=== PATIENT | female | born 1940 | race Caucasian/White ===

== ENCOUNTER 2020-05-06 08:16 | Outpatient (REF) | payer OTHER, SELFPAY ==
[2020-05-06 09:31] LABS: Alanine Aminotransferase 11 U/L (0-31); Albumin Level 3.9 g/dL (3.5-5.0); Alkaline Phosphatase 94 U/L (39-117); Aspartate Amino Transferase 14 U/L (5-31); Bilirubin Total 0.4 mg/dL (0.0-1.0); Blood Urea Nitrogen 17 mg/dL (9-16); Calcium 9.2 mg/dL (8.4-10.2); Cholesterol 134 mg/dL; Estimated Glomerular Filt Rate > 60; Glucose Fasting 100 mg/dL (60-99); HDL Cholesterol 60 mg/dL; LDL Cholesterol Calculated 60 mg/dl; Total Protein 7.3 g/dL (6.5-8.0); Triglycerides 74 mg/dL
[2020-05-06 09:56] LABS: Anion Gap 11 (12-20); Carbon Dioxide 29 mmol/L (22-29); Chloride 105 mmol/L (96-108); Sodium 141 mmol/L (135-145)
== END 2020-05-06 08:17 | disposition home or self-care (01) ==
LOC: HO.LAB 08:16
PROVIDERS: PCP Internal Medicine; Visit Provider Internal Medicine
DX: I10 Essential (primary) hypertension (principal); E55.9 Vitamin D deficiency, unspecified
CPT/HCPCS: 80053; 80061

== ENCOUNTER 2020-05-20 10:46 | Outpatient (REF) | payer OTHER, SELFPAY ==
--- NOTE | 2020-05-20 10:52 | MM_ITS ---
EXAMINATION: MM BREAST SCREENING DIGITAL TOMOSYNTHESIS, BILATERAL CLINICAL INFORMATION: Screening. Asymptomatic. The lifetime risk of breast cancer based on the Tyrer-Cuzick Model is 3.4%. COMPARISON: Mammography: 02/20/2019 and studies dating back to 02/04/2014. TECHNIQUE: Digital breast tomosynthesis is performed in both the craniocaudal and mediolateral oblique views along with computer-aided detection (CAD). Synthesized 2D images are generated from the tomosynthesis. Additional left exaggerated craniocaudal view performed. FINDINGS: The breasts are heterogeneously dense, which may obscure small masses (ACR BI-RADS breast composition Category c). There are no significant masses, abnormal calcifications, or other abnormalities. Region of questioned architectural distortion about the mid lateral breast on CC view only, is shown on tomosynthesis to represent superimposition of fibroglandular tissue. MM/MM tomosynthesis screening BI IMPRESSION: There are no significant changes from prior study. ASSESSMENT: BI-RADS 1: Negative RECOMMENDATION: Routine annual mammography screening. This patient's information was entered into a reminder system with a target due date for their next mammogram.
== END 2020-05-20 10:47 | disposition home or self-care (01) ==
LOC: HO.MAMMO 10:46
PROVIDERS: PCP Internal Medicine; Visit Provider Internal Medicine
DX: Z12.31 Encounter for screening mammogram for malignant neoplasm of breast (principal)
CPT/HCPCS: 77063; 77067

== ENCOUNTER 2020-08-28 11:08 | Outpatient (REF) | payer OTHER, SELFPAY | END 2020-08-28 11:09 | disposition home or self-care (01) | LOC: HO.LAB 11:08 | PROVIDERS: Visit Provider Internal Medicine | DX: Z20.822 Contact with and (suspected) exposure to COVID-19 (principal) | CPT/HCPCS: 36415; C9803; U0003 ==

== ENCOUNTER 2020-09-14 08:47 | Outpatient (REF) | payer MEDICARE, SELFPAY ==
[2020-09-14 09:13] LABS: MANUAL DIFF FLAG NO
[2020-09-14 09:18] LABS: Basophils Percent Auto 0.9 % (0-2); Eosinophils Absolute Auto 0.1 X10*3/uL (0.0-0.4); Eosinophils Percent Auto 1.9 % (0-4); Hematocrit 36.7 % (37-47); Hemoglobin 11.2 g/dl (12.0-16.0); Imm Gran Abs Auto 0.01 X10*3/uL (0.00-0.03); Imm Gran Pct Auto 0.2 % (0.0-0.4); Lymphocytes Absolute Auto 2.1 X10*3/uL (1.2-4.9); Lymphocytes Percent Auto 49.1 % (20-40); Mean Corpuscular HGB Conc 30.5 g/dl (31.0-35.0); Mean Corpuscular Hemoglobin 26.2 pg (27.0-33.0); Mean Corpuscular Volume 85.9 fL (80-98); Mean Platelet Volume 10.2 fL (9.4-12.3); Monocytes Absolute Auto 0.4 X10*3/uL (0.1-1.2); Monocytes Percent Auto 9.3 % (2-11); Neutrophils Absolute Auto 1.7 X10*3/uL (2.0-8.3); Neutrophils Percent Auto 38.6 % (45-73); Platelet Count 241 X10*3/uL (160-400); Red Blood Count 4.27 X10*6/uL (4.20-5.50); Red Cell Distribution Width 14.1 % (11.0-16.0); White Blood Count 4.3 X10*3/uL (4.8-10.8)
[2020-09-14 09:45] LABS: Alanine Aminotransferase 16 U/L (0-31); Albumin Level 3.8 g/dL (3.5-5.0); Alkaline Phosphatase 96 U/L (39-117); Anion Gap 10 (12-20); Aspartate Amino Transferase 16 U/L (5-31); Bilirubin Total 0.5 mg/dL (0.0-1.0); Blood Urea Nitrogen 19 mg/dL (9-16); Carbon Dioxide 30 mmol/L (22-29); Chloride 107 mmol/L (96-108); Cholesterol 147 mg/dL; Estimated Glomerular Filt Rate > 60; Glucose Fasting 109 mg/dL (60-99); HDL Cholesterol 61 mg/dL; LDL Cholesterol Calculated 69 mg/dl; Potassium 4.4 mmol/L (3.3-5.1); Sodium 143 mmol/L (135-145); Total Protein 7.3 g/dL (6.5-8.0); Triglycerides 89 mg/dL
[2020-09-14 10:19] LABS: Folate 7.5 ng/mL (> or = 4.0); Vitamin B12 240 pg/mL (200-900)
[2020-09-17 12:26] LABS: Vitamin D 25-OH, D2 11 ng/mL; Vitamin D 25-OH, D3 45 ng/mL; Vitamin D 25-OH, Total 56 ng/mL (30-100)
== END 2020-09-14 08:48 | disposition home or self-care (01) ==
LOC: HO.LAB 08:47
PROVIDERS: PCP Internal Medicine; Visit Provider Internal Medicine
DX: D51.0 Vitamin B12 deficiency anemia due to intrinsic factor deficiency (principal); I10 Essential (primary) hypertension; E78.00 Pure hypercholesterolemia, unspecified; E55.9 Vitamin D deficiency, unspecified
CPT/HCPCS: 36415; 80053; 80061; 82306; 82607; 82746; 85025

== ENCOUNTER → 2020-10-23 09:05 | Outpatient (BNV) | payer MEDICARE, SELFPAY | PROVIDERS: PCP Internal Medicine; Referring Provider Internal Medicine; Visit Provider Internal Medicine Medical Oncology | DX: D64.9 Anemia, unspecified (principal); R22.43 Localized swelling, mass and lump, lower limb, bilateral | CPT/HCPCS: 99204; 99213; 99214 ==

== ENCOUNTER 2020-10-23 10:21 | Outpatient (REF) | payer MEDICARE, SELFPAY ==
--- NOTE | ~2020-10-23 | US_ITS ---
EXAMINATION: US VENOUS ULTRASOUND WITH DOPPLER LOWER EXTREMITY, LEFT CLINICAL INFORMATION: Left lower extremity pain COMPARISON: None TECHNIQUE: Ultrasound of the deep veins is performed from the hip to the calf with compression sonography and color and pulse Doppler assessment. Spectral analysis with color-flow imaging is performed. FINDINGS: There is normal venous compression and respiratory variation and augmented flow. The visualized common femoral vein, superficial femoral vein, profunda femoral vein, popliteal vein, and the trifurcation region shows no evidence of deep venous thrombosis. There is no significant popliteal fossa cyst. No popliteal artery aneurysm. If the patient's symptoms persist, followup ultrasound in 5 days 7 days might be of value to exclude proximal propagation from a non-visualized calf vein. US/US venous duplex LE LT IMPRESSION: No acute DVT demonstrated in the left lower extremity.
== END 2020-10-23 10:22 | disposition home or self-care (01) ==
LOC: HO.US 10:21
PROVIDERS: PCP Internal Medicine; Visit Provider Internal Medicine Medical Oncology
DX: M79.605 Pain in left leg (principal); M79.89 Other specified soft tissue disorders
CPT/HCPCS: 93971

== ENCOUNTER 2020-10-28 08:13 | Outpatient (REF) | payer MEDICARE, SELFPAY ==
--- NOTE | ~2020-10-28 | XR_ITS ---
EXAMINATION: XR HIP, LEFT CLINICAL INFORMATION: Pain COMPARISON: None TECHNIQUE: Two views of the left hip. FINDINGS: No acute fracture or dislocation. Femoral head is spherical. Small acetabular osteophytes. Mild sacroiliac and symphysis pubis degenerative change. Soft tissues unremarkable. XR/XR hip LT min 2V IMPRESSION: No acute fracture or dislocation. Mild left hip arthrosis.
--- NOTE | ~2020-10-28 | XR_ITS ---
EXAMINATION: XR ANKLE, RIGHT CLINICAL INFORMATION: Pain COMPARISON: None TECHNIQUE: AP, lateral, and mortise views of the right ankle. FINDINGS: No acute fracture or dislocation. Ankle mortise is congruent. Talar dome intact. Small tibiotalar marginal osteophytes. Small Achilles tendon enthesophyte. Small marginal osteophyte along the dorsal tarsometatarsal articulation. Diffuse soft tissue swelling. No ankle joint effusion. XR/XR ankle RT min 3V IMPRESSION: No acute findings.
--- NOTE | ~2020-10-28 | US_ITS ---
EXAMINATION: US ABDOMEN COMPLETE CLINICAL INFORMATION: Thrombocytopenia COMPARISON: None TECHNIQUE: Real-time imaging of the abdominal viscera. FINDINGS: PANCREAS: Normal. ABDOMINAL AORTA: The proximal, mid, and distal segments are normal in caliber. INFERIOR VENA CAVA: Visualized portions are normal. LIVER: Liver echotexture is normal. The liver is normal in size. The liver contour is normal. No focal hepatic lesion. There is no intrahepatic biliary duct dilatation seen. GALLBLADDER: Surgically absent. COMMON BILE DUCT: Normal in caliber measuring 0.7 cm in diameter. RIGHT KIDNEY: Normal. No hydronephrosis. No renal calculi or focal parenchymal lesions. The kidney measures 10.3 cm in maximum dimension. LEFT KIDNEY: Normal. No hydronephrosis. No renal calculi or focal parenchymal lesions. The kidney measures 10.3 cm in maximum dimension. SPLEEN: Normal. The spleen measures 7.4 cm in maximum dimension. FREE FLUID: None. US/US abdomen complete IMPRESSION: Unremarkable exam. Normal-size spleen.
== END 2020-10-28 08:14 | disposition home or self-care (01) ==
LOC: HO.US 08:13
PROVIDERS: PCP Internal Medicine Medical Oncology; Visit Provider Internal Medicine Medical Oncology
DX: D75.89 Other specified diseases of blood and blood-forming organs (principal); M25.552 Pain in left hip; M25.571 Pain in right ankle and joints of right foot
CPT/HCPCS: 73502; 73610; 76700; 93005; 99212

== ENCOUNTER → 2020-11-13 09:52 | Outpatient (BNVA) | payer MEDICARE, SELFPAY | PROVIDERS: Visit Provider Nurse Practitioner | CPT/HCPCS: Q3014 ==

== ENCOUNTER → 2020-12-04 09:12 | Outpatient (REF) | payer MEDICARE, SELFPAY ==
--- NOTE | 2020-12-04 09:30 | CA_ITS ---
Transthoracic Echocardiogram Patient (Last, First, Middle): Alejandra Quinones, Gender: Female Date of : 1940 Age: 80 Procedure Date: 12/04/2020 Procedure Type: Transthoracic Echocardiogram Location: OP Height: 154.94 cm Weight: 88.45 kg BSA: 1.87 m2 Heart Rate: bpm BP: 130 / 60 mmHg Portrait Consultant: ANNIA Referring MD: Fercho Castanon MD Symptoms: I35.0 NON RHEUMATIC AVS Study Quality: Fair/contrast ECG Rhythm: Sinus Conclusions: - The left ventricular systolic function is normal. The visually estimated ejection fraction is >70%. - There is moderate aortic valve stenosis. The peak aortic velocity is 4.14 m/s with a calculated peak gradient of 69 mmHg. The mean gradient is 38 mmHg. The aortic valve area is 1.40 cm2. Dimensionless index 0.48. Hyperdynamic state could contribute to elevated gradients. Correlate clinically. - Mild pulmonary hypertension is present. Findings Procedure Information Contrast agent, definity, is being given per protocol without apparent complications. Left Ventricle Normal left ventricular cavity size. There is mildly increased left ventricular wall thickness. The left ventricular systolic function is normal. The visually estimated ejection fraction is >70%. There is no evidence of regional wall motion abnormalities. There is no dynamic left ventricular outflow tract obstruction. E/E prime ratio is between 8 and 15 consistent with indeterminate filling pressures. Evidence suggests grade I (mild) diastolic dysfunction. Right Ventricle Normal right ventricular cavity size and systolic function. Atria Both atria are normal in size. Aortic Valve There is moderate calcification of the aortic valve. There is moderate aortic valve stenosis. The peak aortic velocity is 4.14 m/s with a calculated peak gradient of 69 mmHg. The mean gradient is 38 mmHg. The aortic valve area is 1.40 cm2. There is mild aortic valve regurgitation. Dimensionless index 0.48. Mitral Valve The mitral valve appears normal. There is mild mitral annular calcification. There is trace mitral valve regurgitation. There is no mitral valve stenosis. Pulmonic Valve The pulmonic valve was not well visualized. Tricuspid Valve Normal tricuspid valve structure. There is mild tricuspid valve regurgitation. The right ventricular systolic pressure is 42 mmHg. Mild pulmonary hypertension is present. Great Vessels The aortic annulus, sinuses of valsalva, and asc aorta are normal in size. Venous The inferior vena cava is normal in size and collapses greater than 50% with inspiration. Pericardium/Pleural There is no evidence of pericardial effusion. Prior Study Comparison Changes noted compared to prior study dated: 02/04/2019. Aortic valve gradients are higher but valve area is also slightly larger. LV is now hyperdynamic. Measurements 2D Linear Measurements IVSd: 1.15 0.6-0.9/0.6-1.0 cm LVIDd: 3.40 3.9-5.3/4.2-5.9 cm LVIDs: 2.17 2.0-3.6 cm LVPWd: 1.20 0.7-1.1 cm Ao Root: 2.92 2.1-3.5 cm LV Mass: 157.21 67-162/88-224 g LVOT Diam: 1.93 3.0+(-)1.3 cm Mitral Valve MV Pk E: 0.78 MV PK A: 1.12 MV Decel Time: 110.67 E/A: 0.70 E'Lateral: 0.05 E'Medial: 0.08 Decel Childress: 7.06 Aortic Valve AoV Pk Johnie: 4.14 AoV Mn Johnie: 2.94 AoV VTI: 0.84 AoV Pk Grad: 68.63 Aov Mn Grad: 38.15 GABRIELA Cont.VTI: 1.40 AI Pk Johnie: 4.08 AI Childress: 3.28 LVOT LVOT Pk Johnie: 1.74 LVOT Mn Johnie: 1.29 LVOT VTI: 0.40 LVOT Pk Grad: 12.11 LVOT Mn Grad: 7.17 LVOT Diam: 1.93 LVOT Area: 2.92 Diastolic Function MV Pk E: 0.78 MV Pk A: 1.12 E/A: 0.70 E'Medial: 0.08 E' Laterial: 0.05 Tricuspid Valve TR Pk Johnie: 3.13 TR Pk Grad: 39.14 RA Press: 3.00 RVSP: 42.00 Great Vessels Aorta Ao Root-2D: 2.92 2.0-3.7 cm Ao Asc: 3.20 2.1-3.4 cm Updated in Other Vendor System with Status of Final Joni Mercer MD electronically signed on 12/05/2020 3:56:26 PM with status of Final
== END ==
LOC: HO.CARD 09:12
PROVIDERS: PCP Internal Medicine; Visit Provider Internal Medicine Cardiovascular Disease
DX: I35.0 Nonrheumatic aortic (valve) stenosis (principal)
CPT/HCPCS: 93306; Q9957

== ENCOUNTER → 2020-12-16 10:04 | Outpatient (BNVA) | payer MEDICARE, SELFPAY | PROVIDERS: PCP Internal Medicine; Referring Provider Internal Medicine; Visit Provider Internal Medicine | DX: I35.0 Nonrheumatic aortic (valve) stenosis (principal); I10 Essential (primary) hypertension; G47.33 Obstructive sleep apnea (adult) (pediatric); M79.89 Other specified soft tissue disorders; Z99.89 Dependence on other enabling machines and devices | CPT/HCPCS: 99212 ==

== ENCOUNTER 2021-01-01 09:19 | Day surgery (SDC) | payer MEDICARE, SELFPAY ==
--- NOTE | 2021-01-01 10:13 | P.OP_ITS ---
Operative Note Operative Note Date of Service: 01/01/21 Narrative: Pre-op diagnosis: Colon cancer screening, history of colon polyps Post-op diagnosis: other (Colon polyps, diverticulosis, hemorrhoids) Procedure: COLONOSCOPY TILL CECUM WITH BIOPSY AND SNARE POLYPECTOMY Consent: Indications for the procedure and potential complications of bleeding, perforation, reaction to medications and missed diagnosis were discussed with the patient and informed consent was obtained. Instrument: Olympus PCF H 190 L variable stiffness pediatric colonoscope Monitoring: Vital signs and clinical assessment, intermittent blood pressure monitoring, continuous EKG monitoring, Pulse oximetry and Carbon Dioxide monitoring were done throughout the procedure. Colon withdrawl time was 26 minutes. Procedure: The patient was placed in the left lateral decubitis position and pre-procedure medications were administered. After a digital rectal examination of the ano-rectum, the video colonoscope was inserted into the rectum and advanced through the colon to the cecum. The colonoscope was slowly withdrawn in a retrograde panoramic fashion and the colon mucosa was carefully examined including a retroflexed view of the rectum. Findings and interventions are described below. Procedure Difficulty: Without difficulty Findings: Terminal Ileum: Not evaluated Cecum: Normal Ascending Colon: A 5-6 mm sessile polyp removed with a cold bx Transverse Colon: A 7-8 mm sessile polyp removed with a cold snare. A 12-15 mm sessile polyp removed with a hot snare Descending Colon: Moderate diverticulosis Sigmoid Colon: Moderate diverticulosis Rectum: Normal Ano-rectum: Normal Colon preparation: Good after copious irrigation Impression and Post Procedure Diagnosis: Colonoscopy Findings: Three polyps removed Moderate diverticulosis seen in the left colon Moderate hemorrhoids on retroflexed exam. Plan: Await pathology results Patient has an appointment on 01/15/21 in the [facility] with Latisha Mishra NP. Repeat Colonoscopy interval based on path results - in 3-5 years if polyps are adenomatous and 10 years if polyps are hyperplastic. Above findings were reviewed with the patient and colon polyps and diverticulosis handouts were given in the discharge area Surgeon: Marek Cordero MD Anesthesia: MAC (Dayan Melendez CRNA) Was an Hand Tennis Ball Coverer used for this Procedure?: Yes Hand Tennis Ball Coverer: Reyna Pena Estimated blood loss (mL): 0 Pathology: other (A: ASCENDING COLON POLYP B- TRANSVERSE COLON POLYPS) Condition: stable Disposition: PACU
--- NOTE | 2021-01-01 10:14 | P.HPSUR_ITS ---
Pre-Procedural Eval Section A The patient is an INPATIENT: No The History & Physical has been completed within 30 days and I have reviewed it.: No Section B Chief Complaint: Screening Details of Present Illness: Colon cancer screening, history of colon polyps Present Medications: see Short Stay Collaborative assessment Medical History: Significant History (Aortic valve stenosis Bicytopenia Depression with anxiety Essential hypertension GERD (gastroesophageal reflux disease) Hypovitaminosis D Left hip pain Long-term use of aspirin therapy Non- rheumatic aortic stenosis CHRIS on CPAP Osteopenia Pernicious anemia Polyuria Pure hypercholesterolemia Right ank) History of Previous Operations: Relevant previous surgery/procedure and date(s) (History of bilateral cataract extraction History of breast biopsy History of cholecystectomy History of esophagogastroduodenoscopy (EGD) History of hysterectomy Hx of colonoscopy) Allergies: Allergies Allergy/AdvReac Type Severity Reaction Status Date / Time No Known Allergies Allergy Verified 12/16/20 10:30 Review of Systems Sugical H&P ROS: Negative: Constitution, Cardiovascular, Respiratory and Gastrointestinal Exam Surgical H&P Exam: Normal: Lungs, Normal: Extremities and Normal: Abdomen and Significant Findings: Heart (4/6 systolic murmur in aortic area) Plan Diagnosis/Plan: Unchanged I have reviewed the history and physical and performed a pertinent physical examination on my patient. No changes have occurred unless specified.
--- NOTE | 2021-01-01 10:14 | HO.ANESPROP2 ---
[facility] Active Problems Active Problems: All Active Problems (Updated 11/17/20 @ 08:20 by Hansel Santos MD) History of colon polyps (Acute) Colon cancer screening (Acute) Non-rheumatic aortic stenosis (Acute) Right ankle pain (Acute) Leg swelling (Acute) Left hip pain (Acute) Bicytopenia (Acute) Polyuria (Acute) Long-term use of aspirin therapy (Acute) Aortic valve stenosis (Acute) CHRIS on CPAP (Acute) Hypovitaminosis D (Acute) GERD (gastroesophageal reflux disease) (Acute) Depression with anxiety (Acute) Pure hypercholesterolemia (Acute) Osteopenia (Acute) Essential hypertension (Acute) Pernicious anemia (Acute) Past Medical History Medical History Aortic valve stenosis Bicytopenia Depression with anxiety Essential hypertension GERD (gastroesophageal reflux disease) Hypovitaminosis D Left hip pain Long-term use of aspirin therapy Non-rheumatic aortic stenosis CHRIS on CPAP Osteopenia Pernicious anemia Polyuria Pure hypercholesterolemia Right ankle pain Family History Family History Father No problems noted. Mother Chronic mental illness Hypertension CVD (cardiovascular disease) Family/Other FH: depression Daughter No problems noted. Daughter No problems noted. Son No problems noted. Son No problems noted. Son No problems noted. Son No problems noted. Surgical History Surgical History History of bilateral cataract extraction History of breast biopsy History of cholecystectomy History of esophagogastroduodenoscopy (EGD) History of hysterectomy Hx of colonoscopy Social History Social History Alcohol intake: never Patient Tobacco Use Status: Never used Tobacco Use of substances other than those prescribed or required for medical reasons: No Are you DNR?: No Advance Directives: No Advance Directives Information Provided: Yes Meds Allergies Allergy/AdvReac Type Severity Reaction Status Date / Time No Known Allergies Allergy Verified 01/01/21 10:33 Home Medications Medication Instructions Recorded Confirmed Last Taken Type alprazolam 0.5 mg tablet 0.5 mg PO TID PRN 05/18/20 12/16/20 Unknown History atorvastatin 40 mg tablet 40 mg PO DAILY 05/18/20 12/16/20 Unknown History calcium carbonate 600 mg (1,500 1 tab PO DAILY 05/18/20 12/16/20 Unknown History mg)-vitamin D3 400 unit tablet mirtazapine 15 mg tablet 7.5 mg PO BEDTIME 05/18/20 12/16/20 Unknown History omeprazole 20 mg capsule,delayed 20 mg PO DAILY 05/18/20 12/16/20 Unknown History release lisinopril 30 mg tablet 30 mg PO DAILY 12/16/20 12/16/20 Unknown History Exam Exam Date and Time: January 01, 2021 1014 Airway Mallampati Class: II TM Dist: >3cm Neck ROM: Limited Loose/Missing/Broken Teeth: Yes Heart: RRR Lungs: CTA Assessment and Plan Assessment Anesthesia Assessment: Anesthesia Plan Discussed and Chart Reviewed Final Anesthetic Review NPO: Yes ASA Class: III Final Preanesthetic Review: Meds/Allgs Chart Reviewed, Consent Obtained/Reviewed and Anes Risks/Benef Reviewed Patient Risk: Intermediate Procedure Risk: Low Anesthetic Plan Anesthetic Plan: MAC: Disposition: Standard PACU
[2021-01-01] MEDS: Lactated Ringers 1,000 ML 100 ML IVCONT (10:30)
[2021-01-01 10:37] VITALS: BP 128/66; PULSE 103; RESP 16; TEMP 36.8; O2SAT 97; BMI 37.3
[2021-01-01 12:38] VITALS: BP 125/50; PULSE 84; RESP 18; TEMP 36.3; O2SAT 99
[2021-01-01 12:53] VITALS: BP 134/65; PULSE 85; RESP 18; O2SAT 99
== END 2021-01-01 14:29 | disposition home or self-care (01) ==
PROVIDERS: PCP Internal Medicine; Visit Provider Internal Medicine Gastroenterology
PROC: 0DJD8ZZ Inspection of Lower Intestinal Tract, Via Natural or Artificial Opening Endoscopic (ICD-10-PCS; CPT 45378; principal; 2021-01-01 10:30)
DX: Z12.11 Encounter for screening for malignant neoplasm of colon (principal); Z86.010 Personal history of colon polyps; D12.2 Benign neoplasm of ascending colon; D12.3 Benign neoplasm of transverse colon; K57.30 Diverticulosis of large intestine without perforation or abscess without bleeding; K64.8 Other hemorrhoids; K21.9 Gastro-esophageal reflux disease without esophagitis; I10 Essential (primary) hypertension; I35.0 Nonrheumatic aortic (valve) stenosis; D46.A Refractory cytopenia with multilineage dysplasia; J44.9 Chronic obstructive pulmonary disease, unspecified; E55.9 Vitamin D deficiency, unspecified; M85.80 Other specified disorders of bone density and structure, unspecified site; G47.33 Obstructive sleep apnea (adult) (pediatric); Z99.89 Dependence on other enabling machines and devices; Z79.82 Long term (current) use of aspirin; Z90.49 Acquired absence of other specified parts of digestive tract
CPT/HCPCS: 45385; 45380; 88305

== ENCOUNTER → 2021-01-15 15:02 | Outpatient (BNVA) | payer MEDICARE, SELFPAY | PROVIDERS: Visit Provider Nurse Practitioner | DX: Z13.89 Encounter for screening for other disorder (principal) | CPT/HCPCS: Q3014 ==

== ENCOUNTER 2021-05-28 10:10 | Outpatient (REF) | payer MEDICARE, SELFPAY ==
--- NOTE | ~2021-05-28 | MM_ITS ---
EXAMINATION: MM SCREENING DIGITAL BREAST TOMOSYNTHESIS, BILATERAL CLINICAL INFORMATION: Screening. Asymptomatic. The lifetime risk of breast cancer based on the Tyrer-Cuzick Model is 2%. COMPARISON: Mammography: 05/20/2020, 02/20/2019, 02/07/2018 TECHNIQUE: Digital breast tomosynthesis is performed in both the craniocaudal and mediolateral oblique views along with computer-aided detection (CAD). Synthesized 2D images are generated from the tomosynthesis. FINDINGS: There are scattered areas of fibroglandular density (ACR BI-RADS breast composition Category b). Breast tissue composition borders on heterogeneously dense. Parenchymal pattern is similar to prior exams. No developing density. There are no significant masses, abnormal calcifications, or other abnormalities. MM/MM tomosynthesis screening BI IMPRESSION: No mammographic evidence of malignancy. ASSESSMENT: BI-RADS 1: Negative RECOMMENDATION: Routine annual mammography screening. This patient's information was entered into a reminder system with a target due date for their next mammogram.
== END 2021-05-28 10:11 | disposition home or self-care (01) ==
LOC: HO.MAMMO 10:10
PROVIDERS: Visit Provider Internal Medicine
DX: Z12.31 Encounter for screening mammogram for malignant neoplasm of breast (principal)
CPT/HCPCS: 77063; 77067

== ENCOUNTER 2021-06-17 08:49 | Outpatient (REF) | payer MEDICARE, SELFPAY ==
[2021-06-17 09:11] LABS: Hematocrit 38.5 % (37.0-47.0); Hemoglobin 11.9 g/dl (12.0-16.0); Mean Corpuscular HGB Conc 30.9 g/dl (31.0-35.0); Mean Corpuscular Hemoglobin 26.8 pg (27.0-33.0); Mean Corpuscular Volume 86.7 fL (80.0-98.0); Mean Platelet Volume 10.2 fL (9.4-12.3); Platelet Count 252 X10*3/uL (160-400); Red Blood Count 4.44 X10*6/uL (4.20-5.50); White Blood Count 4.2 X10*3/uL (4.8-10.8)
[2021-06-17 10:06] LABS: Alanine Aminotransferase 15 U/L (0-31); Albumin Level 3.7 g/dL (3.5-5.0); Alkaline Phosphatase 76 U/L (39-117); Anion Gap 11 (12-20); Aspartate Amino Transferase 17 U/L (5-31); Bilirubin Total 0.5 mg/dL (0.0-1.0); Blood Urea Nitrogen 17 mg/dL (9-16); Calcium 8.6 mg/dL (8.4-10.2); Carbon Dioxide 27 mmol/L (22-29); Chloride 107 mmol/L (96-108); Cholesterol 200 mg/dL; Estimated Glomerular Filt Rate 54; Glucose Fasting 111 mg/dL (60-99); HDL Cholesterol 52 mg/dL; LDL Cholesterol Calculated 127 mg/dl; Potassium 4.5 mmol/L (3.3-5.1); Sodium 140 mmol/L (135-145); Total Protein 7.2 g/dL (6.5-8.0); Triglycerides 108 mg/dL
[2021-06-17 10:38] LABS: Folate 14.1 ng/mL (> or = 4.0); Vitamin B12 217 pg/mL (200-900)
== END 2021-06-17 08:50 | disposition home or self-care (01) ==
LOC: HO.LAB 08:49
PROVIDERS: PCP Internal Medicine; Visit Provider Internal Medicine
DX: D75.89 Other specified diseases of blood and blood-forming organs (principal); I10 Essential (primary) hypertension; E78.5 Hyperlipidemia, unspecified; D51.0 Vitamin B12 deficiency anemia due to intrinsic factor deficiency
CPT/HCPCS: 36415; 80053; 80061; 82607; 82746; 85027

== ENCOUNTER → 2021-07-28 10:13 | Outpatient (REF) | payer MEDICARE, SELFPAY ==
--- NOTE | 2021-07-28 10:18 | CA_ITS ---
Transthoracic Echocardiogram Patient (Last, First, Middle): Alejandra Quinones, Gender: Female Date of : 1940 Age: 80 Procedure Date: 07/28/2021 Procedure Type: Transthoracic Echocardiogram Location: OP Height: 127. cm Weight: 88.45 kg BSA: 1.62 m2 Heart Rate: bpm BP: 130 / 75 mmHg Country Manager: GRAHAM Referring MD: Joni Mercer MD Job Placement Specialist: Fercho Castanon MD Symptoms: I35.0 - Nonrheumatic aortic (valve) stenosis Study Quality: Fair ECG Rhythm: Sinus Conclusions: - 1.Hyperdynamic LV systolic function with impaired relaxation filling pattern. Obstructive physiology cannot be entirely ruled out. 2. At least moderate aortic stenosis 3. Normal RVSP 4. No pericardial effusion Findings Left Ventricle Normal left ventricular cavity size. There is normal left ventricular wall thickness. The left ventricular systolic function is hyperdynamic. The visually estimated ejection fraction is >70%. Spectral Doppler is indicative of an impaired relaxation filling pattern. E/E prime ratio is between 8 and 15 consistent with indeterminate filling pressures. Right Ventricle Normal right ventricular cavity size and systolic function. Atria The left atrium is mildly dilated. There is lipomatous hypertrophy of the interatrial septum. There is no evidence of interatrial shunt. The right atrium is normal in size. Aortic Valve There is mild calcification of the aortic valve. There is moderate thickening of the aortic valve. There is moderate aortic valve stenosis. The peak aortic gradient is 67 mmHg.The mean gradient is 35 mmHg. The aortic valve area is 1.32 cm2. There is mild aortic valve regurgitation. There is discrepancy between mean gradients and calculated GABRIELA, either because of increased stroke volume or due to some element of sub aortic valvular obstruction. Clinical correlation suggested. Planimetry of aortic valve can be considered with PARAS Mitral Valve There is mild anterior and moderate posterior mitral leaflet thickening. There is moderate mitral annular calcification. There is trace mitral valve regurgitation. There is no mitral valve stenosis. Pulmonic Valve The pulmonic valve was not well visualized. Tricuspid Valve The right ventricular systolic pressure is 30 mmHg. There is no evidence of pulmonary hypertension. Great Vessels All visible segments of the aorta are normal in size. The pulmonary artery was not well visualized. Venous The inferior vena cava is normal in size and collapses greater than 50% with inspiration. Pericardium/Pleural There is no evidence of pericardial effusion. Prior Study Comparison No significant change compared to prior study dated: 12/04/2020. Measurements 2D Linear Measurements IVSd: 0.99 0.6-0.9/0.6-1.0 cm LVIDd: 3.72 3.9-5.3/4.2-5.9 cm LVIDd Index: 2.30 2.4-3.2/2.2-3.1 cm/m2 LVIDs: 1.64 2.0-3.6 cm LVPWd: 0.92 0.7-1.1 cm Ao Root: 2.80 2.1-3.5 cm LA Diam: 3.30 2.7-3.8/3.0-4.0 cm LAIDs Index: 2.04 1.5-2.3 cm/m2 LV Mass: 132.25 67-162/88-224 g LV Mass Index: 81.64 43-95/49-115 g/m2 LVOT Diam: 1.90 3.0+(-)1.3 cm Mitral Valve MV Pk E: 0.85 MV PK A: 1.51 MV Decel Time: 98.00 E/A: 0.60 E'Lateral: 5.11 E'Medial: 7.07 E/E' Med: 12.00 E/E' Lat: 16.60 PHT: 29.00 MVA PHT: 7.59 Decel [place]: 8.59 Aortic Valve AoV Pk Johnie: 4.09 AoV Mn Johnie: 2.74 AoV VTI: 0.77 AoV Pk Grad: 67.00 Aov Mn Grad: 35.00 GABRIELA Cont.VTI: 1.32 LVOT LVOT Pk Johnie: 1.61 LVOT Mn Johnie: 1.11 LVOT VTI: 0.36 LVOT Pk Grad: 10.00 LVOT Mn Grad: 6.00 LVOT Diam: 1.90 LVOT Area: 2.84 Diastolic Function MV Pk E: 0.85 MV Pk A: 1.51 E/A: 0.60 E'Medial: 7.07 E/E' Med: 12.00 E' Laterial: 5.11 E/E' Lat: 16.60 Right Ventricle TAPSE (mm): 26.10 TVS' Johnie: 19.40 Tricuspid Valve TR Pk Johnie: 2.62 TR Pk Grad: 27.00 RA Press: 3.00 RVSP: 30.00 Great Vessels Aorta Ao Root-2D: 2.80 2.0-3.7 cm Ao Asc: 3.20 2.1-3.4 cm Updated in Other Vendor System with Status of Final Fercho Castanon MD electronically signed on 07/28/2021 2:04:07 PM with status of Final
== END ==
LOC: HO.CARD 10:13
PROVIDERS: Visit Provider Internal Medicine
DX: I35.0 Nonrheumatic aortic (valve) stenosis (principal)
CPT/HCPCS: 93306

== ENCOUNTER → 2021-09-06 11:03 | Outpatient (BNVA) | payer MEDICARE, SELFPAY | PROVIDERS: PCP Internal Medicine; Referring Provider Internal Medicine; Visit Provider Internal Medicine | DX: I35.0 Nonrheumatic aortic (valve) stenosis (principal); I10 Essential (primary) hypertension; G47.33 Obstructive sleep apnea (adult) (pediatric); M79.89 Other specified soft tissue disorders; Z99.89 Dependence on other enabling machines and devices | CPT/HCPCS: 99212 ==

== ENCOUNTER 2021-10-25 09:18 | Outpatient (REF) | payer OTHER, SELFPAY ==
[2021-10-25 09:33] LABS: MANUAL DIFF FLAG NO
[2021-10-25 09:51] LABS: Basophils Absolute Auto 0.1 X10*3/uL (0.0-0.2); Basophils Percent Auto 1.3 % (0-2); Eosinophils Absolute Auto 0.1 X10*3/uL (0.0-0.4); Eosinophils Percent Auto 2.6 % (0-4); Hematocrit 40.1 % (37.0-47.0); Hemoglobin 12.3 g/dl (12.0-16.0); Lymphocytes Absolute Auto 1.8 X10*3/uL (1.2-4.9); Lymphocytes Percent Auto 45.2 % (20-40); Mean Corpuscular HGB Conc 30.7 g/dl (31.0-35.0); Mean Corpuscular Hemoglobin 26.8 pg (27.0-33.0); Mean Corpuscular Volume 87.4 fL (80.0-98.0); Mean Platelet Volume 10.5 fL (9.4-12.3); Monocytes Absolute Auto 0.4 X10*3/uL (0.1-1.2); Neutrophils Absolute Auto 1.6 x10*3/uL (2.0-8.3); Neutrophils Percent Auto 41.9 % (45-73); Platelet Count 271 X10*3/uL (160-400); Red Blood Count 4.59 X10*6/uL (4.20-5.50); Red Cell Distribution Width 14.1 % (11.0-16.0); White Blood Count 3.9 X10*3/uL (4.8-10.8)
[2021-10-25 10:23] LABS: Alanine Aminotransferase 11 U/L (0-31); Albumin Level 3.9 g/dL (3.5-5.0); Alkaline Phosphatase 84 U/L (39-117); Anion Gap 12 (12-20); Aspartate Amino Transferase 15 U/L (5-31); Bilirubin Total 0.4 mg/dL (0.0-1.0); Blood Urea Nitrogen 18 mg/dL (9-16); Calcium 9.7 mg/dL (8.4-10.2); Carbon Dioxide 27 mmol/L (22-29); Chloride 109 mmol/L (96-108); Estimated Glomerular Filt Rate 56; Glucose Random 109 mg/dL (60-115); Potassium 5.1 mmol/L (3.3-5.1); Sodium 143 mmol/L (135-145); Total Protein 7.5 g/dL (6.5-8.0)
[2021-10-25 10:34] LABS: Ferritin 54 ng/mL (10-250)
== END 2021-10-25 09:19 | disposition home or self-care (01) ==
LOC: HO.LAB 09:18
PROVIDERS: PCP Internal Medicine; Visit Provider Internal Medicine Medical Oncology
DX: D75.89 Other specified diseases of blood and blood-forming organs (principal)
CPT/HCPCS: 36415; 80053; 82728; 85025

== ENCOUNTER → 2021-11-01 09:47 | Outpatient (BNVA) | payer OTHER, SELFPAY | PROVIDERS: PCP Internal Medicine; Referring Provider Internal Medicine; Visit Provider Internal Medicine | DX: I35.0 Nonrheumatic aortic (valve) stenosis (principal); I10 Essential (primary) hypertension; G47.33 Obstructive sleep apnea (adult) (pediatric); M79.89 Other specified soft tissue disorders; Z99.89 Dependence on other enabling machines and devices | CPT/HCPCS: 93005; 99212 ==

== ENCOUNTER 2021-12-03 07:10 | Outpatient (REF) | payer OTHER, SELFPAY ==
--- NOTE | ~2021-12-03 | XR_ITS ---
EXAMINATION: XR SHOULDER, RIGHT CLINICAL INFORMATION: Pain COMPARISON: None TECHNIQUE: Three views of the right shoulder. FINDINGS: Bone alignment is normal. No fracture or dislocation is seen. The glenohumeral joint is normal. There is arthritis at the acromioclavicular joint. Soft tissues are unremarkable. 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
== END 2021-12-03 07:11 | disposition home or self-care (01) ==
LOC: HO.HOSX 07:10
PROVIDERS: Visit Provider Physician Assistant
DX: M19.011 Primary osteoarthritis, right shoulder (principal); M75.101 Unspecified rotator cuff tear or rupture of right shoulder, not specified as traumatic
CPT/HCPCS: 20610; 73030; 99202; J1040

== ENCOUNTER → 2022-01-12 14:02 | Outpatient (REF) | payer OTHER, SELFPAY ==
--- NOTE | 2022-01-12 14:06 | CA_ITS ---
Transthoracic Echocardiogram Patient (Last, First, Middle): Alejandra Quinones, Gender: Female Date of : 1940 Age: 81 Procedure Date: 01/12/2022 Procedure Type: Transthoracic Echocardiogram Location: OP Height: 157.48 cm Weight: 81.65 kg BSA: 1.83 m2 Heart Rate: bpm BP: 124 / 60 mmHg Celluloid Trimmer: Referring MD: Joni Mercer MD Block Sawyer: Fercho Castanon MD Symptoms: I35.0 - Nonrheumatic aortic (valve) stenosis Study Quality: Adequate ECG Rhythm: Sinus Conclusions: - 1. Hyperdynamic LV systolic function with LVEF of greater than 70% with impaired relaxation filling pattern 2. At least moderate aortic stenosis 3. Normal RV systolic pressure 4. No gross pericardial effusion Findings Left Ventricle Normal left ventricular cavity size. There is normal left ventricular wall thickness. The left ventricular systolic function is hyperdynamic. The visually estimated ejection fraction is >70%. Spectral Doppler is indicative of an impaired relaxation filling pattern. E/E prime ratio is between 8 and 15 consistent with indeterminate filling pressures. Right Ventricle Normal right ventricular cavity size and systolic function. Atria The left atrium is mildly dilated. There is lipomatous hypertrophy of the interatrial septum. There is no evidence of interatrial shunt. The right atrium is normal in size. Aortic Valve There is moderate calcification of the aortic valve. There is moderate thickening of the aortic valve. There is moderate aortic valve stenosis. The mean gradient is 38 mmHg. There is mild aortic valve regurgitation. mean gradient across aortic valve is mildly increased compared to prior study from 35 mmHg to 38 mmHg. The calculated valve area on this study is probably over estimation of severity of aortic stenosis, due to underestimation of LVOT size which is measured at 1.9 cm in diameter on this study. Also based on the gradient level the aortic valvular stenosis appears to be more moderate related to possibly subaortic obstructive physiology or high stroke volume Mitral Valve There is mild anterior and posterior mitral leaflet thickening. There is mild mitral annular calcification. There is trace mitral valve regurgitation. There is no mitral valve stenosis. Pulmonic Valve The pulmonic valve was not well visualized. Tricuspid Valve Likely normal tricuspid valve structure and function. There is mild tricuspid valve regurgitation. The right ventricular systolic pressure is normal. The right ventricular systolic pressure is 34 mmHg. Normal right atrial pressure. There is no evidence of pulmonary hypertension. Great Vessels All visible segments of the aorta are normal in size. The pulmonary artery was not well visualized. Venous The inferior vena cava is normal in size and collapses greater than 50% with inspiration. Pericardium/Pleural There is no evidence of pericardial effusion. Prior Study Comparison Changes noted compared to prior study dated: 07/28/2021. minimally increased gradient across aortic valve Recommendations, Care & Conclusions Consider a PARAS if clinically appropriate. Measurements 2D Linear Measurements IVSd: 1.07 0.6-0.9/0.6-1.0 cm LVIDd: 3.96 3.9-5.3/4.2-5.9 cm LVIDd Index: 2.16 2.4-3.2/2.2-3.1 cm/m2 LVIDs: 2.16 2.0-3.6 cm LVPWd: 1.08 0.7-1.1 cm Ao Root: 2.70 2.1-3.5 cm LA Diam: 3.60 2.7-3.8/3.0-4.0 cm LAIDs Index: 1.97 1.5-2.3 cm/m2 LV Mass: 172.64 67-162/88-224 g LV Mass Index: 94.34 43-95/49-115 g/m2 LVOT Diam: 1.90 3.0+(-)1.3 cm Mitral Valve MV Pk E: 0.84 MV PK A: 1.28 MV Decel Time: 214.00 E/A: 0.70 E'Lateral: 4.57 E'Medial: 5.98 E/E' Med: 14.00 E/E' Lat: 18.30 PHT: 63.00 MVA PHT: 3.49 Decel Terry: 3.91 Aortic Valve AoV Pk Johnie: 4.01 AoV Mn Johnie: 2.91 AoV VTI: 0.91 AoV Pk Grad: 64.00 Aov Mn Grad: 38.00 GABRIELA Cont.VTI: 1.13 LVOT LVOT Pk Johnie: 1.61 LVOT Mn Johnie: 1.18 LVOT VTI: 0.36 LVOT Pk Grad: 10.00 LVOT Mn Grad: 6.00 LVOT Diam: 1.90 LVOT Area: 2.84 Diastolic Function MV Pk E: 0.84 MV Pk A: 1.28 E/A: 0.70 E'Medial: 5.98 E/E' Med: 14.00 E' Laterial: 4.57 E/E' Lat: 18.30 Right Ventricle TAPSE (mm): 29.00 TVS' Johnie: 14.00 Tricuspid Valve TR Pk Johnie: 2.79 TR Pk Grad: 31.00 RA Press: 3.00 RVSP: 34.00 Great Vessels Aorta Ao Root-2D: 2.70 2.0-3.7 cm Ao Asc: 3.50 2.1-3.4 cm Pulmonary Valve PV Pk Johnie: 1.26 Peak PV Grad: 6.00 Updated in Other Vendor System with Status of Final Fercho Castanon MD electronically signed on 01/12/2022 5:09:57 PM with status of Final
== END ==
LOC: HO.CARD 14:02
PROVIDERS: PCP Internal Medicine; Visit Provider Internal Medicine
DX: I35.0 Nonrheumatic aortic (valve) stenosis (principal)
CPT/HCPCS: 93306

== ENCOUNTER → 2022-01-26 13:22 | Outpatient (BNVA) | payer OTHER, SELFPAY | PROVIDERS: PCP Internal Medicine; Referring Provider Internal Medicine; Visit Provider Internal Medicine | DX: I35.0 Nonrheumatic aortic (valve) stenosis (principal); I10 Essential (primary) hypertension; M79.89 Other specified soft tissue disorders; G47.33 Obstructive sleep apnea (adult) (pediatric); Z99.89 Dependence on other enabling machines and devices | CPT/HCPCS: 99212 ==

== ENCOUNTER 2022-03-21 10:02 | Outpatient (REF) | payer OTHER, SELFPAY ==
--- NOTE | ~2022-03-21 | US_ITS ---
EXAMINATION: US VENOUS ULTRASOUND WITH DOPPLER LOWER EXTREMITY, BILATERAL CLINICAL INFORMATION: Bilateral lower extremity edema. COMPARISON: None TECHNIQUE: Ultrasound of the deep veins is performed from the hip to the calf with compression sonography and color and pulse Doppler assessment. Spectral analysis with color-flow imaging is performed. FINDINGS: RIGHT: There is normal venous compression and respiratory variation and augmented flow. The visualized common femoral vein, superficial femoral vein, profunda femoral vein, popliteal vein, and the trifurcation region shows no evidence of deep venous thrombosis. There is no significant popliteal fossa cyst. LEFT: There is normal venous compression and respiratory variation and augmented flow. The visualized common femoral vein, superficial femoral vein, profunda femoral vein, popliteal vein, and the trifurcation region shows no evidence of deep venous thrombosis. There is no significant popliteal fossa cyst. If the patient's symptoms persist, followup ultrasound in 5 days 7 days might be of value to exclude proximal propagation from a non-visualized calf vein. US/US venous duplex LE BI IMPRESSION: No evidence for deep venous thrombosis in the visualized veins of the bilateral lower extremities.
== END 2022-03-21 10:03 | disposition home or self-care (01) ==
LOC: HO.US 10:02
PROVIDERS: PCP Internal Medicine; Visit Provider Internal Medicine Medical Oncology
DX: R60.0 Localized edema (principal); M79.89 Other specified soft tissue disorders
CPT/HCPCS: 93970

== ENCOUNTER 2022-05-30 12:34 | Outpatient (REF) | payer OTHER, SELFPAY ==
--- NOTE | ~2022-05-30 | MM_ITS ---
EXAMINATION: MM SCREENING DIGITAL BREAST TOMOSYNTHESIS, BILATERAL CLINICAL INFORMATION: Screening. Asymptomatic. The lifetime risk of breast cancer based on the Tyrer-Cuzick Model is 3%. COMPARISON: Mammography: 05/28/2021, 05/20/2020, 02/20/2019 TECHNIQUE: Digital breast tomosynthesis is performed in both the craniocaudal and mediolateral oblique views along with computer-aided detection (CAD). Synthesized 2D images are generated from the tomosynthesis. FINDINGS: The breasts are heterogeneously dense, which may obscure small masses (ACR BI-RADS breast composition Category c). Breast tissue composition borders on average fibroglandular. Parenchymal pattern is similar to prior studies. There is no developing density or architectural abnormality. There is no significant mass. No abnormal calcifications. The axilla and skin contours are unremarkable. No significant changes from prior studies. MM/MM tomosynthesis screening BI IMPRESSION: No mammographic evidence of malignancy. ASSESSMENT: BI-RADS 1: Negative RECOMMENDATION: Routine annual mammography screening. This patient's information was entered into a reminder system with a target due date for their next mammogram.
== END 2022-05-30 12:35 | disposition home or self-care (01) ==
LOC: HO.MAMMO 12:34
PROVIDERS: PCP Internal Medicine; Visit Provider Internal Medicine
DX: Z12.31 Encounter for screening mammogram for malignant neoplasm of breast (principal)
CPT/HCPCS: 77063; 77067

== ENCOUNTER → 2022-07-06 13:50 | Outpatient (REF) | payer OTHER, SELFPAY ==
--- NOTE | 2022-07-06 13:53 | CA_ITS ---
Transthoracic Echocardiogram Patient (Last, First, Middle): Alejandra Quinones, Gender: Female Date of : 1940 Age: 81 Procedure Date: 07/06/2022 Procedure Type: Transthoracic Echocardiogram Location: OP Height: 139.7 cm Weight: 81.65 kg BSA: 1.68 m2 Heart Rate: bpm BP: 145 / 60 mmHg Linter Saw Sharpener: TO Referring MD: Joni Mercer MD Anesthesia Assistant: Fercho Castanon MD Symptoms: I35.0 - Nonrheumatic aortic (valve) stenosis Study Quality: Fair ECG Rhythm: Sinus Conclusions: - 1. Hyperdynamic LV systolic function with mild LVH with moderate asymmetric septal hypertrophy with impaired relaxation filling pattern elevated filling pressures 2. Moderate to severe aortic stenosis 3. Mild aortic regurgitation 4. Normal RV systolic pressure 5. No gross pericardial effusion Findings Left Ventricle Normal left ventricular cavity size. There is mildly increased left ventricular wall thickness. The left ventricular systolic function is hyperdynamic. Spectral Doppler is indicative of an impaired relaxation filling pattern. Elevated filling pressures. There is moderate septal asymmetric hypertrophy. obstructive physiology cannot be entirely ruled out on this study Right Ventricle Normal right ventricular cavity size and systolic function. Atria The left atrium is mildly dilated. There is no evidence of interatrial shunt. The right atrium is likely dilated. Aortic Valve There is moderate calcification of the aortic valve. There is moderate to severe aortic valve stenosis. The peak aortic gradient is 71 mmHg.The mean gradient is 42 mmHg. The aortic valve area is 1.14 cm2. There is mild aortic valve regurgitation. Mitral Valve There is mild anterior and posterior mitral leaflet thickening. There is mild mitral annular calcification. There is trace mitral valve regurgitation. There is no mitral valve stenosis. Pulmonic Valve The pulmonic valve was not well visualized. Tricuspid Valve Likely normal tricuspid valve structure and function. There is mild tricuspid valve regurgitation. The right ventricular systolic pressure is normal. The right ventricular systolic pressure is 36 mmHg. There is no evidence of pulmonary hypertension. Great Vessels All visible segments of the aorta are normal in size. The pulmonary artery was not well visualized. Venous The inferior vena cava is normal in size and collapses greater than 50% with inspiration. Pericardium/Pleural There is no evidence of pericardial effusion. Prior Study Comparison Changes noted compared to prior study dated: 01/12/2022. aortic stenosis moderately severe. Subaortic obstruction due to asymmetric septal hypertrophy cannot be entirely ruled out. Measurements 2D Linear Measurements IVSd: 1.47 0.6-0.9/0.6-1.0 cm LVIDd: 3.11 3.9-5.3/4.2-5.9 cm LVIDd Index: 1.85 2.4-3.2/2.2-3.1 cm/m2 LVIDs: 1.51 2.0-3.6 cm LVPWd: 1.24 0.7-1.1 cm LA Diam: 3.50 2.7-3.8/3.0-4.0 cm LAIDs Index: 2.08 1.5-2.3 cm/m2 LV Mass: 173.74 67-162/88-224 g LV Mass Index: 103.42 43-95/49-115 g/m2 LVOT Diam: 2.00 3.0+(-)1.3 cm 2D Systolic Function EF 4C: 69.30 >55% EF 2C: 70.50 >55% EF BiP: 71.20 >55% Mitral Valve MV VTI: 0.33 MV Pk Johnie: 1.58 MV Mn Johnie: 1.04 MV Pk Grad: 10.00 MV Mn Grad: 5.00 MV Pk E: 1.04 MV PK A: 1.45 MV Decel Time: 154.00 E/A: 0.70 E'Lateral: 5.87 E'Medial: 6.64 E/E' Med: 15.70 E/E' Lat: 17.70 PHT: 45.00 MVA PHT: 4.89 MVA Continuity: 2.95 Decel [place]: 6.74 Aortic Valve AoV Pk Johnie: 4.21 AoV Mn Johnie: 3.07 AoV VTI: 0.86 AoV Pk Grad: 71.00 Aov Mn Grad: 42.00 GABRIELA Cont.VTI: 1.14 AI Pk Johnie: 3.98 AI [place]: 3.33 LVOT LVOT Pk Johnie: 1.69 LVOT Mn Johnie: 1.12 LVOT VTI: 0.31 LVOT Pk Grad: 11.00 LVOT Mn Grad: 6.00 LVOT Diam: 2.00 LVOT Area: 3.14 Diastolic Function MV Pk E: 1.04 MV Pk A: 1.45 E/A: 0.70 E'Medial: 6.64 E/E' Med: 15.70 E' Laterial: 5.87 E/E' Lat: 17.70 Right Ventricle TAPSE (mm): 24.00 TVS' Johnie: 13.40 Tricuspid Valve TR Pk Johnie: 2.89 TR Pk Grad: 33.00 RA Press: 3.00 RVSP: 36.00 Great Vessels Aorta Sinus of Valsalva: 2.84 2.0-3.[address] [place]: 2.38 1.7-3.4 cm Ao Asc: 3.50 2.1-3.4 cm Updated in Other Vendor System with Status of Final Fercho Castanon MD electronically signed on 07/08/2022 6:19:43 PM with status of Final
== END ==
LOC: HO.CARD 13:50
PROVIDERS: PCP Internal Medicine; Visit Provider Internal Medicine
DX: I35.0 Nonrheumatic aortic (valve) stenosis (principal)
CPT/HCPCS: 93306

== ENCOUNTER 2022-07-27 12:31 | Outpatient (REF) | payer OTHER, SELFPAY ==
[2022-07-27 12:45] LABS: MANUAL DIFF FLAG NO
[2022-07-27 13:56] LABS: Basophils Absolute Auto 0.1 X10*3/uL (0.0-0.2); Basophils Percent Auto 1.2 % (0-2); Eosinophils Absolute Auto 0.1 X10*3/uL (0.0-0.4); Eosinophils Percent Auto 1.7 % (0-4); Hematocrit 39.4 % (37.0-47.0); Hemoglobin 12.1 g/dl (12.0-16.0); Imm Gran Abs Auto 0.01 X10*3/uL (0.00-0.03); Imm Gran Pct Auto 0.2 % (0.0-0.4); Lymphocytes Absolute Auto 1.7 X10*3/uL (1.2-4.9); Lymphocytes Percent Auto 40.5 % (20-40); Mean Corpuscular HGB Conc 30.7 g/dl (31.0-35.0); Mean Corpuscular Hemoglobin 25.6 pg (27.0-33.0); Mean Corpuscular Volume 83.3 fL (80.0-98.0); Mean Platelet Volume 10.2 fL (9.4-12.3); Monocytes Absolute Auto 0.5 X10*3/uL (0.1-1.2); Monocytes Percent Auto 11.1 % (2-11); Neutrophils Absolute Auto 1.9 x10*3/uL (2.0-8.3); Neutrophils Percent Auto 45.3 % (45-73); Platelet Count 309 X10*3/uL (160-400); Red Blood Count 4.73 X10*6/uL (4.20-5.50); Red Cell Distribution Width 14.8 % (11.0-16.0); White Blood Count 4.2 X10*3/uL (4.8-10.8)
[2022-07-27 14:48] LABS: Alanine Aminotransferase 16 U/L (0-31); Alkaline Phosphatase 141 U/L (39-117); Anion Gap 15 (12-20); Aspartate Amino Transferase 21 U/L (5-31); Bilirubin Total 0.7 mg/dL (0.0-1.0); Blood Urea Nitrogen 17 mg/dL (9-16); Calcium 9.5 mg/dL (8.4-10.2); Carbon Dioxide 35 mmol/L (22-29); Chloride 99 mmol/L (96-108); Cholesterol 154 mg/dL; Estimated Glomerular Filt Rate 53; Glucose Fasting 118 mg/dL (60-99); HDL Cholesterol 66 mg/dL; LDL Cholesterol Calculated 74 mg/dl; Potassium 3.6 mmol/L (3.3-5.1); Sodium 145 mmol/L (135-145); Total Protein 7.8 g/dL (6.5-8.0); Triglycerides 73 mg/dL; Vitamin D 25-OH Total 41.2 ng/mL (>30)
[2022-07-27 14:53] LABS: Vitamin B12 210 pg/mL (200-900)
[2022-07-27 16:05] LABS: Folate 18.9 ng/mL (> or = 4.0)
== END 2022-07-27 12:32 | disposition home or self-care (01) ==
LOC: HO.LAB 12:31
PROVIDERS: PCP Internal Medicine; Visit Provider Internal Medicine
DX: I35.0 Nonrheumatic aortic (valve) stenosis (principal); E78.00 Pure hypercholesterolemia, unspecified; E78.5 Hyperlipidemia, unspecified; D51.0 Vitamin B12 deficiency anemia due to intrinsic factor deficiency; D64.9 Anemia, unspecified; E55.9 Vitamin D deficiency, unspecified; I10 Essential (primary) hypertension; G47.33 Obstructive sleep apnea (adult) (pediatric); Z99.89 Dependence on other enabling machines and devices; M79.89 Other specified soft tissue disorders
CPT/HCPCS: 36415; 80053; 80061; 82306; 82607; 82746; 85025; 99212

== ENCOUNTER → 2022-09-07 10:38 | Outpatient (BNVA) | payer OTHER, SELFPAY | PROVIDERS: PCP Internal Medicine; Visit Provider Surgery Vascular Surgery | DX: I83.12 Varicose veins of left lower extremity with inflammation (principal); I89.0 Lymphedema, not elsewhere classified | CPT/HCPCS: 99202 ==

== ENCOUNTER 2022-09-16 10:14 | Outpatient (REF) | payer OTHER, SELFPAY ==
--- NOTE | ~2022-09-16 | US_ITS ---
EXAMINATION: US LOWER EXTREMITY VENOUS (REFLUX EXAM), BILATERAL CLINICAL INDICATION: Varicose veins COMPARISON: None. TECHNIQUE: Color flow triplex imaging and compression Doppler was performed to evaluate both the deep and the superficial systems bilaterally. To evaluate the superficial system, the examination was performed in the upright position. Color-flow Doppler ultrasound and compression ultrasound were utilized. In addition, maneuvers were utilized to demonstrate reflux. FINDINGS: 1. DEEP VENOUS ULTRASOUND OF THE RIGHT LOWER EXTREMITY: Common Femoral Vein: Compressible, normal respiratory variation and augmented flow. Femoral Vein: Compressible, normal color flow and augmentation. Popliteal Vein: Compressible, normal augmentation. Deep Reflux: There is no evidence of reflux in the deep system in either the common femoral vein or the popliteal vein. There is no evidence of a Calvert's cyst. 2. SUPERFICIAL ULTRASOUND WITH DOPPLER OF RIGHT LOWER EXTREMITY: GREAT SAPHENOUS VEIN: Saphenofemoral Junction: 0.5 cm; Reflux: 0 ms Proximal Thigh: 0.7 cm; Reflux: 0 ms Mid Thigh: 0.3 cm; Reflux: 2468 ms Above Knee: 0.4 cm; Reflux: 1992 ms At Knee: 0.3 cm; Reflux: 2448 ms Below Knee: 0.2 cm; Reflux: 2228 ms Mid Calf: 0.2 cm; Reflux: 0 ms Ankle: 0.2 cm; Reflux: 0 ms DUPLICATED MEDIAL GREAT SAPHENOUS VEIN: Diameter: None Imaged Reflux: NA DUPLICATED LATERAL GREAT SAPHENOUS VEIN: Proximal: 0.3 cm; Reflux: 0 ms Distal: 0.3 cm; Reflux: 0 ms SMALL SAPHENOUS VEIN: Proximal: 0.2 cm; Reflux: 0 ms Distal: 0.2 cm; Reflux: 0 ms VEIN OF GIACOMINI: None Imaged. PERFORATORS: Location: Proximal thigh Size: 0.2 cm Reflux: NA Location: 25 cm Size: 0.3 cm Reflux: NA VARICOSITIES: Location: Proximal thigh Size: 0.3 cm Reflux: NA 3. DEEP VENOUS ULTRASOUND OF THE LEFT LOWER EXTREMITY: Common Femoral Vein: Compressible, normal respiratory variation and augmented flow. Femoral Vein: Compressible, normal color flow and augmentation. Popliteal Vein: Compressible, normal augmentation. Deep Reflux: There is no evidence of reflux in the deep system in either the common femoral vein or the popliteal vein. There is no evidence of a Calvert's cyst. 4. SUPERFICIAL ULTRASOUND WITH DOPPLER OF LEFT LOWER EXTREMITY: GREAT SAPHENOUS VEIN: Saphenofemoral Junction: 0.5 cm; Reflux: 0 ms Proximal Thigh: 0.6 cm; Reflux: 0 ms Mid Thigh: 0.2 cm; Reflux: 0 ms Above Knee: 0.2 cm; Reflux: 0 ms Not visualized below the knee DUPLICATED MEDIAL GREAT SAPHENOUS VEIN: Diameter: None Imaged Reflux: NA DUPLICATED LATERAL GREAT SAPHENOUS VEIN: Proximal: 0.3 cm; Reflux: 0 ms Distal: 0.2 cm; Reflux: 0 ms SMALL SAPHENOUS VEIN: Proximal: 0.4 cm; Reflux: 0 ms Distal: 0.1 cm; Reflux: 1796 ms VEIN OF GIACOMINI: None Imaged. PERFORATORS: Location: Proximal calf Size: 0.2 cm Reflux: NA Location: 24 cm Size: 0.2 cm Reflux: 2864ms VARICOSITIES: Location: Proximal thigh Size: 0.3 cm Reflux: NA Location: Proximal thigh, GSV bifurcation extending into the calf Size: 0.4 cm Reflux: 2308ms US/US venous duplex LE BI IMPRESSION: 1. Right great saphenous venous insufficiency. 2. Left small saphenous venous insufficiency. 3. Bilateral lower extremity varicosities. 4. No DVT.
== END 2022-09-16 10:15 | disposition home or self-care (01) ==
LOC: HO.US 10:14
PROVIDERS: Visit Provider Surgery Vascular Surgery
DX: I83.893 Varicose veins of bilateral lower extremities with other complications (principal)
CPT/HCPCS: 93970

== ENCOUNTER → 2023-01-02 10:06 | Outpatient (REF) | payer OTHER, SELFPAY ==
--- NOTE | 2023-01-02 10:08 | CA_ITS ---
Transthoracic Echocardiogram Patient (Last, First, Middle): Alejandra Quinones, Gender: Female Date of : 1940 Age: 82 Procedure Date: 01/02/2023 Procedure Type: Transthoracic Echocardiogram Location: OP Height: 127. cm Weight: 81.65 kg BSA: 1.56 m2 Heart Rate: bpm BP: 118 / 68 mmHg Bus Aide: Referring MD: Joni Mercer MD Symptoms: I35.0 - Nonrheumatic aortic (valve) stenosis Study Quality: Fair ECG Rhythm: Sinus Conclusions: - The left ventricular systolic function is hyperdynamic. The visually estimated ejection fraction is >70%. - The left atrium is severely dilated. - There is moderate to severe aortic valve stenosis. Findings Left Ventricle Normal left ventricular cavity size. There is moderately increased left ventricular wall thickness. The left ventricular systolic function is hyperdynamic. The visually estimated ejection fraction is >70%. There is no evidence of regional wall motion abnormalities. Evidence suggests grade I (mild) diastolic dysfunction. Right Ventricle Normal right ventricular cavity size and systolic function. Atria The left atrium is severely dilated. The right atrium is normal in size. Aortic Valve There is moderate calcification of the aortic valve. There is moderate to severe aortic valve stenosis. The peak aortic velocity is 4.15 m/s with a calculated peak gradient of 69 mmHg. The mean gradient is 43 mmHg. The aortic valve area is 1.27 cm2. There is mild aortic valve regurgitation. Dimensionless index 0.4. Mitral Valve There is mild mitral annular calcification. There is trace mitral valve regurgitation. There is no mitral valve stenosis. Pulmonic Valve The pulmonic valve is likely normal. Tricuspid Valve There is mild tricuspid valve regurgitation. There is no evidence of pulmonary hypertension. Great Vessels The asc aorta is normal in size. Venous The inferior vena cava is normal in size and collapses greater than 50% with inspiration. Pericardium/Pleural There is no evidence of pericardial effusion. Prior Study Comparison No significant change compared to prior study dated: 07/06/2022. Measurements 2D Linear Measurements IVSd: 1.27 0.6-0.9/0.6-1.0 cm LVIDd: 3.40 3.9-5.3/4.2-5.9 cm LVIDd Index: 2.18 2.4-3.2/2.2-3.1 cm/m2 LVIDs: 1.98 2.0-3.6 cm LVPWd: 1.30 0.7-1.1 cm Ao Root: 3.00 2.1-3.5 cm LA Diam: 3.60 2.7-3.8/3.0-4.0 cm LAIDs Index: 2.31 1.5-2.3 cm/m2 LV Mass: 180.41 67-162/88-224 g LV Mass Index: 115.65 43-95/49-115 g/m2 LVOT Diam: 2.00 3.0+(-)1.3 cm 2D Systolic Function EF 4C: 62.30 >55% EF 2C: 57.10 >55% EF BiP: 60.60 >55% Mitral Valve MV Pk E: 0.84 MV PK A: 1.40 MV Decel Time: 140.00 E/A: 0.60 E'Lateral: 7.40 E'Medial: 4.68 E/E' Med: 17.90 E/E' Lat: 11.40 PHT: 41.00 MVA PHT: 5.37 Decel [place]: 5.99 Aortic Valve AoV Pk Johnie: 4.15 AoV Mn Johnie: 3.10 AoV VTI: 0.90 AoV Pk Grad: 69.00 Aov Mn Grad: 43.00 GABRIELA Cont.VTI: 1.27 AI Pk Johnie: 4.16 AI [place]: 3.30 LVOT LVOT Pk Johnie: 1.65 LVOT Mn Johnie: 1.16 LVOT VTI: 0.36 LVOT Pk Grad: 11.00 LVOT Mn Grad: 6.00 LVOT Diam: 2.00 LVOT Area: 3.14 Diastolic Function MV Pk E: 0.84 MV Pk A: 1.40 E/A: 0.60 E'Medial: 4.68 E/E' Med: 17.90 E' Laterial: 7.40 E/E' Lat: 11.40 Right Ventricle TAPSE (mm): 28.00 TVS' Johnie: 18.00 Tricuspid Valve TR Pk Johnie: 2.71 TR Pk Grad: 29.00 RA Press: 3.00 RVSP: 32.00 Great Vessels Aorta Ao Root-2D: 3.00 2.0-3.7 cm Ao Asc: 3.50 2.1-3.4 cm Pulmonary Valve PV Pk Johnie: 1.57 Peak PV Grad: 10.00 Updated in Other Vendor System with Status of Final Joni Mercer MD electronically signed on 01/02/2023 12:09:55 PM with status of Final
== END ==
LOC: HO.CARD 10:06
PROVIDERS: PCP Internal Medicine; Visit Provider Internal Medicine
DX: I35.0 Nonrheumatic aortic (valve) stenosis (principal)
CPT/HCPCS: 93306

== ENCOUNTER → 2023-01-25 13:39 | Outpatient (BNVA) | payer OTHER, SELFPAY | PROVIDERS: PCP Internal Medicine; Referring Provider Internal Medicine; Visit Provider Internal Medicine | DX: I35.0 Nonrheumatic aortic (valve) stenosis (principal); I10 Essential (primary) hypertension; G47.33 Obstructive sleep apnea (adult) (pediatric); Z99.89 Dependence on other enabling machines and devices | CPT/HCPCS: 93005; 99212 ==

== ENCOUNTER 2023-04-18 08:32 | Outpatient (REF) | payer OTHER, SELFPAY ==
[2023-04-18 11:18] LABS: Alanine Aminotransferase 9 U/L (0-31); Albumin Level 3.5 g/dL (3.5-5.0); Alkaline Phosphatase 68 U/L (39-117); Anion Gap 12 (12-20); Aspartate Amino Transferase 17 U/L (5-31); Bilirubin Total 0.3 mg/dL (0.0-1.0); Blood Urea Nitrogen 12 mg/dL (9-16); Calcium 9.1 mg/dL (8.4-10.2); Carbon Dioxide 28 mmol/L (22-29); Chloride 107 mmol/L (96-108); Cholesterol 220 mg/dL (<200); Estimated Glomerular Filt Rate > 60; Glucose Fasting 99 mg/dL (60-99); HDL Cholesterol 64 mg/dL (>40); LDL Cholesterol Calculated 137 mg/dL (<100); Potassium 3.7 mmol/L (3.3-5.1); Sodium 143 mmol/L (135-145); Triglycerides 98 mg/dL (<150); Vitamin D 25-OH Total 37.1 ng/mL (>30)
[2023-04-18 11:38] LABS: Folate 10.1 ng/mL (> or = 4.0); Vitamin B12 231 pg/mL (200-900)
== END 2023-04-18 08:33 | disposition home or self-care (01) ==
LOC: HO.LAB 08:32
PROVIDERS: PCP Internal Medicine; Visit Provider Internal Medicine
DX: E78.5 Hyperlipidemia, unspecified (principal); E53.8 Deficiency of other specified B group vitamins; E55.9 Vitamin D deficiency, unspecified; I35.0 Nonrheumatic aortic (valve) stenosis
CPT/HCPCS: 36415; 80053; 80061; 82306; 82607; 82746

== ENCOUNTER 2023-04-24 10:42 | Outpatient (AMB) | payer OTHER, SELFPAY ==
--- NOTE | 2023-04-24 10:44 | MHC.PC.OV ---
Vital Signs 04/24/23 10:48 Height 5 ft Weight 188 lb BMI 36.7 BP 136/70 Blood Pressure Location Lt brachial Position Sitting Intake Visit Reasons: bp Intake Note: Patient here for a follow up BP Scrap Dealer Required: No Accompanied by: PHYSICIAN COMPENSATION ANALYST Allergies No Known Allergies Allergy (Verified 04/24/23 10:54) Medication List - Last Reconciled 04/24/23 by Halle Bonilla MD acetaminophen ER (Mapap Arthritis Pain) 650 mg PO Q8H 30 days [adult pullups As directed] alprazolam 0.5 mg PO TID PRN 30 days amlodipine 10 mg PO DAILY aspirin 81 mg PO DAILY 90 days [bedpads As directed] blood pressure monitor As directed calcium carbonate-vitamin D3 600 mg-10 mcg (400 unit) 1 tab PO DAILY 90 days cholecalciferol (vitamin D3) 50 mcg PO DAILY 90 days [compression stochings As directed] cyanocobalamin (vitamin B-12) 1,000 mcg sublingual DAILY 90 days disposable gloves As directed escitalopram oxalate (Lexapro) 20 mg PO QAM ferrous sulfate 325 mg PO DAILY 90 days folic acid 1 mg PO DAILY furosemide 20 mg PO DAILY PRN 90 days gabapentin 100 mg PO BEDTIME 90 days hydralazine 10 mg PO TID 90 days incontinence pad, liner, disp (Prevail Panty Liner pads) As directed meclizine 25 mg PO TID PRN 30 days metoprolol succinate ER (Toprol XL) 25 mg PO DAILY mirtazapine (Remeron) 7.5 mg PO BEDTIME omeprazole 20 mg PO DAILY 90 days [wipes As directed] Tobacco use date assessed: 12/21/22 Fall risk assessment: No Falls in past year Last assessed Fall Risk: 04/24/23 Dental Screening Dental Screen Date: 04/24/23 Did you have a dental visit in the last 12 months?: No Did you have a dental problem in the last 6 months where you did not have access to dental care?: No Was dental information given to patient?: Patient has dentist HPI HPI Comments History of Present Illness Details This is an 82-year-old female with hypertension, pure hypercholesterolemia, mild recurrent major depression and GERD that comes accompanied by PHYSICIAN COMPENSATION ANALYST for follow-up on her conditions. Blood pressure stable. Cholesterol elevated and I will add a statin. Depression stable with escitalopram and GERD stable with medications. No chest pain or shortness of breath. Has some mild cognitive impairment and will benefit from having 2 PHYSICIAN COMPENSATION ANALYST hours per night from Monday through Monday. [facility] Medical History (Updated 04/24/23 @ 11:01 by Halle Bonilla MD) Mild recurrent major depression Right shoulder pain Non-rheumatic aortic stenosis Right ankle pain Left hip pain Bicytopenia Polyuria Long-term use of aspirin therapy Aortic valve stenosis CHRIS on CPAP Hypovitaminosis D GERD (gastroesophageal reflux disease) Depression with anxiety Pure hypercholesterolemia Osteopenia Essential hypertension Pernicious anemia Surgical History History of esophagogastroduodenoscopy (EGD) Hx of colonoscopy History of bilateral cataract extraction History of breast biopsy History of hysterectomy History of cholecystectomy Family History Father No problems noted. Mother Chronic mental illness CVD (cardiovascular disease) Hypertension Family/Other FH: depression Daughter No problems noted. Daughter No problems noted. Son No problems noted. Son No problems noted. Son No problems noted. Son No problems noted. Maternal Aunt Cancer Social History Household Members: None Housing: Apartment Are you a primary congregational care pastor to a significant other at home: No Do you presently have visiting nurse or other home services: Yes (sail repair person) Alcohol intake: never Patient Tobacco Use Status: Never used Tobacco e-Cigarette/Vaping Use: Never Used Second Hand Smoke Exposure: No service: No Current occupational status: disabled Current occupation: rt hand Cognitive needs: Yes Hearing needs: No Vision needs: Yes Questionnaire Thrive Questionnaire Date Thrive assessed: 12/21/22 ONIEL-7 AMB Questionnaire ONIEL-7 Date ONIEL - 7 assessed: 12/21/22 Source: Developed by Drs. Antonio Medeiros, Cheyenne Colon, Thony Lam and colleagues, with an educational nacho from [employer] Review of Systems Const All systems reviewed & are unremarkable except as noted in HPI and below Eyes Reports no additional complaints, Denies change in vision and Denies other visual disturbances Card Denies chest pain at rest, Denies chest pain with activity, Denies edema, Denies irregular heart rhythm, Denies claudication, Denies dyspnea, Denies dyspnea on exertion, Denies orthopnea, Denies paroxysmal nocturnal dyspnea and Denies slow heart rate Resp Denies cough, Denies dyspnea and Denies dyspnea on exertion GI Denies abdominal pain, Denies change in bowel habits, Denies excessive flatus, Denies nausea and Denies vomiting Denies urinary incontinence, Denies urinary hesitancy and Denies urinary urgency Musc Denies abnormal gait, Denies atrophy, Denies deformity and Denies limited range of motion Skin/Breast Denies bleeding lesions, Denies changing lesions and Denies rash Neuro Denies abnormal gait and Denies lack of coordination Physical exam (Primary Care) Vital Signs: Last Vital Signs BP 136/70 04/24/23 10:48 BMI result Body Mass Index 36.7 Tobacco/Smoking Status: Tobacco use Status Tobacco use date assessed 12/21/22 04/24/23 10:45 Patient Tobacco Use Status Never used Tobacco 04/24/23 10:45 e-Cigarette/Vaping Use Never Used 04/24/23 10:45 Thrive Assessment: Date of Thrive Assessment Date Thrive assessed 12/21/22 04/24/23 10:45 Eyes General: appearance normal, both eyes and all related structures Eyelids: Yes eyelids normal Conjunctivae: conjunctivae normal Neck Neck: Yes normal visual inspection and Yes supple Resp Effort & Inspection: normal respiratory effort Auscultation: clear to auscultation bilaterally Cardio Jugular venous distension: no JVD Rate: regular rate Rhythm: regular rhythm Heart sounds: S1 normal heart sound present and S2 normal heart sound present Extrem General: Yes full ROM Assessment and Plan Assessment & Plan (1) Mild recurrent major depression: Code(s): F33.0 - Major depressive disorder, recurrent, mild Plan: Continue escitalopram. (2) Essential hypertension: Code(s): I10 - Essential (primary) hypertension Plan: Continue amlodipine. Blood pressure goal is equal or less than 130/80. (3) Pure hypercholesterolemia: Code(s): E78.00 - Pure hypercholesterolemia, unspecified Plan: Start statins. (4) GERD (gastroesophageal reflux disease): Code(s): K21.9 - Gastro-esophageal reflux disease without esophagitis Qualifiers: Esophagitis presence: esophagitis presence not specified Qualified Code(s): K21.9 - Gastro-esophageal reflux disease without esophagitis Plan: Continue PPIs Orders: Orders XR knee LT 2V Today M25.562 - Pain in left knee Complete Blood Count Auto Diff 4 Months D64.9 - Anemia, unspecified IRON PROFILE 4 Months D64.9 - Anemia, unspecified Lipid Panel 4 Months E78.5 - Hyperlipidemia, unspecified Comprehensive [place]. Panel Fast 4 Months I89.0 - Lymphedema, not elsewhere classified Referrals Orthopedics Referral M25.562 - Pain in left knee Medications: New rosuvastatin 20 mg PO DAILY 90 days 90 tabs 1RF Refilled calcium carbonate-vitamin D3 600 mg-10 mcg (400 unit) 1 tab PO DAILY 90 days 90 tabs 1RF cholecalciferol (vitamin D3) 50 mcg PO DAILY 90 days 90 caps 3RF Discontinued ferrous sulfate Discontinued Reason: Patient Completed Course 325 mg PO DAILY 90 days 90 tabs 3RF D50.9 - Iron deficiency anemia, unspecified Coding Level of Care Code Est Pt Level 4 (62761) Diagnoses Mild recurrent major depression F33.0 Essential hypertension I10 Pure hypercholesterolemia E78.00 Gastroesophageal reflux disease, unspecified whether esophagitis present K21.9 Esophagitis presence: esophagitis presence not specified Time Spent (min) 23
[2023-04-24 10:48] VITALS: BP 136/70; BMI 36.7
== END 2023-04-24 11:04 | disposition home or self-care (01) ==
PROVIDERS: Visit Provider Internal Medicine
DX: F33.0 Major depressive disorder, recurrent, mild (principal); I10 Essential (primary) hypertension; E78.00 Pure hypercholesterolemia, unspecified; K21.9 Gastro-esophageal reflux disease without esophagitis
CPT/HCPCS: 99214

== ENCOUNTER 2023-06-13 10:04 | Outpatient (REF) | payer OTHER, SELFPAY | END 2023-06-13 10:05 | disposition home or self-care (01) | LOC: HO.HOSX 10:04 | PROVIDERS: Visit Provider Physician Assistant | DX: Z13.89 Encounter for screening for other disorder (principal) ==

== ENCOUNTER 2023-06-15 11:09 | Outpatient (REF) | payer OTHER, SELFPAY | END 2023-06-15 11:10 | disposition home or self-care (01) | LOC: HO.HOSX 11:09 | PROVIDERS: Visit Provider Physician Assistant | DX: Z13.89 Encounter for screening for other disorder (principal) ==

== ENCOUNTER → 2023-07-03 09:46 | Outpatient (REF) | payer OTHER, SELFPAY ==
--- NOTE | 2023-07-03 09:49 | CA_ITS ---
Transthoracic Echocardiogram Patient (Last, First, Middle): Alejandra Quinones, Gender: Female Date of : 1940 Age: 82 Procedure Date: 07/03/2023 Procedure Type: Transthoracic Echocardiogram Location: OP Height: 149.86 cm Weight: 81.65 kg BSA: 1.76 m2 Heart Rate: 73 bpm BP: 140 / 65 mmHg Physician General Practice: [facility] Referring MD: Joni Mercer MD Symptoms: I35.0 - Nonrheumatic aortic (valve) stenosis Study Quality: Fair ECG Rhythm: Sinus Conclusions: - The left ventricular systolic function is hyperdynamic. The calculated ejection fraction is 72% by biplane method. - There is moderately increased left ventricular wall thickness. - There is moderate to severe aortic valve stenosis. High stroke volume can also contribute to gradients. Findings Left Ventricle Normal left ventricular cavity size. There is moderately increased left ventricular wall thickness. The left ventricular systolic function is hyperdynamic. The calculated ejection fraction is 72% by biplane method. There is no evidence of regional wall motion abnormalities. Evidence suggests grade I (mild) diastolic dysfunction. LV peak GLS -17.1%, but likely underestimate. Right Ventricle Normal right ventricular cavity size and systolic function. Atria Both atria are normal in size. Aortic Valve There is moderate calcification of the aortic valve. There is moderate to severe aortic valve stenosis. The peak aortic velocity is 3.96 m/s with a calculated peak gradient of 63 mmHg. The mean gradient is 40 mmHg. The aortic valve area is 0.89 cm2. There is mild aortic valve regurgitation. Dimensionless index 0.4. Mitral Valve There is mild mitral annular calcification. There is trace mitral valve regurgitation. There is no mitral valve stenosis. Pulmonic Valve The pulmonic valve is likely normal. Tricuspid Valve Normal tricuspid valve structure. There is mild tricuspid valve regurgitation. There is no evidence of pulmonary hypertension. Great Vessels The asc aorta is normal in size. Venous The inferior vena cava is normal in size and collapses greater than 50% with inspiration. Pericardium/Pleural There is no evidence of pericardial effusion. Prior Study Comparison No significant change compared to prior study dated: 01/02/2023. Measurements 2D Linear Measurements IVSd: 1.35 0.6-0.9/0.6-1.0 cm LVIDd: 3.32 3.9-5.3/4.2-5.9 cm LVIDd Index: 1.89 2.4-3.2/2.2-3.1 cm/m2 LVIDs: 1.57 2.0-3.6 cm LVPWd: 1.35 0.7-1.1 cm LA Diam: 3.70 2.7-3.8/3.0-4.0 cm LAIDs Index: 2.10 1.5-2.3 cm/m2 LV Mass: 188.84 67-162/88-224 g LV Mass Index: 107.29 43-95/49-115 g/m2 LVOT Diam: 1.80 3.0+(-)1.3 cm 2D Systolic Function EF 4C: 72.70 >55% EF 2C: 71.10 >55% EF BiP: 71.80 >55% Mitral Valve MV Pk E: 0.84 MV PK A: 1.25 MV Decel Time: 373.00 E/A: 0.70 E'Lateral: 3.59 E'Medial: 5.08 E/E' Med: 16.50 E/E' Lat: 23.30 PHT: 109.00 MVA PHT: 2.02 Decel Upton: 2.25 Aortic Valve AoV Pk Johnie: 3.96 AoV Mn Johnie: 3.03 AoV VTI: 0.99 AoV Pk Grad: 63.00 Aov Mn Grad: 40.00 GABRIELA Cont.VTI: 0.89 AI Pk Johnie: 4.37 AI Upton: 3.05 LVOT LVOT Pk Johnie: 1.58 LVOT Mn Johnie: 1.14 LVOT VTI: 0.35 LVOT Pk Grad: 10.00 LVOT Mn Grad: 6.00 LVOT Diam: 1.80 LVOT Area: 2.54 Diastolic Function MV Pk E: 0.84 MV Pk A: 1.25 E/A: 0.70 E'Medial: 5.08 E/E' Med: 16.50 E' Laterial: 3.59 E/E' Lat: 23.30 Right Ventricle TAPSE (mm): 26.90 TVS' Johnie: 14.80 Tricuspid Valve TR Pk Jonhie: 2.29 TR Pk Grad: 21.00 RA Press: 3.00 RVSP: 24.00 Great Vessels Aorta Sinus of Valsalva: 3.20 2.0-3.5 cm Ao Asc: 3.20 2.1-3.4 cm Pulmonary Valve PV Pk Johnie: 1.56 Peak PV Grad: 10.00 Updated in Other Vendor System with Status of Final Joni Mercer MD electronically signed on 07/04/2023 3:54:12 PM with status of Final
== END ==
LOC: HO.CARD 09:46
PROVIDERS: PCP Internal Medicine; Visit Provider Internal Medicine
DX: I35.0 Nonrheumatic aortic (valve) stenosis (principal)
CPT/HCPCS: 93306; 93356

== ENCOUNTER → 2023-07-03 09:49 | Outpatient (BNV) | payer OTHER, SELFPAY | PROVIDERS: PCP Internal Medicine; Visit Provider Internal Medicine | DX: I35.2 Nonrheumatic aortic (valve) stenosis with insufficiency (principal) | CPT/HCPCS: 93306 ==

== ENCOUNTER 2023-07-07 08:55 | Outpatient (REF) | payer OTHER, SELFPAY ==
--- NOTE | ~2023-07-07 | XR_ITS ---
EXAMINATION: 1. STANDING RADIOGRAPHS OF THE BILATERAL KNEES 2. LATERAL AND PATELLAR SUNRISE VIEWS OF THE LEFT KNEE CLINICAL INFORMATION: Pain COMPARISON: None TECHNIQUE: Standing frontal views of both knees in addition to lateral and patellar sunrise views of the left knee. FINDINGS: Left knee: No fracture or dislocation. No suprapatellar joint effusion. Severe narrowing of the medial joint space height. Lateral and patellofemoral joint spaces are relatively well-maintained. There are moderate-sized tricompartmental marginal osteophytes present. No soft tissue swelling the anterior knee. Standing AP view of the right knee: No gross fracture or dislocation. Moderate to severe narrowing of the medial joint space height. Small to moderate-sized osteophytes of the medial and lateral joint compartments. 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 -Moderate degenerative changes of the right knee, also primarily involving the medial compartment.
--- NOTE | ~2023-07-07 | XR_ITS ---
EXAMINATION: 1. STANDING RADIOGRAPHS OF THE BILATERAL KNEES 2. LATERAL AND PATELLAR SUNRISE VIEWS OF THE LEFT KNEE CLINICAL INFORMATION: Pain COMPARISON: None TECHNIQUE: Standing frontal views of both knees in addition to lateral and patellar sunrise views of the left knee. FINDINGS: Left knee: No fracture or dislocation. No suprapatellar joint effusion. Severe narrowing of the medial joint space height. Lateral and patellofemoral joint spaces are relatively well-maintained. There are moderate-sized tricompartmental marginal osteophytes present. No soft tissue swelling the anterior knee. Standing AP view of the right knee: No gross fracture or dislocation. Moderate to severe narrowing of the medial joint space height. Small to moderate-sized osteophytes of the medial and lateral joint compartments. 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 -Moderate degenerative changes of the right knee, also primarily involving the medial compartment.
== END 2023-07-07 08:56 | disposition home or self-care (01) ==
LOC: HO.MAMMO 08:55
PROVIDERS: PCP Internal Medicine; Visit Provider Internal Medicine
DX: M25.562 Pain in left knee (principal); Z12.31 Encounter for screening mammogram for malignant neoplasm of breast
CPT/HCPCS: 73560; 73565; 77063; 77067

== ENCOUNTER → 2023-07-07 09:15 | Outpatient (BNV) | payer OTHER, SELFPAY | PROVIDERS: PCP Internal Medicine; Visit Provider Radiology Diagnostic Radiology | DX: Z12.31 Encounter for screening mammogram for malignant neoplasm of breast (principal) | CPT/HCPCS: 77063; 77067 ==

== ENCOUNTER 2023-08-09 14:08 | Outpatient (AMB) | payer OTHER, SELFPAY ==
[2023-08-09 14:19] VITALS: BP 122/82; PULSE 70; BMI 36.6
--- NOTE | 2023-08-09 14:19 | MHC.OFFVIS ---
Intake Vital Signs 08/09/23 14:19 Height 5 ft Weight 187 lb 6.287 oz BMI 36.6 BP 122/82 Blood Pressure Location Lt brachial Position Sitting Pulse 70 Intake Visit Reasons: follow up echo Intake Note: follow-up after echo feeling good Military Source Operations Specialist Required: Yes Military Source Operations Specialist Name: ROLLER SHOP SUPERVISOR signed form Food Service Steward: Food Service Steward Present Accompanied by: capacity planner Allergies No Known Allergies Allergy (Verified 08/07/23 13:15) Medication List - Last Reconciled 08/09/23 by Moriah Guzman NP acetaminophen ER (Mapap Arthritis Pain) 650 mg PO Q8H 30 days [adult pullups As directed] alprazolam 0.5 mg PO TID PRN 30 days aspirin 81 mg PO DAILY 90 days [bedpads As directed] blood pressure monitor As directed calcium carbonate-vitamin D3 600 mg-10 mcg (400 unit) 1 tab PO DAILY 90 days cholecalciferol (vitamin D3) 50 mcg PO DAILY 90 days [compression stochings As directed] cyanocobalamin (vitamin B-12) 1,000 mcg sublingual DAILY 90 days disposable gloves As directed escitalopram oxalate (Lexapro) 20 mg PO QAM gabapentin 100 mg PO BEDTIME 90 days hydralazine 10 mg PO TID 90 days incontinence pad, liner, disp (Prevail Panty Liner pads) As directed meclizine 25 mg PO TID PRN 30 days metoprolol succinate ER (Toprol XL) 25 mg PO DAILY mirtazapine (Remeron) 7.5 mg PO BEDTIME omeprazole 20 mg PO DAILY 90 days rosuvastatin 20 mg PO DAILY 90 days [wipes As directed] HPI HPI Comments History of Present Illness Details 83-year-old female presents today after echocardiogram. She reports she is feeling well and denies any shortness of breath, chest pain, syncope, or palpitations. She periodically checks her blood pressure at home and states it has been good. Interpretation is performed by her friend/ROLLER SHOP SUPERVISOR - appropriate form signed. She has chronic leg swelling and states it is at her normal level and has not changed. She reports taking her medications without any concerns. [facility] Medical History Mild recurrent major depression Right shoulder pain Non-rheumatic aortic stenosis Right ankle pain Left hip pain Bicytopenia Polyuria Long-term use of aspirin therapy Aortic valve stenosis CHRIS on CPAP Hypovitaminosis D GERD (gastroesophageal reflux disease) Depression with anxiety Pure hypercholesterolemia Osteopenia Essential hypertension Pernicious anemia Surgical History History of esophagogastroduodenoscopy (EGD) Hx of colonoscopy History of bilateral cataract extraction History of breast biopsy History of hysterectomy History of cholecystectomy Family History Father No problems noted. Mother Chronic mental illness CVD (cardiovascular disease) Hypertension Family/Other FH: depression Daughter No problems noted. Daughter No problems noted. Son No problems noted. Son No problems noted. Son No problems noted. Son No problems noted. 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 occupation: rt hand Cognitive needs: Yes Hearing needs: No Vision needs: Yes Review of Systems Const Denies chills, Denies fatigue, Denies fever(s), Denies frequent falls, Denies weakness, Denies weight gain and Denies weight loss ENT Denies dizziness Card Denies chest pain, Denies leg edema, Denies lightheadedness, Denies palpitations, Denies dyspnea, Denies dyspnea on exertion, Denies orthopnea and Denies other (loss of consciousness) Resp Denies cough, Denies dyspnea and Denies dyspnea on exertion GI Denies hematochezia and Denies change in stool character Musc Denies abnormal gait, Denies muscle weakness, Denies numbness, Denies radiating pain into limb and Denies tingling Neuro Denies abnormal gait, Denies dizziness, Denies frequent falls, Denies numbness, Denies tingling and Denies weakness Endo Denies fatigue and Denies palpitations Physical Exam Vital Signs: Last Vital Signs Pulse 70 08/09/23 14:19 BP 122/82 08/09/23 14:19 BMI result Body Mass Index 36.6 Const General: healthy appearing and no acute distress Orientation/consciousness: patient oriented x3 HEENT Head: Yes normal to inspection Eyes General: appearance normal, both eyes and all related structures Neck Neck: Yes normal visual inspection Chest Chest palpation & inspection: normal inspection of the chest Resp Effort & Inspection: normal respiratory effort Auscultation: clear to auscultation bilaterally Cardio Jugular venous distension: no JVD Palpation: normal PMI Rate: regular rate Rhythm: regular rhythm Heart sounds: S1 normal heart sound present, S2 normal heart sound present, no click, no gallops, no murmurs and no rubs GI Inspection: Yes normal to inspection Palpation (GI): Soft to palpation Skin General skin exam: no rashes or lesions noted Neuro General: patient oriented x3 Extrem General: Yes normal to inspection Psych Appearance: grossly normal Results Reviewed Results Reviewed: Echocardiogram 07/03/2023 Conclusions: - The left ventricular systolic function is hyperdynamic. The calculated ejection fraction is 72% by biplane method. - There is moderately increased left ventricular wall thickness. - There is moderate to severe aortic valve stenosis. High stroke volume can also contribute to gradients. No significant changes Assessment & Plan Assessment & Plan (1) Essential hypertension: Code(s): I10 - Essential (primary) hypertension (2) Aortic valve stenosis: Code(s): I35.0 - Nonrheumatic aortic (valve) stenosis Qualifiers: Cardiac valve disease etiology: nonrheumatic Qualified Code(s): I35.0 - Nonrheumatic aortic (valve) stenosis Plan Discussed heart healthy diet. Signed of worsening aortic stenosis reviewed and instructed to call if any of these present. ED care if needed. Continue medications. Keep log of blood pressures and bring to next appointment for review. Coding Level of Care Code Est Pt Level 3 (94579) Diagnoses Essential hypertension I10 Nonrheumatic aortic valve stenosis I35.0 Cardiac valve disease etiology: nonrheumatic
== END 2023-08-09 14:45 | disposition home or self-care (01) ==
PROVIDERS: PCP Internal Medicine; Visit Provider Nurse Practitioner
DX: I10 Essential (primary) hypertension (principal); I35.0 Nonrheumatic aortic (valve) stenosis
CPT/HCPCS: 99213

== ENCOUNTER → 2023-08-09 14:08 | Outpatient (BNVA) | payer OTHER, SELFPAY | PROVIDERS: PCP Internal Medicine; Visit Provider Nurse Practitioner | DX: I10 Essential (primary) hypertension (principal); I35.0 Nonrheumatic aortic (valve) stenosis | CPT/HCPCS: 99212 ==

== ENCOUNTER 2023-08-21 14:39 | Outpatient (AMB) | payer OTHER, SELFPAY ==
--- NOTE | 2023-08-21 15:26 | A.OFFPC_ITS ---
Vital Signs 08/21/23 15:28 Height 5 ft Weight 190 lb BMI 37.1 BP 112/60 Blood Pressure Location Lt brachial Position Sitting Intake Visit Reasons: bp Intake Note: Patient here for a follow up BP Manager Lighting Required: No Accompanied by: HEMSTITCHING MACHINE OPERATOR Allergies No Known Allergies Allergy (Verified 08/21/23 15:59) Medication List - Last Reconciled 08/21/23 by Halle Bonilla MD acetaminophen ER (Mapap Arthritis Pain) 650 mg PO Q8H 30 days [adult pullups As directed] alprazolam 0.5 mg PO TID PRN 30 days aspirin 81 mg PO DAILY 90 days [bedpads As directed] blood pressure monitor As directed calcium carbonate-vitamin D3 600 mg-10 mcg (400 unit) 1 tab PO DAILY 90 days cholecalciferol (vitamin D3) 50 mcg PO DAILY 90 days [compression stochings As directed] disposable gloves As directed escitalopram oxalate (Lexapro) 20 mg PO QAM gabapentin 100 mg PO BEDTIME 90 days hydralazine 10 mg PO TID 90 days incontinence pad, liner, disp (Prevail Panty Liner pads) As directed meclizine 25 mg PO TID PRN 30 days metoprolol succinate ER (Toprol XL) 25 mg PO DAILY mirtazapine (Remeron) 7.5 mg PO BEDTIME omeprazole 20 mg PO DAILY 90 days rosuvastatin 20 mg PO DAILY 90 days [wipes As directed] Tobacco use date assessed: 08/21/23 Fall risk assessment: No Falls in past year Last assessed Fall Risk: 08/21/23 Dental Screening Dental Screen Date: 08/21/23 Did you have a dental visit in the last 12 months?: No Did you have a dental problem in the last 6 months where you did not have access to dental care?: No Was dental information given to patient?: Patient has dentist HPI HPI Comments History of Present Illness Details This is an 83-year-old female with hypertension, pure hypercholesterolemia, GERD and mild recurrent major depression that comes accompanied by HEMSTITCHING MACHINE OPERATOR for follow-up on her conditions. Blood pressure well controlled. Last cholesterol was stable. GERD stable with medications. Depression has improved with escitalopram. No chest pain or shortness of breath. Complains of bilateral knee pain and x-ray shows severe arthritis and she is aware. Will be referred to Ortho. [facility] Medical History (Updated 08/21/23 @ 16:06 by Halle Bonilla MD) Mild recurrent major depression Right shoulder pain Non-rheumatic aortic stenosis Right ankle pain Left hip pain Bicytopenia Polyuria Long-term use of aspirin therapy Aortic valve stenosis CHRIS on CPAP Hypovitaminosis D GERD (gastroesophageal reflux disease) Depression with anxiety Pure hypercholesterolemia Osteopenia Essential hypertension Pernicious anemia Surgical History History of esophagogastroduodenoscopy (EGD) Hx of colonoscopy History of bilateral cataract extraction History of breast biopsy History of hysterectomy History of cholecystectomy Family History Father No problems noted. Mother Chronic mental illness CVD (cardiovascular disease) Hypertension Family/Other FH: depression Daughter No problems noted. Daughter No problems noted. Son No problems noted. Son No problems noted. Son No problems noted. Son No problems noted. 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 1. Little interest or pleasure in doing things: not at all 2. Feeling down, depressed, or hopeless: not at all 3. Trouble falling or staying asleep, or sleeping too much: not at all 4. Feeling tired or having little energy: not at all 5. Poor appetite or overeating: not at all 6. Feeling bad about yourself - or that you are a failure or have let yourself or your family down: not at all 7. Trouble concentrating on things, such as reading the newspaper or watching television: not at all 8. Moving or speaking so slowly that other people could have noticed. Or the opposite - being so fidgety or restless that you have been moving around a lot more than usual: not at all 9. Thoughts that you would be better off or of hurting yourself in some way: not at all Total score: 0 Depression Screening Interpretation: Negative Depression Screening Done: Yes 37624 - PHQ-9 Billing: Yes Source: Developed by Drs. Antonio Medeiros, Cheyenne Colon, Thony Lam and colleagues, with an educational nacho from [employer]. Thrive Questionnaire Date Thrive assessed: 08/21/23 I am a: Patient What is your living situation today?: I have a steady place to live Within the past 12 months, did the food you bought not last and you didn't have the money to get more?: Never true Within the past 12 months, did you worry whether your food would run out before you got money to buy more?: Never true Do you have trouble paying for medicines?: No Do you have trouble getting transportation to medical appointments?: No Do you have trouble paying your heating and electricity bill?: No Do you have trouble taking care of your child, family member or friend?: No Do you have trouble with day-to-day activities such as bathing, preparing meals, shopping, managing finances, etc.?: No Are you currently unemployed and looking for a job?: No Are you interested in more education?: No Please select the resources that you would like help with: None Currently or been in a relationship where the following occur: no concerns reported THRIVE Score: 0 AUDIT C Alcohol Use Questionnaire (AUDIT-C) 1. How often do you have a drink containing alcohol?: Never Total Score: 0 ONIEL-7 AMB Questionnaire ONIEL-7 Date ONIEL - 7 assessed: 08/21/23 Feeling nervous, anxious, or on edge: 0 = Not at all Not being able to stop or control worryin = Not at all Worrying too much about different things: 0 = Not at all Trouble relaxin = Not at all Being so restless that it is hard to sit still: 0 = Not at all Becoming easily annoyed or irritable: 0 = Not at all Feeling afraid as if something awful might happen: 0 = Not at all Total ONIEL-7 score (0-4 normal; 5-9 mild; 10-14 moderate; 15-21 severe): 0 Source: Developed by Drs. Antonio Medeiros, Cheyenne Colon, Thony Lam and colleagues, with an educational nacho from [employer]. ONIEL-7 Assessment Billing NOIEL-7 Assessment Tool: ONIEL-7 Assessment 69341 Review of Systems Const All systems reviewed & are unremarkable except as noted in HPI and below Eyes Reports no additional complaints, Denies change in vision and Denies other visual disturbances Card Denies chest pain at rest, Denies chest pain with activity, Denies edema, Denies irregular heart rhythm, Denies claudication, Denies dyspnea, Denies dyspnea on exertion, Denies orthopnea, Denies paroxysmal nocturnal dyspnea and Denies slow heart rate Resp Denies cough, Denies dyspnea and Denies dyspnea on exertion GI Denies abdominal pain, Denies change in bowel habits, Denies excessive flatus, D enies nausea and Denies vomiting Denies urinary incontinence, Denies urinary hesitancy and Denies urinary urgency Musc Denies abnormal gait, Denies atrophy, Denies deformity and Denies limited range of motion Skin/Breast Denies bleeding lesions, Denies changing lesions and Denies rash Neuro Denies abnormal gait, Denies behavioral changes and Denies lack of coordination Psych Denies behavioral changes Physical exam (Primary Care) Vital Signs: Last Vital Signs BP 112/60 08/21/23 15:28 BMI result Body Mass Index 37.1 Tobacco/Smoking Status: Tobacco use Status Tobacco use date assessed 08/21/23 08/21/23 15:33 Patient Tobacco Use Status Never used Tobacco 08/21/23 15:33 e-Cigarette/Vaping Use Never Used 08/21/23 15:33 PHQ-9: PHQ-9 Score PHQ-9: Total score 0 08/21/23 16:15 Depression Screening Interpretation: Negative Thrive Assessment: Date of Thrive Assessment Date Thrive assessed 08/21/23 08/21/23 15:33 Currently or been in a relationship where the following occur: no concerns reported Neck Neck: Yes normal visual inspection and Yes supple Resp Effort & Inspection: normal respiratory effort Auscultation: clear to auscultation bilaterally Cardio Jugular venous distension: no JVD Rate: regular rate Rhythm: regular rhythm Heart sounds: S1 normal heart sound present and S2 normal heart sound present Extrem General: Yes full ROM Office Procedures Flu Questionnaire Does the patient have a severe egg allergy?: No Does the patient have severe life threatening allergies?: No Does the patient have a fever or illness today?: No Has the patient ever had Guillain-[place] Syndrome?: No Has the patient ever had any past reaction to a flu shot?: No Immunizations flu vacc [id number] 6mos up(PF) 60 mcg(15 mcgx4)/0.5 mL IM syringe Performing Provider: Halle Bonilla MD [facility] Administered by: MIKEY Hernandez on 08/21/23 16:15 Dose Route Admin Location Dispensed Lot Number Expiration Date NDC Crusher Feeder 0.5 mL IM Left Deltoid 0.5 mL [id number] 01/28/24 40499-191-89 [employer] VIS Given Date VIS Provided VIS Publication Date 08/21/23 Single Vaccine 21 Eligibility Eligibility Date Funding Source Not [facility] Eligible 08/21/23 Private Assessment and Plan Assessment & Plan (1) Mild recurrent major depression: Code(s): F33.0 - Major depressive disorder, recurrent, mild Plan: Continue escitalopram. (2) Essential hypertension: Code(s): I10 - Essential (primary) hypertension Plan: Continue hydralazine. Blood pressure goal is equal or less than 130/80. (3) Pure hypercholesterolemia: Code(s): E78.00 - Pure hypercholesterolemia, unspecified Plan: Continue statins. (4) GERD (gastroesophageal reflux disease): Code(s): K21.9 - Gastro-esophageal reflux disease without esophagitis Qualifiers: Esophagitis presence: esophagitis presence not specified Qualified Code(s): K21.9 - Gastro-esophageal reflux disease without esophagitis Plan: Continue PPIs Orders: Orders Influenza [id number] Immunization Today Z23 - Encounter for immunization Lipid Panel 4 Months E78.5 - Hyperlipidemia, unspecified Vitamin D 25-OH Total 4 Months E55.9 - Vitamin D deficiency, unspecified Comprehensive [place]. Panel Fast 4 Months M17.9 - Osteoarthritis of knee, unspecified Referrals Orthopedics Referral M17.9 - Osteoarthritis of knee, unspecified Coding Level of Care Code Est Pt Level 4 (36434) Diagnoses Mild recurrent major depression F33.0 Essential hypertension I10 Pure hypercholesterolemia E78.00 Gastroesophageal reflux disease, unspecified whether esophagitis present K21.9 Esophagitis presence: esophagitis presence not specified Additional Codes ONIEL-7 Assessment Billing - ONIEL-7 Assessment Tool: ONIEL-7 Assessment 26485 ([id number]) Time Spent (min) 24
[2023-08-21 15:28] VITALS: BP 112/60; BMI 37.1
== END 2023-08-21 16:13 | disposition home or self-care (01) ==
PROVIDERS: PCP Internal Medicine; Visit Provider Internal Medicine
DX: Z23 Encounter for immunization (principal); I10 Essential (primary) hypertension; E78.00 Pure hypercholesterolemia, unspecified; K21.9 Gastro-esophageal reflux disease without esophagitis; F33.0 Major depressive disorder, recurrent, mild
CPT/HCPCS: 90471; 90686; 99214

== ENCOUNTER 2023-09-04 10:48 | Outpatient (AMB) | payer OTHER, SELFPAY ==
--- NOTE | 2023-09-04 11:06 | MHC.OFFVIS ---
Intake Intake Visit Reasons: New prob- Bilateral knee OA Intake Note: Alejandra is an 83 year old female who presents today for a new problem visit with complaints of bilateral knee pain. Patient reports that her pain has been ongoing for about 10 years now. Left worse than right. Hx of injections that were helpful. Allergies No Known Allergies Allergy (Verified 09/04/23 11:10) HPI New prob- Bilateral knee OA HPI Details Alejandra is an 83 year old woman who presents with complaints of bilateral knee pain, L>R. She complains of pain with daily activity, and says this has been present for ~10 years now. She has a hx of some relief from injections in the past, and would like to discuss treatment options. She does not have pain all the time. It is mostly wiht trying to do something forceful with her left leg. [facility] Medical History Mild recurrent major depression Right shoulder pain Non-rheumatic aortic stenosis Right ankle pain Left hip pain Bicytopenia Polyuria Long-term use of aspirin therapy Aortic valve stenosis CHRIS on CPAP Hypovitaminosis D GERD (gastroesophageal reflux disease) Depression with anxiety Pure hypercholesterolemia Osteopenia Essential hypertension Pernicious anemia Surgical History History of esophagogastroduodenoscopy (EGD) Hx of colonoscopy History of bilateral cataract extraction History of breast biopsy History of hysterectomy History of cholecystectomy Family History Father No problems noted. Mother Chronic mental illness CVD (cardiovascular disease) Hypertension Family/Other FH: depression Daughter No problems noted. Daughter No problems noted. Son No problems noted. Son No problems noted. Son No problems noted. Son No problems noted. Maternal Aunt Cancer Social History Household Members: None Housing: Apartment Are you a primary lawn care specialist to a significant other at home: No Do you presently have visiting nurse or other home services: Yes (eye physician) Alcohol intake: never Patient Tobacco Use Status: Never used Tobacco e-Cigarette/Vaping Use: Never Used Second Hand Smoke Exposure: No service: No Current occupational status: disabled Current occupation: rt hand Cognitive needs: Yes Hearing needs: No Vision needs: Yes Review of Systems Const All systems reviewed & are unremarkable except as noted in HPI and below Physical Exam Const General: no acute distress, alert and awake Orientation/consciousness: patient oriented x3 HEENT Head: Yes normocephalic and Yes atraumatic Eyes EOM: EOMs intact bilaterally Resp Effort & Inspection: normal respiratory effort and able to speak in complete sentences Cardio Jugular venous distension: no JVD Skin General skin exam: turgor normal Rashes: no rashes Neuro General: patient oriented x3 Extrem Other: 5-100 deg motion left and right knee. No groin pain with hip ROM. Mild gait antalgia. Non focal and mild ttp about bilateral knees Psych Appearance: grossly normal Affect: normal affect Attitude: cooperative Results Reviewed Results Reviewed: End-stage OA bilateral knees Assessment & Plan Assessment & Plan (1) Knee osteoarthritis: Code(s): M17.9 - Osteoarthritis of knee, unspecified Plan: Bilateral knee arthritis. We discussed her diagnosis and treatment options. She does not want injections or surgery. I do not recommend surgery. We discussed bracing and PT but at this time she would like to defer treatment. Plan Prepared for Jim Perea MD by Dung Vazquez, medical practice administrator, on 09/04/23 at 11:18 AM, EST. Coding Level of Care Code Est Pt Level 3 (11428) Diagnoses Knee osteoarthritis M17.9
== END 2023-09-04 11:46 | disposition home or self-care (01) ==
PROVIDERS: PCP Internal Medicine; Visit Provider Orthopaedic Surgery
DX: M17.0 Bilateral primary osteoarthritis of knee (principal)
CPT/HCPCS: 99213

== ENCOUNTER → 2023-09-04 10:48 | Outpatient (BNVA) | payer OTHER, SELFPAY | PROVIDERS: PCP Internal Medicine; Visit Provider Orthopaedic Surgery | DX: M17.0 Bilateral primary osteoarthritis of knee (principal) | CPT/HCPCS: 99212 ==

== ENCOUNTER 2023-12-18 09:16 | Outpatient (REF) | payer OTHER, SELFPAY ==
[2023-12-18 09:38] LABS: MANUAL DIFF FLAG NO
[2023-12-18 10:08] LABS: Basophils Absolute Auto 0.1 X10*3/uL (0.0-0.2); Basophils Percent Auto 1.2 % (0-2); Eosinophils Absolute Auto 0.1 X10*3/uL (0.0-0.4); Eosinophils Percent Auto 2.2 % (0-4); Hematocrit 36.6 % (37.0-47.0); Hemoglobin 11.2 g/dl (12.0-16.0); Imm Gran Abs Auto 0.01 X10*3/uL (0.00-0.03); Imm Gran Pct Auto 0.2 % (0.0-0.4); Lymphocytes Absolute Auto 1.9 X10*3/uL (1.2-4.9); Mean Corpuscular HGB Conc 30.6 g/dl (31.0-35.0); Mean Corpuscular Hemoglobin 25.9 pg (27.0-33.0); Mean Corpuscular Volume 84.7 fL (80.0-98.0); Mean Platelet Volume 9.9 fL (9.4-12.3); Monocytes Absolute Auto 0.4 X10*3/uL (0.1-1.2); Monocytes Percent Auto 10.2 % (2-11); Neutrophils Absolute Auto 1.6 x10*3/uL (2.0-8.3); Neutrophils Percent Auto 39.2 % (45-73); Platelet Count 235 X10*3/uL (160-400); Red Blood Count 4.32 X10*6/uL (4.20-5.50); White Blood Count 4.1 X10*3/uL (4.8-10.8)
[2023-12-18 10:57] LABS: Alanine Aminotransferase 10 U/L (0-31); Albumin Level 3.3 g/dL (3.5-5.0); Alkaline Phosphatase 82 U/L (39-117); Anion Gap 13 (12-20); Aspartate Amino Transferase 20 U/L (5-31); Bilirubin Total 0.3 mg/dL (0.0-1.0); Blood Urea Nitrogen 10 mg/dL (9-16); Calcium 9.3 mg/dL (8.4-10.2); Carbon Dioxide 28 mmol/L (22-29); Chloride 107 mmol/L (96-108); Cholesterol 126 mg/dL (<200); Estimated Glomerular Filt Rate > 60; Glucose Fasting 118 mg/dL (60-99); HDL Cholesterol 52 mg/dL (>40); Iron 40 mcg/dL (30-160); LDL Cholesterol Calculated 57 mg/dL (<100); Percent Iron Saturation 20 % (15-50); Potassium 4.2 mmol/L (3.3-5.1); Sodium 144 mmol/L (135-145); Total Iron Binding Capacity 205 mcg/dL (228-428); Total Protein 7.3 g/dL (6.5-8.0); Triglycerides 85 mg/dL (<150); Unsaturated Iron Binding 165 ug/dL
[2023-12-18 11:15] LABS: Vitamin D 25-OH Total 29.6 ng/mL (>30)
== END 2023-12-18 09:17 | disposition home or self-care (01) ==
LOC: HO.LAB 09:16
PROVIDERS: PCP Internal Medicine; Visit Provider Internal Medicine
DX: D64.9 Anemia, unspecified (principal); M17.9 Osteoarthritis of knee, unspecified; E78.5 Hyperlipidemia, unspecified; E55.9 Vitamin D deficiency, unspecified; I89.0 Lymphedema, not elsewhere classified
CPT/HCPCS: 36415; 80053; 80061; 82306; 83540; 85025

== ENCOUNTER 2023-12-20 14:29 | Outpatient (AMB) | payer OTHER, SELFPAY ==
--- NOTE | 2023-12-20 14:37 | MHC.PC.OV ---
Vital Signs 12/20/23 14:38 Height 5 ft Weight 190 lb BMI 37.1 BP 130/62 Blood Pressure Location Lt brachial Position Sitting Intake Visit Reasons: bp Intake Note: Patient here for a follow up BP, feet swelcv ling Dehydrogenation Supervisor Required: No Accompanied by: Family/Other Allergies No Known Allergies Allergy (Verified 12/20/23 14:56) Medication List - Last Reconciled 12/20/23 by Halle Bonilla MD acetaminophen ER (Mapap Arthritis Pain) 650 mg PO Q8H 30 days [adult pullups As directed] alprazolam 0.5 mg PO TID PRN 30 days aspirin 81 mg PO DAILY 90 days [bedpads As directed] blood pressure monitor As directed calcium carbonate-vitamin D3 600 mg-10 mcg (400 unit) 1 tab PO DAILY 90 days cholecalciferol (vitamin D3) 50 mcg PO DAILY 90 days [compression stochings As directed] disposable gloves As directed escitalopram oxalate (Lexapro) 20 mg PO QAM furosemide 20 mg PO DAILY PRN 7 days gabapentin 100 mg PO BEDTIME 90 days hydralazine 10 mg PO TID 90 days incontinence pad, liner, disp (Prevail Panty Liner pads) As directed meclizine 25 mg PO TID PRN 30 days metoprolol succinate ER (Toprol XL) 25 mg PO DAILY mirtazapine (Remeron) 7.5 mg PO BEDTIME omeprazole 20 mg PO DAILY 90 days rosuvastatin 20 mg PO DAILY 90 days [wipes As directed] Tobacco use date assessed: 08/21/23 Fall risk assessment: No Falls in past year Last assessed Fall Risk: 12/20/23 Dental Screening Dental Screen Date: 08/21/23 HPI HPI Comments History of Present Illness Details This is an 83-year-old female that comes accompanied by [facility] with hypertension, dyslipidemia, impaired glucose tolerance and mild major depression that complains today of left leg pain associated with redness, warmth and tenderness that started few days ago. This is most likely due to cellulitis. She also has left leg swelling and has tender varicose veins and will be referred to vascular surgery. Ultrasound duplex will be ordered today to rule out DVT. Blood pressure stable. Cholesterol has markedly improved. She does have elevated blood glucose but denies any polyuria, polydipsia or weight loss. Blood glucose will be monitor. Depression well controlled with escitalopram. [facility] Medical History (Updated 12/20/23 @ 15:22 by Halle Bonilla MD) Mild recurrent major depression Right shoulder pain Non-rheumatic aortic stenosis Right ankle pain Left hip pain Bicytopenia Polyuria Long-term use of aspirin therapy Aortic valve stenosis CHRIS on CPAP Hypovitaminosis D GERD (gastroesophageal reflux disease) Depression with anxiety Pure hypercholesterolemia Osteopenia Essential hypertension Pernicious anemia Surgical History History of esophagogastroduodenoscopy (EGD) Hx of colonoscopy History of bilateral cataract extraction History of breast biopsy History of hysterectomy History of cholecystectomy Family History Father No problems noted. Mother Chronic mental illness CVD (cardiovascular disease) Hypertension Family/Other FH: depression Daughter No problems noted. Daughter No problems noted. Son No problems noted. Son No problems noted. Son No problems noted. Son No problems noted. Maternal Aunt Cancer Social History Household Members: None Housing: Apartment Are you a primary daycare director to a significant other at home: No Do you presently have visiting nurse or other home services: Yes (eyeglass inspector) Alcohol intake: never Patient Tobacco Use Status: Never used Tobacco e-Cigarette/Vaping Use: Never Used Second Hand Smoke Exposure: No service: No Current occupational status: disabled Current occupation: rt hand Cognitive needs: Yes Hearing needs: No Vision needs: Yes Questionnaire Thrive Questionnaire Date Thrive assessed: 08/21/23 ONIEL-7 AMB Questionnaire ONIEL-7 Date ONIEL - 7 assessed: 08/21/23 Source: Developed by Drs. Antonio Medeiros, Cheyenne Colon, Thony Lam and colleagues, with an educational nacho from [employer]. Review of Systems Const All systems reviewed & are unremarkable except as noted in HPI and below Card Denies chest pain at rest, Denies chest pain with activity, Denies edema, Denies irregular heart rhythm, Denies claudication, Denies dyspnea, Denies dyspnea on exertion, Denies orthopnea, Denies paroxysmal nocturnal dyspnea and Denies slow heart rate Resp Denies cough, Denies dyspnea and Denies dyspnea on exertion Physical exam (Primary Care) Vital Signs: Last Vital Signs BP 130/62 12/20/23 14:38 BMI result Body Mass Index 37.1 Tobacco/Smoking Status: Tobacco use Status Tobacco use date assessed 08/21/23 12/20/23 14:40 Patient Tobacco Use Status Never used Tobacco 12/20/23 14:40 e-Cigarette/Vaping Use Never Used 12/20/23 14:40 Thrive Assessment: Date of Thrive Assessment Date Thrive assessed 08/21/23 12/20/23 14:40 Resp Effort & Inspection: normal respiratory effort Auscultation: clear to auscultation bilaterally Cardio Jugular venous distension: no JVD Rate: regular rate Rhythm: regular rhythm Heart sounds: S1 normal heart sound present and S2 normal heart sound present Extrem General: Yes full ROM Left lower extremity: lower leg Details: erythema, tenderness, localized swelling and warmth Assessment and Plan Assessment & Plan (1) Mild recurrent major depression: Code(s): F33.0 - Major depressive disorder, recurrent, mild Plan: Continue escitalopram. (2) Essential hypertension: Code(s): I10 - Essential (primary) hypertension Plan: Continue hydralazine. Blood pressure goal is equal or less than 130/80. (3) Pure hypercholesterolemia: Code(s): E78.00 - Pure hypercholesterolemia, unspecified Plan: Continue statins. (4) Left leg pain: Code(s): M79.605 - Pain in left leg Plan: Ultrasound to be done today. (5) Venous (peripheral) insufficiency: Code(s): I87.2 - Venous insufficiency (chronic) (peripheral) Plan: For to vascular surgery. (6) Impaired glucose tolerance: Code(s): R73.02 - Impaired glucose tolerance (oral) Plan: Repeat fasting blood glucose. Orders: Orders US venous duplex LE LT Today M79.605 - Pain in left leg Vitamin D 25-OH Total 4 Months E55.9 - Vitamin D deficiency, unspecified Lipid Panel 4 Months E78.5 - Hyperlipidemia, unspecified Complete Blood Count Auto Diff 4 Months D64.9 - Anemia, unspecified IRON PROFILE 4 Months D64.9 - Anemia, unspecified Comprehensive [place]. Panel Fast 4 Months M17.9 - Osteoarthritis of knee, unspecified Referrals Vascular Surgery Referral I87.2 - Venous insufficiency (chronic) (peripheral) Medications: New cephalexin 500 mg PO BID 14 tabs 0RF 7 days Coding Level of Care Code Est Pt Level 4 (51517) Diagnoses Mild recurrent major depression F33.0 Essential hypertension I10 Pure hypercholesterolemia E78.00 Left leg pain M79.605 Venous (peripheral) insufficiency I87.2 Impaired glucose tolerance R73.02 Time Spent (min) 25
[2023-12-20 14:38] VITALS: BP 130/62; BMI 37.1
== END 2023-12-20 15:12 | disposition home or self-care (01) ==
LOC: HO.HMGH 14:33
PROVIDERS: PCP Internal Medicine; Visit Provider Internal Medicine
DX: F33.0 Major depressive disorder, recurrent, mild (principal); I10 Essential (primary) hypertension; E78.00 Pure hypercholesterolemia, unspecified; M79.605 Pain in left leg; I87.2 Venous insufficiency (chronic) (peripheral); R73.02 Impaired glucose tolerance (oral)
CPT/HCPCS: 99214

== ENCOUNTER 2023-12-20 15:25 | Outpatient (REF) | payer OTHER, SELFPAY ==
--- NOTE | ~2023-12-20 | US_ITS ---
EXAMINATION: US LOWER EXTREMITY VENOUS, LEFT CLINICAL INFORMATION: Swelling, edema. COMPARISON: None. TECHNIQUE: Doppler spectral analysis and color flow Doppler imaging was performed of the left lower extremity. Compression and augmentation maneuvers were performed. FINDINGS: Lower extremity venous ultrasound demonstrates no evidence of DVT. The common femoral, femoral, and popliteal veins are normal. They demonstrate normal compressibility and color fill-in. In the calf the occipital posterior tibial vein and the peroneal vein is not seen due to edema. No popliteal fossa cyst. US/US venous duplex LE LT IMPRESSION: No evidence for DVT.
== END 2023-12-20 15:26 | disposition home or self-care (01) ==
LOC: HO.US 15:25
PROVIDERS: PCP Internal Medicine; Visit Provider Internal Medicine
DX: M79.605 Pain in left leg (principal)
CPT/HCPCS: 93971

== ENCOUNTER 2024-01-09 11:37 | Outpatient (AMB) | payer OTHER, SELFPAY ==
[2024-01-09 11:41] VITALS: BMI 37.1
--- NOTE | 2024-01-09 11:41 | MHC.OFFVIS ---
Vital Signs 01/09/24 11:41 Height 5 ft Weight 190 lb BMI 37.1 Intake Visit Reasons: f/u s/p 09/16/2022 Intake Note: follow up 09/16/2022 for LE swelling and VV w/ pain. States Left LE is worse than the right. Pt states that walking during the day increases swelling and elevating legs decreases swelling and pain. Accompanied by: SENIOR IT AUDITOR Allergies No Known Allergies Allergy (Verified 01/09/24 11:47) HPI HPI f/u s/p 09/16/2022: Details: Very pleasant 83-year-old female presents for follow-up regarding lower extremity swelling and discomfort. She would actually seen us back in August of 2022. At that time we had ordered venous insufficiency testing. She had failed to follow up with us after that. She reports that it is left more so than right. She has had a trial of compression and has been somewhat compliant since August of 2022. She now presents for follow-up. [facility] Medical History Mild recurrent major depression Right shoulder pain Non-rheumatic aortic stenosis Right ankle pain Left hip pain Bicytopenia Polyuria Long-term use of aspirin therapy Aortic valve stenosis CHRIS on CPAP Hypovitaminosis D GERD (gastroesophageal reflux disease) Depression with anxiety Pure hypercholesterolemia Osteopenia Essential hypertension Pernicious anemia Surgical History History of esophagogastroduodenoscopy (EGD) Hx of colonoscopy History of bilateral cataract extraction History of breast biopsy History of hysterectomy History of cholecystectomy Family History Father No problems noted. Mother Chronic mental illness CVD (cardiovascular disease) Hypertension Family/Other FH: depression Daughter No problems noted. Daughter No problems noted. Son No problems noted. Son No problems noted. Son No problems noted. Son No problems noted. 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 Cognitive needs: Yes Hearing needs: No Vision needs: Yes Review of Systems Const Reports as per HPI ENT Reports no additional complaints Card Denies chest pain, Denies chest pain at rest and Denies chest pain with activity Resp Denies chest congestion and Denies cough GI Reports no additional complaints Musc Details: pain over varicosities, aching of lower extremities, swelling, cramping, heaviness and tiredness, itching Denies abnormal gait Skin/Breast Reports pruritus and Denies wounds Neuro Reports no additional complaints and Denies abnormal gait Psych Denies no additional complaints Physical Exam Vital Signs: BMI result Body Mass Index 37.1 Const General: cooperative, healthy appearing and comfortable Orientation/consciousness: oriented to person, oriented to place and oriented to time Neck Carotids: no bruits Chest Chest palpation & inspection: normal inspection of the chest and normal palpation of entire chest wall Resp Effort & Inspection: normal respiratory effort and able to speak in complete sentences Cardio Rate: regular rate Heart sounds: S1 normal heart sound present and S2 normal heart sound present Peripheral pulses: Peripheral pulses 2+ throughout GI Inspection: Yes normal to inspection Skin Other: +2 edema, left greater than right CEAP Classification C4 - skin color changes Ep - Etiology Primary As - superficial veins P - reflux General skin exam: dry skin Neuro General: oriented to person, oriented to place and oriented to time Extrem Right lower extremity: full ROM, normal capillary refill and edema Left lower extremity: full ROM, normal capillary refill and edema Psych Mental Status: mental status grossly normal Results Reviewed Results Reviewed: Brief summary of venous insufficiency testing is as follows: right great saphenous vein: Positive right small saphenous vein: negative right accessory vein: none present left great saphenous vein: negative left small saphenous vein: negative left accessory vein: Present and positive Please note there is no evidence of any venous aneurysms or significant tortuosity Assessment & Plan Assessment & Plan (1) Varicose veins of left lower extremity with inflammation: Code(s): I83.12 - Varicose veins of left lower extremity with inflammation Category: Medical Plan: In short patient does have evidence of venous insufficiency. Unfortunately her testing is over a year out. Would like to repeat venous insufficiency testing to better elucidate which veins may benefit from treatment. We did discuss routine conservative measures including compression elevation and exercise. She will follow up with us after testing. Thank you for allowing us to assist in her care. If there are any questions or concerns please do not hesitate to contact us Orders: Orders US venous duplex LE 1 Week I83.12 - Varicose veins of left lower extremity with inflammation Coding Level of Care Code Est Pt Level 4 (97883) Diagnoses Varicose veins of left lower extremity with inflammation I83.12
== END 2024-01-09 12:20 | disposition home or self-care (01) ==
PROVIDERS: PCP Internal Medicine; Visit Provider Surgery Vascular Surgery
DX: I83.12 Varicose veins of left lower extremity with inflammation (principal)
CPT/HCPCS: 99213

== ENCOUNTER → 2024-01-09 11:37 | Outpatient (BNVA) | payer OTHER, SELFPAY | PROVIDERS: PCP Internal Medicine; Visit Provider Surgery Vascular Surgery | DX: I83.12 Varicose veins of left lower extremity with inflammation (principal) | CPT/HCPCS: 99212 ==

== ENCOUNTER 2024-01-22 10:12 | Outpatient (REF) | payer OTHER, SELFPAY ==
--- NOTE | ~2024-01-22 | US_ITS ---
EXAMINATION: US LOWER EXTREMITY VENOUS (REFLUX EXAM), BILATERAL CLINICAL INDICATION: Varicose veins of left lower extremity with inflammation COMPARISON: Venous duplex ultrasound dated 12/20/2023 TECHNIQUE: Color flow triplex imaging and compression Doppler was performed to evaluate both the deep and the superficial systems bilaterally. To evaluate the superficial system, the examination was performed in the upright position. Color-flow Doppler ultrasound and compression ultrasound were utilized. In addition, maneuvers were utilized to demonstrate reflux. FINDINGS: 1. DEEP VENOUS ULTRASOUND OF THE RIGHT LOWER EXTREMITY: Common Femoral Vein: Compressible, normal respiratory variation and augmented flow. Femoral Vein: Compressible, normal color flow and augmentation. Popliteal Vein: Compressible, normal augmentation. Deep Reflux: There is no evidence of reflux in the deep system in either the common femoral vein, superficial femoral or the popliteal vein. There is no evidence of a Calvert's cyst. 2. SUPERFICIAL ULTRASOUND WITH DOPPLER OF RIGHT LOWER EXTREMITY: GREAT SAPHENOUS VEIN: Saphenofemoral Junction: 0.7 cm; Reflux: 0 ms Proximal Thigh: 0.6 cm; Reflux: 0 ms Mid Thigh: 0.4 cm; Reflux: 2280 ms Above Knee: 0.4 cm; Reflux: 2252 ms At Knee: 0.3 cm; Reflux: 2172 ms Below Knee: 0.3 cm; Reflux: 0 ms Mid Calf: 0.2 cm; Reflux: 0 ms Ankle: 0.2 cm; Reflux: 0 ms DUPLICATED LATERAL GREAT SAPHENOUS VEIN: Saphenofemoral Junction: 0.3 cm; Reflux: 0 ms Mid Thigh: 0.3 cm; Reflux: 0 ms SMALL SAPHENOUS VEIN: Saphenopopliteal Junction: 0.3 cm; Reflux: 0 ms Proximal: 0.2 cm; Reflux: 0 ms Distal: 0.2 cm; Reflux: 0 ms PERFORATORS: Location: GSV mid thigh Size: 0.3; Reflux: 0 ms Location: 32 cm from heel Size: 0.2; Reflux: 2260 ms Location: GSV mid calf Size: 0.2; Reflux: 0 ms Location: GSV distal calf Size: 0.2; Reflux: 0 ms Location: GSV distal calf Size: 0.2; Reflux: 0 ms VARICOSITIES: Location: GSV proximal thigh Size: 0.3; Reflux: 0 ms Location: GSV proximal thigh Size: 0.3; Reflux: 2320 ms 3. DEEP VENOUS ULTRASOUND OF THE LEFT LOWER EXTREMITY: Common Femoral Vein: Compressible, normal respiratory variation and augmented flow. Femoral Vein: Compressible, normal color flow and augmentation. Popliteal Vein: Compressible, normal augmentation. Deep Reflux: There is no evidence of reflux in the deep system in either the common femoral vein, superficial femoral or the popliteal vein. There is no evidence of a Calvert's cyst. 4. SUPERFICIAL ULTRASOUND WITH DOPPLER OF LEFT LOWER EXTREMITY: GREAT SAPHENOUS VEIN: Saphenofemoral Junction: 0.6 cm; Reflux: 0 ms Proximal Thigh: 0.5 cm; Reflux: 2112 ms Mid Thigh: 0.2 cm; Reflux: 0 ms Above Knee: 0.2 cm; Reflux: 0 ms At Knee: 0.2 cm; Reflux: 0 ms Below Knee: 0.1 cm; Reflux: 2340 ms Mid Calf: 0.1 cm; Reflux: 0 ms Ankle: 0.1 cm; Reflux: 0 ms DUPLICATED LATERAL GREAT SAPHENOUS VEIN: Saphenofemoral Junction: 0.3 cm; Reflux: 0 ms Mid Thigh: 0.2 cm; Reflux: 0 ms SMALL SAPHENOUS VEIN: Saphenopopliteal Junction: 0.5 cm; Reflux: 0 ms Proximal: 0.2 cm; Reflux: 0 ms Distal: 0.2 cm; Reflux: 0 ms PERFORATORS: Location: SSV proximal Size: 0.2; Reflux: 0 ms Location: GSV proximal calf Size: 0.2; Reflux: 0 ms VARICOSITIES: Location: GSV proximal thigh Size: 2.5; Reflux: 2404 ms US/US venous duplex LE BI IMPRESSION: 1. No evidence of deep venous thrombosis or reflux. 2. Segmental incompetence of the right great saphenous vein from the mid thigh to the knee with reflux measuring up to 2280 ms. The right great saphenous vein gives rise to multiple perforators and varicose veins, 2 of which demonstrate significant reflux, as above. 3. Segmental incompetence of the left great saphenous vein at the level of the proximal thigh and proximal calf with reflux measuring up to 2340 ms, but with interval segments of competence. The left great saphenous vein bifurcates in the proximal thigh into a deep component and a superficial component. The left great saphenous vein also gives rise to multiple perforators and varicose veins, two of which demonstrate significant reflux, as above. 4. 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
== END 2024-01-22 10:13 | disposition home or self-care (01) ==
LOC: HO.US 10:12
PROVIDERS: PCP Internal Medicine; Visit Provider Surgery Vascular Surgery
DX: I83.12 Varicose veins of left lower extremity with inflammation (principal)
CPT/HCPCS: 93970

== ENCOUNTER 2024-02-14 14:26 | Outpatient (AMB) | payer OTHER, SELFPAY ==
[2024-02-14 14:37] VITALS: BP 140/60; BMI 37.2
--- NOTE | 2024-02-14 14:37 | MHC.OFFVIS ---
Vital Signs 02/14/24 14:37 Height 5 ft Weight 190 lb 7.67 oz BMI 37.2 BP 140/60 H Blood Pressure Location Lt brachial Position Sitting Intake Visit Reasons: 6 mth /fup Telecommunications Line Installer Required: No Telecommunications Line Installer Services: Telecommunications Line Installer Offered & Declined Telecommunications Line Installer Name: Kale Accompanied by: Other Relationship Allergies No Known Allergies Allergy (Verified 01/09/24 11:47) Medication List - Last Reconciled 02/14/24 by Joni Mercer MD acetaminophen ER (Mapap Arthritis Pain) 650 mg PO Q8H 30 days [adult pullups As directed] alprazolam mg PO aspirin 81 mg PO DAILY 90 days [bedpads As directed] blood pressure monitor As directed calcium carbonate-vitamin D3 600 mg-10 mcg (400 unit) 1 tab PO DAILY 90 days cholecalciferol (vitamin D3) 50 mcg PO DAILY 90 days [compression stochings As directed] disposable gloves As directed escitalopram oxalate (Lexapro) 20 mg PO QAM furosemide 20 mg PO DAILY PRN 7 days gabapentin 100 mg PO BEDTIME 90 days hydralazine 10 mg PO TID 90 days incontinence pad, liner, disp (Prevail Panty Liner pads) As directed meclizine 25 mg PO TID PRN 30 days metoprolol succinate ER (Toprol XL) 25 mg PO DAILY mirtazapine (Remeron) 7.5 mg PO BEDTIME omeprazole 20 mg PO DAILY 90 days rosuvastatin 20 mg PO DAILY 90 days [wipes As directed] HPI Comments Details: Alejandra returns for follow-up regarding aortic stenosis. Overall, doing well. No complaints like shortness of breath, chest pain or dizziness or syncope. No specific concerns. Her blood pressure meds have been changed quite a bit. She was on lisinopril but not in her list anymore. Not clear why. She was also on amlodipine but not taking that either due to leg swelling. Blood pressure is slightly high today. At home, it is about this or even higher. [facility] Medical History Mild recurrent major depression Right shoulder pain Non-rheumatic aortic stenosis Right ankle pain Left hip pain Bicytopenia Polyuria Long-term use of aspirin therapy Aortic valve stenosis CHRIS on CPAP Hypovitaminosis D GERD (gastroesophageal reflux disease) Depression with anxiety Pure hypercholesterolemia Osteopenia Essential hypertension Pernicious anemia Surgical History History of esophagogastroduodenoscopy (EGD) Hx of colonoscopy History of bilateral cataract extraction History of breast biopsy History of hysterectomy History of cholecystectomy Family History Father No problems noted. Mother Chronic mental illness CVD (cardiovascular disease) Hypertension Family/Other FH: depression Daughter No problems noted. Daughter No problems noted. Son No problems noted. Son No problems noted. Son No problems noted. Son No problems noted. 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 Cognitive needs: Yes Hearing needs: No Vision needs: Yes Review of Systems Const Denies chills, Denies fatigue, Denies fever(s), Denies weight gain and Denies weight loss ENT Denies dizziness Card Denies chest pain, Denies leg edema, Denies lightheadedness, Denies palpitations, Denies dyspnea on exertion, Denies orthopnea and Denies other Resp Denies cough and Denies dyspnea on exertion GI Denies hematochezia and Denies change in stool character Musc Denies abnormal gait, Denies muscle weakness, Denies numbness, Denies radiating pain into limb and Denies tingling Neuro Denies abnormal gait, Denies dizziness, Denies numbness and Denies tingling Endo Denies fatigue and Denies palpitations Physical Exam Vital Signs: Last Vital Signs BP 140/60 H 02/14/24 14:37 BMI result Body Mass Index 37.2 Const General: comfortable and no acute distress Orientation/consciousness: patient oriented x3 HEENT Other: Unremarkable Head: Yes normal to inspection Neck Neck: Yes normal visual inspection Chest Chest palpation & inspection: normal inspection of the chest Resp Auscultation: clear to auscultation bilaterally Cardio Palpation: normal PMI Heart sounds: S1 normal heart sound present, S2 normal heart sound present, no gallops, Murmur heart sound present systolic III/ and at the right sternal border and no rubs GI Palpation (GI): Soft to palpation Back/Spine/Pelvis Other: unremarkable Skin General skin exam: no rashes or lesions noted Neuro General: patient oriented x3 Extrem General: Yes normal to inspection Psych Mental Status: mental status grossly normal Office Procedures EKG Details: EKG with sinus rhythm at 73/Min; anterolateral downsloping STs with T inversions probably from LVH. Similar to prior. [id number], Complete Assessment & Plan Assessment & Plan (1) Non-rheumatic aortic stenosis: Code(s): I35.0 - Nonrheumatic aortic (valve) stenosis Category: Medical Plan: Her aortic stenosis difficult to assess mainly because of high stroke volume. In the last study, mean gradient across the valve is 40 mm Hg, peak 63 mm Hg. Calculated valve area of 0.9 cm2. Dimensionless index was 0.4. Thought to be moderate to severe aortic stenosis. However, she has a hyperdynamic LV with high stroke volume and hence not clear how much of the high gradients are because of the high stroke volume. Clinically, she does not have any overt symptoms at this time. We will continue to monitor. Recheck before next visit. (2) Essential hypertension: Code(s): I10 - Essential (primary) hypertension Category: Medical Plan: Several med changes. In the past, she was on amlodipine but not taking it because of leg swelling. She was on lisinopril but not on that either. Only on hydralazine/metoprolol. Resume lisinopril 10 mg daily and then recheck labs in a few days. Discussed today. (3) CHRIS on CPAP: Code(s): G47.33 - Obstructive sleep apnea (adult) (pediatric); Z99.89 - Dependence on other enabling machines and devices Category: Medical Plan: Continue CPAP. Plan Discussed with family who came for appointment. Orders: Orders CA echo transthoracic complete 6 Months I35.0 - Nonrheumatic aortic (valve) stenosis Comprehensive [place]. Panel Fast 12/18/23 M17.9 - Osteoarthritis of knee, unspecified Medications: New lisinopril 10 mg PO DAILY 90 tabs 3RF Coding Level of Care Code Est Pt Level 4 (75860) Diagnoses Non-rheumatic aortic stenosis I35.0 Essential hypertension I10 CHRIS on CPAP G47.33; Z99.89 CPT Codes EKG - CPT: 75704-[id number], Complete ([id number])
== END 2024-02-14 15:05 | disposition home or self-care (01) ==
PROVIDERS: PCP Internal Medicine; Visit Provider Internal Medicine
DX: I35.0 Nonrheumatic aortic (valve) stenosis (principal); I10 Essential (primary) hypertension; G47.33 Obstructive sleep apnea (adult) (pediatric); Z99.89 Dependence on other enabling machines and devices
CPT/HCPCS: 93010; 99214

== ENCOUNTER → 2024-02-14 14:26 | Outpatient (BNVA) | payer OTHER, SELFPAY | PROVIDERS: PCP Internal Medicine; Visit Provider Internal Medicine | DX: I35.0 Nonrheumatic aortic (valve) stenosis (principal); I10 Essential (primary) hypertension; G47.33 Obstructive sleep apnea (adult) (pediatric); M17.9 Osteoarthritis of knee, unspecified; Z99.89 Dependence on other enabling machines and devices | CPT/HCPCS: 93005; 99212 ==

== ENCOUNTER 2024-02-23 10:09 | Outpatient (AMB) | payer OTHER, SELFPAY ==
--- NOTE | 2024-02-23 10:11 | MHC.OFFVIS ---
Vital Signs 02/23/24 10:12 Height 5 ft Weight 190 lb 0.615 oz BMI 37.1 BP 139/62 Blood Pressure Location Lt brachial Position Sitting Pulse 93 Intake Visit Reasons: Pre colonoscopy Intake Note: Patient in office today for colonoscopy screening. CC: Last colonoscopy in 2019 per patient here at [facility] [place] and polyps removed at that time. Patient reports occasional diarrhea. Denies other GI symptoms today. Bartenders Required: Yes Bartenders Name: SHOP MANAGER Accompanied by: SHOP MANAGER Allergies No Known Allergies Allergy (Verified 04/16/24 15:01) HPI HPI Pre colonoscopy: Details: Assessment & Plan (1) Colon cancer screening: Code(s): Z12.11 - Encounter for screening for malignant neoplasm of colon Plan - MARIIA Gordon-C: [place] - SHOP MANAGER translates per patient request. Her last colonoscopy was in [place] and she had polyps - this was > 5 years. She denies any bowel problems or upper GI problems. There are no prior problems with anesthesia or sedation. She has and her groundskeeping maintenance is Ruslan, but she is stable. She has CHRIS and uses CPAP. There is no known FHX of CRC or polyps. Ht 5'1 wt 195 (2) History of colon polyps: Code(s): Z86.010 - Personal history of colonic polyps COLONOSCOPY 01/01/21 Findings: Terminal Ileum: Not evaluated Cecum: Normal Ascending Colon: A 5-6 mm sessile polyp removed with a cold bx Transverse Colon: A 7-8 mm sessile polyp removed with a cold snare. A 12-15 mm sessile polyp removed with a hot snare Descending Colon: Moderate diverticulosis Sigmoid Colon: Moderate diverticulosis Rectum: Normal Ano-rectum: Normal Colon preparation: Good after copious irrigation Impression and Post Procedure Diagnosis: Colonoscopy Findings: Three polyps removed Moderate diverticulosis seen in the left colon Moderate hemorrhoids on retroflexed exam. Plan: Await pathology results Patient has an appointment on []in the GI Clinic with [RIAN Stewart] [Latisha Mishra NP] [Naye Alberts, [employer]] [Marek Cordero M.D.]. Repeat Colonoscopy interval based on path results - in 3-5 years if polyps are adenomatous and 10 years if polyps are hyperplastic. BIOPSY A. Colon, ascending, polypectomy: Tubular adenoma; no high grade dysplasia or carcinoma seen. B. Colon, transverse, polypectomies: Fragments of tubular adenomas; no high-grade dysplasia or carcinoma seen. Laboratory Tests 12/18/23 09:37 WBC 4.1 L Hgb 11.2 L Hct 36.6 L MCV 84.7 MCH 25.9 L MCHC 30.6 L Plt Count 235 Estimated GFR > 60 Total Bilirubin 0.3 AST 20 ALT 10 Alkaline Phosphatase 82 TODAY'S VISIT [place] #Dion Downey She is here today with her dtr who is supportive She is here today for her repeat colonoscopy since she had have several tubular adenomas in the. Her cardiac and resp problems are well controlled (CHRIS and mitral) There are no prior problems with anesthesia or sedation. There are no infectious disease problems. Again she has a history of several tubular adenomas. [facility] Medical History (Updated 04/19/24 @ 15:40 by JAYCE Gordon) Colon cancer screening Mild recurrent major depression Right shoulder pain Non-rheumatic aortic stenosis Right ankle pain Left hip pain Bicytopenia Polyuria Long-term use of aspirin therapy Aortic valve stenosis CHRIS on CPAP Hypovitaminosis D GERD (gastroesophageal reflux disease) Depression with anxiety Pure hypercholesterolemia Osteopenia Essential hypertension Pernicious anemia Surgical History History of esophagogastroduodenoscopy (EGD) Hx of colonoscopy History of bilateral cataract extraction History of breast biopsy History of hysterectomy History of cholecystectomy Family History Father No problems noted. Mother Chronic mental illness CVD (cardiovascular disease) Hypertension Family/Other FH: depression Daughter No problems noted. Daughter No problems noted. Son No problems noted. Son No problems noted. Son No problems noted. Son No problems noted. 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 Cognitive needs: Yes Hearing needs: No Vision needs: Yes Review of Systems Const Denies fatigue, Denies fever(s), Denies night sweats, Denies poor appetite and Denies weight loss ENT Reports Normal hearing present, Denies dysphagia, Denies odynophagia, Denies throat swelling and Denies tongue swelling Card Reports no additional complaints Resp Reports no additional complaints GI Details: Denies abdominal pain, Denies melena, Denies bloating, Denies hematochezia, Denies constipation, Denies GI cramping, Denies dysphagia, Denies excessive flatus, Denies early satiety, Reports heartburn, Denies diarrhea, Denies nausea, Denies odynophagia, Denies vomiting and Denies hematemesis Skin/Breast Denies pruritus, Denies lesions, Denies rash and Denies jaundice Neuro Reports Normal hearing present and Denies Abnormal speech present Endo Denies fatigue Aller/Immun Denies throat swelling and Denies tongue swelling Physical Exam Vital Signs: Last Vital Signs Pulse 93 02/23/24 10:12 BP 139/62 02/23/24 10:12 BMI result Body Mass Index 37.1 Const General: cooperative, no acute distress, well developed and well groomed Nutritional Appearance: well nourished and obese Orientation/consciousness: oriented to person, oriented to place and oriented to time Limitations: language barrier HEENT Head: Yes normocephalic and Yes atraumatic Eyes General: appearance normal, both eyes and all related structures Pupils: Equal, round and reactive pupils present Neck Neck: Yes normal visual inspection and Yes no lymphadenopathy Thyroid: Thyroid normal Resp Effort & Inspection: normal respiratory effort and able to speak in complete sentences Auscultation: clear to auscultation bilaterally Cardio Rate: regular rate Rhythm: regular rhythm Heart sounds: Murmur heart sound present continuous (ratliff systolic) Peripheral pulses: radial pulses present and posterior tibial pulses present GI Inspection: No distended, Yes Abdominal panniculus present and Yes obesity Palpation (GI): Soft to palpation, nontender, no guarding, not rigid and No hepatosplenomegaly present Percussion: Yes normal to percussion Auscultation: normal bowel sounds Rectal Exam - Female: deferred Skin General skin exam: no rashes or lesions noted, turgor normal, skin not dry, no jaundice, No spider nevi and no striae Rashes: no rashes Nails: normal Neuro General: oriented to person, oriented to place and oriented to time Cranial nerves: Yes Equal, round and reactive pupils present and Yes Normal hearing present Speech: No Abnormal speech present Extrem General: Yes normal to inspection, No clubbing, No cyanosis and Yes edema Psych Appearance: grossly normal and well kempt Mental Status: mental status grossly normal Speech and movement: Normal speech and movement present Affect: normal affect Attitude: cooperative Thought process: Normal thought process present and not confabulating Thought content: Normal thought content present Insight: Limited insight present (Psych) Judgement: Limited judgement present (Psych) Results Reviewed Results Reviewed: Laboratory Tests 12/18/23 09:37 WBC 4.1 L Hgb 11.2 L Hct 36.6 L MCV 84.7 MCH 25.9 L MCHC 30.6 L Plt Count 235 Estimated GFR > 60 Total Bilirubin 0.3 AST 20 ALT 10 Alkaline Phosphatase 82 Assessment & Plan Assessment & Plan (1) Tubular adenoma of colon: Comment: 2 polyps removed 12/2020 repeat in 3 years Code(s): D12.6 - Benign neoplasm of colon, unspecified Category: Medical (2) Pre-op examination: Code(s): Z01.818 - Encounter for other preprocedural examination Category: Medical Plan [place] #Dion Live She is here today with her dtr who is supportive She is here today for her repeat colonoscopy since she had have several tubular adenomas in the. Her cardiac and resp problems are well controlled (CHRIS and mitral) There are no prior problems with anesthesia or sedation. There are no infectious disease problems. Again she has a history of several tubular adenomas. Orders: Orders Colonoscopy - GI Use Only 02/23/24 D12.6 - Benign neoplasm of colon, unspecified Medications: New bisacodyl (Dulcolax (bisacodyl)) 10 mg (2 x 5 mg) PO BEDTIME 4 tabs 0RF 2 days peg 3350-electrolytes 236-22.74-6.74 -5.86 gram (Golytely) until fecal effluent is clear; do not exceed a total volume of 2,000 mL 240 mL PO Q10M 4,000 mL 0RF 1 day Z12.11 - Encounter for screening for malignant neoplasm of colon Coding Level of Care Code Est Pt Level 4 (34460) Diagnoses Tubular adenoma of colon D12.6 Pre-op examination Z01.818
[2024-02-23 10:12] VITALS: BP 139/62; PULSE 93; BMI 37.1
== END 2024-02-23 10:37 | disposition home or self-care (01) ==
PROVIDERS: PCP Internal Medicine; Visit Provider Nurse Practitioner
DX: D12.6 Benign neoplasm of colon, unspecified (principal); Z01.818 Encounter for other preprocedural examination
CPT/HCPCS: 99214

== ENCOUNTER → 2024-02-23 10:09 | Outpatient (BNVA) | payer OTHER, SELFPAY | PROVIDERS: PCP Internal Medicine; Visit Provider Nurse Practitioner | DX: Z01.818 Encounter for other preprocedural examination (principal); Z86.010 Personal history of colon polyps | CPT/HCPCS: 99212 ==

== ENCOUNTER 2024-02-27 08:49 | Outpatient (REF) | payer OTHER, SELFPAY ==
[2024-02-27 09:02] LABS: MANUAL DIFF FLAG NO
[2024-02-27 09:27] LABS: Basophils Absolute Auto 0.1 X10*3/uL (0.0-0.2); Basophils Percent Auto 1.3 % (0-2); Eosinophils Absolute Auto 0.1 X10*3/uL (0.0-0.4); Eosinophils Percent Auto 2.4 % (0-4); Hematocrit 37.7 % (37.0-47.0); Hemoglobin 11.6 g/dl (12.0-16.0); Imm Gran Abs Auto 0.02 X10*3/uL (0.00-0.03); Imm Gran Pct Auto 0.5 % (0.0-0.4); Lymphocytes Percent Auto 52.3 % (20-40); Mean Corpuscular HGB Conc 30.8 g/dl (31.0-35.0); Mean Corpuscular Volume 84.3 fL (80.0-98.0); Mean Platelet Volume 10.2 fL (9.4-12.3); Monocytes Absolute Auto 0.4 X10*3/uL (0.1-1.2); Monocytes Percent Auto 10.1 % (2-11); Neutrophils Absolute Auto 1.3 x10*3/uL (2.0-8.3); Neutrophils Percent Auto 33.4 % (45-73); Platelet Count 237 X10*3/uL (160-400); Red Blood Count 4.47 X10*6/uL (4.20-5.50); Red Cell Distribution Width 16.5 % (11.0-16.0); White Blood Count 3.8 X10*3/uL (4.8-10.8)
[2024-02-27 09:50] LABS: Alanine Aminotransferase 8 U/L (0-31); Albumin Level 3.7 g/dL (3.5-5.0); Alkaline Phosphatase 71 U/L (39-117); Anion Gap 11 (12-20); Aspartate Amino Transferase 18 U/L (5-31); Bilirubin Total 0.3 mg/dL (0.0-1.0); Blood Urea Nitrogen 13 mg/dL (9-16); Calcium 9.7 mg/dL (8.4-10.2); Carbon Dioxide 31 mmol/L (22-29); Chloride 105 mmol/L (96-108); Estimated Glomerular Filt Rate > 60; Glucose Random 111 mg/dL (60-115); Potassium 4.6 mmol/L (3.3-5.1); Sodium 142 mmol/L (135-145); Total Protein 7.4 g/dL (6.5-8.0)
== END 2024-02-27 08:50 | disposition home or self-care (01) ==
LOC: HO.LAB 08:49
PROVIDERS: PCP Internal Medicine; Visit Provider Internal Medicine Medical Oncology
DX: D75.89 Other specified diseases of blood and blood-forming organs (principal)
CPT/HCPCS: 36415; 80053; 85025

== ENCOUNTER 2024-04-16 14:55 | Outpatient (AMB) | payer OTHER, SELFPAY ==
--- NOTE | 2024-04-16 15:00 | A.OFFVIS_ITS ---
Intake Visit Reasons: Follow Up 01/21 Intake Note: Patient states her left leg hurts all the time most days it prevents her from walking. Both legs swell but she states the left one is worse. Occasional cramping. Feels like ants are crawling on her legs. Allergies No Known Allergies Allergy (Verified 04/16/24 15:01) HPI HPI Follow Up 01/21 : Details: Very pleasant 83-year-old female presents for follow-up with venous insufficiency testing. She continues to complain about swelling and discomfort. Left more so than right. She now presents for routine follow-up. [facility] Medical History Mild recurrent major depression Right shoulder pain Non-rheumatic aortic stenosis Right ankle pain Left hip pain Bicytopenia Polyuria Long-term use of aspirin therapy Aortic valve stenosis CHRIS on CPAP Hypovitaminosis D GERD (gastroesophageal reflux disease) Depression with anxiety Pure hypercholesterolemia Osteopenia Essential hypertension Pernicious anemia Surgical History History of esophagogastroduodenoscopy (EGD) Hx of colonoscopy History of bilateral cataract extraction History of breast biopsy History of hysterectomy History of cholecystectomy Family History Father No problems noted. Mother Chronic mental illness CVD (cardiovascular disease) Hypertension Family/Other FH: depression Daughter No problems noted. Daughter No problems noted. Son No problems noted. Son No problems noted. Son No problems noted. Son No problems noted. 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) Alcohol intake: never Patient Tobacco Use Status: Never used Tobacco e-Cigarette/Vaping Use: Never Used Second Hand Smoke Exposure: No service: No Current occupational status: disabled Current occupation: rt hand Cognitive needs: Yes Hearing needs: No Vision needs: Yes Review of Systems Const Reports as per HPI ENT Reports no additional complaints Card Denies chest pain, Denies chest pain at rest and Denies chest pain with activity Resp Denies chest congestion and Denies cough GI Reports no additional complaints Musc Details: pain over varicosities, aching of lower extremities, swelling, cramping, heaviness and tiredness, itching Denies abnormal gait Skin/Breast Reports pruritus and Denies wounds Neuro Reports no additional complaints and Denies abnormal gait Psych Denies no additional complaints Physical Exam Const General: cooperative, healthy appearing and comfortable Orientation/consciousness: oriented to person, oriented to place and oriented to time Neck Carotids: no bruits Chest Chest palpation & inspection: normal inspection of the chest and normal palpation of entire chest wall Resp Effort & Inspection: normal respiratory effort and able to speak in complete sentences Cardio Rate: regular rate Heart sounds: S1 normal heart sound present and S2 normal heart sound present Peripheral pulses: Peripheral pulses 2+ throughout GI Inspection: Yes normal to inspection Skin Other: +2 edema, large rope-like varicosities greater than 4 mm CEAP Classification C4 - skin color changes Ep - Etiology Primary As - superficial veins P - reflux General skin exam: dry skin Neuro General: oriented to person, oriented to place and oriented to time Extrem Right lower extremity: full ROM, normal capillary refill and edema Left lower extremity: full ROM, normal capillary refill and edema Psych Mental Status: mental status grossly normal Results Reviewed Results Reviewed: Brief summary of venous insufficiency testing is as follows: right great saphenous vein: Positive right small saphenous vein: negative right accessory vein: none present left great saphenous vein: Positive left small saphenous vein: negative left accessory vein: none present Please note there is no evidence of any venous aneurysms or significant tortuosity Assessment & Plan Assessment & Plan (1) Varicose veins of left lower extremity with inflammation: Code(s): I83.12 - Varicose veins of left lower extremity with inflammation Category: Medical Plan: This patient has varicose veins with inflammation. They continue to be a source of discomfort for the patient. The patient has tried conservative treatment with compression, leg elevation and exercise program for over 3 months time. They have been compliant with all treatment. This has provided minimal relief for the patient. I do not anticipate this course of treatment will alter the underlying etiology. The patient has been scheduled for lower extremity venous treatment inclusive of --- left great saphenous vein Cyanoacralate ablation. Risks, benefits, and complications of this procedure has been discus sed in detail with the patient including but not limited to bleeding, infection, and the development of a DVT. The patient has demonstrated a clear understanding and has consented. We will schedule the patient as soon as possible. Thank you for allowing us to participate in this patient's care. If there are any questions or concerns please do not hesitate to contact us. Coding Level of Care Code Est Pt Level 4 (64071) Diagnoses Varicose veins of left lower extremity with inflammation I83.12
== END 2024-04-16 15:20 | disposition home or self-care (01) ==
PROVIDERS: PCP Internal Medicine; Visit Provider Surgery Vascular Surgery
DX: I83.12 Varicose veins of left lower extremity with inflammation (principal)
CPT/HCPCS: 99214

== ENCOUNTER → 2024-04-16 14:55 | Outpatient (BNVA) | payer OTHER, SELFPAY | PROVIDERS: PCP Internal Medicine; Visit Provider Surgery Vascular Surgery | DX: I83.12 Varicose veins of left lower extremity with inflammation (principal) | CPT/HCPCS: 99212 ==

== ENCOUNTER 2024-05-10 09:24 | Outpatient (AMB) | payer OTHER, SELFPAY ==
--- NOTE | 2024-05-10 09:29 | MHC.OFFVIS ---
Intake Visit Reasons: Left Venaseal Accompanied by: Self / Same As Patient Allergies No Known Allergies Allergy (Verified 05/10/24 09:30) [facility] Medical History Colon cancer screening Mild recurrent major depression Right shoulder pain Non-rheumatic aortic stenosis Right ankle pain Left hip pain Bicytopenia Polyuria Long-term use of aspirin therapy Aortic valve stenosis CHRIS on CPAP Hypovitaminosis D GERD (gastroesophageal reflux disease) Depression with anxiety Pure hypercholesterolemia Osteopenia Essential hypertension Pernicious anemia Surgical History History of esophagogastroduodenoscopy (EGD) Hx of colonoscopy History of bilateral cataract extraction History of breast biopsy History of hysterectomy History of cholecystectomy Family History Father No problems noted. Mother Chronic mental illness CVD (cardiovascular disease) Hypertension Family/Other FH: depression Daughter No problems noted. Daughter No problems noted. Son No problems noted. Son No problems noted. Son No problems noted. Son No problems noted. 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 The depth and diameter of the vein(s) to be treated was documented. The patient was placed supine on the procedure table and the leg was prepped and draped using sterile technique. Ultasound guidance was again used to localize the access site. 1% lidocaine was injected as a local anesthetic in the subcutaneous tissues at the target location in the GSV in the lower leg. Using ultrasound guidance, access was gained at this location with the 19 gauge thin walled access needle and followed by introduction of a short guidewire, location confirmed with ultrasound. A small, 3 mm incision was made at the access site to allow for introduction and placement of the 7 Fr x7cm introducer/dilator. The dilator and guidewire were removed. The 0.035 guidewire from the VenaSeal kit was then introduced and positioned at the saphenofemoral junction using ultrasound guidance. The 80 cm 7 Fr introducer sheath/dilator was positioned 5cm from the saphenofemoral junction. The guidewire and dilator were removed, and the remaining sheath was flushed with sterile saline, with the syringe remaining in place prior to the next steps. The cyanoacrylate adhesive was precisely primed into the 5 F delivery catheter and this catheter/syringe combination was attached within the dispenser gun. This assembly was introduced through the 7F sheath and positioned 5 cm caudal of the saphenofemoral junction under ultrasound guidance. The steps from the IFU were followed for dispensing amounts, locations and compression times, 2 aliquots proximally with 3 minutes of compression, and 1 aliquot every 3 cm distally with 30 sec of compression along the course of the vessel. Following the last injection and compression sequence, the catheter and introducer sheath were pulled out from the access site. Hemostasis was achieved with manual compression and an adhesive bandage was applied to the incision. Ultrasound confirmed complete coaptation and closure of the treated segments of the GSV, and the absence of any DVT at the saphenofemoral junction. Treatment time was approximately 4 minutes and the vein length treated was 20 cm. The drapes were removed and the patient cleaned and prepared for discharge. Post op ultrasound check is scheduled for 48-72 hours and the patient was given written post-op instructions. 80888 - Endoven Ther Chem Adhes 1st All charges added?: Procedure code (CPT) selection complete Assessment & Plan Assessment & Plan (1) Varicose veins of left lower extremity with inflammation: Comment: 05/10/2024 - left great saphenous vein Cyanoacralate ablation Code(s): I83.12 - Varicose veins of left lower extremity with inflammation Category: Medical Plan: See op note Coding Level of Care Code Procedure Only Diagnoses Varicose veins of left lower extremity with inflammation I83.12 CPT Codes Details - Vascular 3: 66017 - Endoven Ther Chem Adhes 1st ([id number])
== END 2024-05-10 10:26 | disposition home or self-care (01) ==
PROVIDERS: PCP Internal Medicine; Visit Provider Surgery Vascular Surgery
DX: I83.12 Varicose veins of left lower extremity with inflammation (principal)
CPT/HCPCS: 36482

== ENCOUNTER → 2024-05-10 09:24 | Outpatient (BNVA) | payer OTHER, SELFPAY | PROVIDERS: PCP Internal Medicine; Visit Provider Surgery Vascular Surgery | DX: I83.12 Varicose veins of left lower extremity with inflammation (principal) | CPT/HCPCS: 36482; J2003 ==

== ENCOUNTER 2024-05-13 14:08 | Outpatient (REF) | payer OTHER, SELFPAY ==
--- NOTE | ~2024-05-13 | US_ITS ---
EXAMINATION: TRIPLEX SCANNING OF LEFT LOWER EXTREMITY; SUPERFICIAL ULTRASOUND WITH DOPPLER OF LEFT LOWER EXTREMITY CLINICAL INFORMATION: Status post Venaseal of the left great saphenous vein Ambulatory phlebectomy performed: No Originally performed on 05/13/24. COMPARISON: preprocedure studies. TECHNIQUE: Color flow triplex imaging and compression Doppler were performed as well as superficial ultrasound with Doppler. FINDINGS: LEFT LOWER EXTREMITY DEEP VENOUS SYSTEM: Respiratory variation, normal compression and augmented flow are noted throughout the lower extremity. The visualized common femoral vein, femoral vein, profunda femoral vein, popliteal vein and the calf veins show no evidence of deep venous thrombosis. There is no evidence of Calvert's cyst. SUPERFICIAL VENOUS SYSTEM: The great saphenous vein is occluded from the access site to just before the saphenofemoral junction. There is no extension of thrombus into the deep system. US/US venous duplex LE IMPRESSION: 1. No evidence of DVT. 2. Excellent appearance status post ablation of the left great saphenous vein. Electronically signed by: Mindy Warner MD 05/13/2024 02:45 PM EDT
== END 2024-05-13 14:09 | disposition home or self-care (01) ==
LOC: HO.US 14:08
PROVIDERS: PCP Internal Medicine; Visit Provider Surgery Vascular Surgery
DX: M79.605 Pain in left leg (principal)
CPT/HCPCS: 93971

== ENCOUNTER 2024-05-23 14:44 | Outpatient (AMB) | payer OTHER, SELFPAY ==
--- NOTE | 2024-05-23 15:02 | MHC.OFFVIS ---
Intake Visit Reasons: 2 week follow up left leg venaseal Intake Note: Patient presents for 2 week follow up left leg venaseal. No complaints. Accompanied by: Unknown Allergies No Known Allergies Allergy (Verified 05/23/24 15:02) HPI HPI 2 week follow up left leg venaseal: Details: Very pleasant 83-year-old female presents for follow-up status post left great saphenous vein ablation. She reports that the leg is less swollen and denies any significant discomfort postprocedure. Overall reports that the leg is doing significantly better. She now presents for routine postoperative follow-up. Of note postprocedure ultrasound was negative for DVT. [facility] Medical History Colon cancer screening Mild recurrent major depression Right shoulder pain Non-rheumatic aortic stenosis Right ankle pain Left hip pain Bicytopenia Polyuria Long-term use of aspirin therapy Aortic valve stenosis CHRIS on CPAP Hypovitaminosis D GERD (gastroesophageal reflux disease) Depression with anxiety Pure hypercholesterolemia Osteopenia Essential hypertension Pernicious anemia Surgical History History of esophagogastroduodenoscopy (EGD) Hx of colonoscopy History of bilateral cataract extraction History of breast biopsy History of hysterectomy History of cholecystectomy Family History Father No problems noted. Mother Chronic mental illness CVD (cardiovascular disease) Hypertension Family/Other FH: depression Daughter No problems noted. Daughter No problems noted. Son No problems noted. Son No problems noted. Son No problems noted. Son No problems noted. 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 Cognitive needs: Yes Hearing needs: No Vision needs: Yes Review of Systems Const All systems reviewed & are unremarkable except as noted in HPI and below Reports no additional complaints ENT Reports Normal hearing present Card Denies chest pain, Denies chest pain at rest, Denies chest pain with activity and Denies pedal edema Resp Denies cough GI Denies abdominal pain Musc Denies abnormal gait, Denies muscle cramps and Denies radiating pain into limb Skin/Breast Denies skin ulcer and Denies wounds Neuro Reports Normal hearing present and Denies abnormal gait Psych Reports no additional complaints Physical Exam Const General: cooperative, healthy appearing and comfortable Orientation/consciousness: oriented to person, oriented to place and oriented to time HEENT Head: Yes normal to inspection Neck Neck: Yes normal visual inspection Carotids: no bruits Chest Chest palpation & inspection: normal inspection of the chest Resp Effort & Inspection: normal respiratory effort and able to speak in complete sentences Auscultation: clear to auscultation bilaterally, no crackles, no rales, no rhonchi and no wheezes Cardio Rate: regular rate Rhythm: regular rhythm Heart sounds: S1 normal heart sound present and S2 normal heart sound present Bruits: no carotid bruits Peripheral pulses: Peripheral pulses 2+ throughout GI Inspection: Yes normal to inspection Skin Wounds: no wounds Hair: normal Neuro General: oriented to person, oriented to place and oriented to time Cranial nerves: Yes CN's II-XII intact bilaterally and Yes Normal hearing present Cognition (Neuro): normal cognition Motor exam (neuro): 5/5 motor strength present throughout Extrem Other: venous exam: No significant superficial varicosities or spider telangiectasias, minimal edema General: No clubbing, No cyanosis and No edema Psych Appearance: grossly normal Mental Status: mental status grossly normal Speech and movement: Normal speech and movement present Results Reviewed Results Reviewed: Brief summary of venous insufficiency testing is as follows: right great saphenous vein: Positive right small saphenous vein: negative right accessory vein: none present left great saphenous vein: Ablated left small saphenous vein: negative left accessory vein: none present Please note there is no evidence of any venous aneurysms or significant tortuosity Assessment & Plan Assessment & Plan (1) Varicose veins of left lower extremity with inflammation: Comment: 05/10/2024 - left great saphenous vein Cyanoacralate ablation Code(s): I83.12 - Varicose veins of left lower extremity with inflammation Category: Medical Plan: In short patient has done extremely well with left leg ablation. At the current time she would like to hold off on any intervention on the right lower extremity as she is relatively asymptomatic from this. We did discuss continued conservative measures including compression, elevation, exercise. She will follow up with us on an as-needed basis. Thank you for allowing us to assist in her care. Coding Level of Care Code Est Pt Level 4 (73801) Diagnoses Varicose veins of left lower extremity with inflammation I83.12
== END 2024-05-23 15:21 | disposition home or self-care (01) ==
PROVIDERS: PCP Internal Medicine; Visit Provider Surgery Vascular Surgery
DX: I83.12 Varicose veins of left lower extremity with inflammation (principal)
CPT/HCPCS: 99214

== ENCOUNTER → 2024-05-23 14:44 | Outpatient (BNVA) | payer OTHER, SELFPAY | PROVIDERS: PCP Internal Medicine; Visit Provider Surgery Vascular Surgery | DX: I83.12 Varicose veins of left lower extremity with inflammation (principal); Z98.890 Other specified postprocedural states | CPT/HCPCS: 99212 ==

== ENCOUNTER 2024-07-12 09:31 | Outpatient (REF) | payer OTHER, SELFPAY | END 2024-07-12 09:32 | disposition home or self-care (01) | LOC: HO.MAMMO 09:31 | PROVIDERS: PCP Internal Medicine; Visit Provider Internal Medicine | DX: Z12.31 Encounter for screening mammogram for malignant neoplasm of breast (principal) | CPT/HCPCS: 77063; 77067 ==

== ENCOUNTER → 2024-07-12 09:45 | Outpatient (BNV) | payer OTHER, SELFPAY | PROVIDERS: PCP Internal Medicine; Visit Provider Internal Medicine | DX: Z12.31 Encounter for screening mammogram for malignant neoplasm of breast (principal) | CPT/HCPCS: 77063; 77067 ==

== ENCOUNTER → 2024-08-05 09:49 | Outpatient (REF) | payer OTHER, SELFPAY ==
--- NOTE | 2024-08-05 09:52 | CA_ITS ---
Transthoracic Echocardiogram Patient (Last, First, Middle): Alejandra Quinones, Gender: Female Date of : 1940 Age: 84 Procedure Date: 08/05/2024 Procedure Type: Transthoracic Echocardiogram Location: OP Height: 149.86 cm Weight: 86.18 kg BSA: 1.80 m2 Heart Rate: bpm BP: 122 / 80 mmHg [employer] Driver: Referring MD: Joni Mercer MD Symptoms: I35.0 - Nonrheumatic aortic (valve) stenosis Study Quality: Fair ECG Rhythm: Sinus Conclusions: - The left ventricular systolic function is hyperdynamic. The visually estimated ejection fraction is >70%. - Overall suspect probably moderate, but no more than moderate to severe aortic stenosis. Findings Left Ventricle Normal left ventricular cavity size. There is moderately increased left ventricular wall thickness. The left ventricular systolic function is hyperdynamic. The visually estimated ejection fraction is >70%. There is no evidence of regional wall motion abnormalities. Evidence suggests grade I (mild) diastolic dysfunction. Right Ventricle Normal right ventricular cavity size and systolic function. Atria The left atrium is mildly dilated. The right atrium is normal in size. Aortic Valve There is moderate calcification of the aortic valve. The peak aortic velocity is 4.44 m/s with a calculated peak gradient of 79 mmHg. The mean gradient is 50 mmHg. The aortic valve area is 0.90 cm2. There is trace (trivial) aortic valve regurgitation. Difficult to assess aortic stenosis severity as the stroke volume is also quite high. At least some of the high gradients are related to the high stroke volume. Dimensionless index is 0.33 which indicates more of moderate aortic stenosis. On planimetry does not appear any worse than moderate stenosis. Mitral Valve The mitral valve appears normal. There is trace mitral valve regurgitation. There is no mitral valve stenosis. Pulmonic Valve The pulmonic valve is likely normal. Tricuspid Valve There is trace tricuspid valve regurgitation. There is no evidence of pulmonary hypertension. Great Vessels The asc aorta is normal in size. Venous The inferior vena cava is normal in size and collapses greater than 50% with inspiration. Pericardium/Pleural There is no evidence of pericardial effusion. Prior Study Comparison No significant change compared to prior study dated: 07/03/2023. Measurements 2D Linear Measurements IVSd: 1.36 0.6-0.9/0.6-1.0 cm LVIDd: 3.80 3.9-5.3/4.2-5.9 cm LVIDd Index: 2.11 2.4-3.2/2.2-3.1 cm/m2 LVIDs: 2.41 2.0-3.6 cm LVPWd: 1.32 0.7-1.1 cm Ao Root: 2.70 2.1-3.5 cm LA Diam: 3.80 2.7-3.8/3.0-4.0 cm LAIDs Index: 2.11 1.5-2.3 cm/m2 LV Mass: 225.91 67-162/88-224 g LV Mass Index: 125.51 43-95/49-115 g/m2 LVOT Diam: 1.90 3.0+(-)1.3 cm 2D Systolic Function EF 4C: 62.10 >55% EF 2C: 62.50 >55% EF BiP: 61.70 >55% Mitral Valve MV VTI: 0.44 MV Pk Johnie: 1.41 MV Mn Johnie: 0.92 MV Pk Grad: 8.00 MV Mn Grad: 4.00 MV Pk E: 0.89 MV PK A: 1.20 MV Decel Time: 212.00 E/A: 0.70 E'Lateral: 4.35 E'Medial: 4.68 E/E' Med: 19.00 E/E' Lat: 20.40 PHT: 62.00 MVA PHT: 3.55 MVA Continuity: 2.13 Decel Adams: 4.19 Aortic Valve AoV Pk Johnie: 4.44 AoV Mn Johnie: 3.35 AoV VTI: 1.04 AoV Pk Grad: 79.00 Aov Mn Grad: 50.00 GABRIELA Cont.VTI: 0.90 LVOT LVOT Pk Johnie: 1.45 LVOT Mn Johnie: 1.04 LVOT VTI: 0.33 LVOT Pk Grad: 8.00 LVOT Mn Grad: 5.00 LVOT Diam: 1.90 LVOT Area: 2.84 Diastolic Function MV Pk E: 0.89 MV Pk A: 1.20 E/A: 0.70 E'Medial: 4.68 E/E' Med: 19.00 E' Laterial: 4.35 E/E' Lat: 20.40 Right Ventricle TAPSE (mm): 29.00 TVS' Johnie: 17.00 Tricuspid Valve TR Pk Johnie: 2.86 TR Pk Grad: 33.00 RA Press: 3.00 RVSP: 36.00 Great Vessels Aorta Ao Root-2D: 2.70 2.0-3.7 cm Ao Asc: 2.80 2.1-3.4 cm Pulmonary Valve PV Pk Johnie: 1.43 Peak PV Grad: 8.00 Updated in Other Vendor System with Status of Final Joni Mercer MD electronically signed on 08/06/2024 3:31:22 PM with status of Final
== END ==
LOC: HO.CARD 09:49
PROVIDERS: PCP Internal Medicine; Visit Provider Internal Medicine
DX: I35.0 Nonrheumatic aortic (valve) stenosis (principal)
CPT/HCPCS: 93306

== ENCOUNTER → 2024-08-05 09:52 | Outpatient (BNV) | payer OTHER, SELFPAY | PROVIDERS: PCP Internal Medicine; Visit Provider Internal Medicine | DX: I35.0 Nonrheumatic aortic (valve) stenosis (principal); I35.8 Other nonrheumatic aortic valve disorders; I51.89 Other ill-defined heart diseases | CPT/HCPCS: 93306 ==

== ENCOUNTER 2024-08-14 14:40 | Outpatient (AMB) | payer OTHER, SELFPAY ==
[2024-08-14 14:43] VITALS: BP 128/68; PULSE 88; BMI 37.5
--- NOTE | 2024-08-14 14:43 | A.OFFVIS_ITS ---
Vital Signs 08/14/24 14:43 Height 5 ft Weight 191 lb 12.835 oz BMI 37.5 BP 128/68 Blood Pressure Location Lt brachial Position Sitting Pulse 88 Pulse Source Pulse Oximeter Intake Visit Reasons: 6m follow up Film Color Tester Required: Yes Film Color Tester Services: Film Color Tester Offered & Declined Accompanied by: Other Relationship Allergies No Known Allergies Allergy (Verified 05/23/24 15:02) Medication List - Last Reconciled 08/14/24 by Joni Mercer MD acetaminophen ER (Mapap Arthritis Pain) 650 mg PO Q8H 30 days [adult pullups As directed] alprazolam 0.25 mg PO ONCE aspirin 81 mg PO DAILY 90 days [bedpads As directed] blood pressure monitor As directed calcium carbonate-vitamin D3 600 mg-10 mcg (400 unit) 1 tab PO DAILY 90 days cholecalciferol (vitamin D3) 50 mcg PO DAILY 90 days [compression stochings As directed] disposable gloves As directed escitalopram oxalate (Lexapro) 20 mg PO QAM furosemide 20 mg PO DAILY PRN 7 days gabapentin 100 mg PO BEDTIME 90 days hydralazine 10 mg PO TID 90 days incontinence pad, liner, disp (Prevail Panty Liner pads) As directed lisinopril 10 mg PO DAILY meclizine 25 mg PO TID PRN 30 days metoprolol succinate ER (Toprol XL) 25 mg PO DAILY mirtazapine (Remeron) 7.5 mg PO BEDTIME omeprazole 20 mg PO DAILY 90 days [raised toilet seat As directed] rosuvastatin 20 mg PO DAILY 90 days [shower head As directed] [shower mat As directed] [walker As directed] [wipes As directed] HPI Comments Details: Alejandra returns for follow-up regarding aortic stenosis. Overall, she states she feels good. No cardiac symptoms whatsoever. Otherwise, she has got high blood pressure on medications. No specific concerns in that side. [facility] Medical History Mild recurrent major depression Right shoulder pain Colon cancer screening Non-rheumatic aortic stenosis Right ankle pain Left hip pain Bicytopenia Polyuria Long-term use of aspirin therapy Aortic valve stenosis CHRIS on CPAP Hypovitaminosis D GERD (gastroesophageal reflux disease) Depression with anxiety Pure hypercholesterolemia Osteopenia Essential hypertension Pernicious anemia Surgical History (Updated 08/08/24 @ 13:19 by Ashley Chaves RN) History of esophagogastroduodenoscopy (EGD) Hx of colonoscopy History of bilateral cataract extraction History of breast biopsy History of hysterectomy History of cholecystectomy Family History Father No problems noted. Mother Chronic mental illness CVD (cardiovascular disease) Hypertension Family/Other FH: depression Daughter No problems noted. Daughter No problems noted. Son No problems noted. Son No problems noted. Son No problems noted. Son No problems noted. 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 Cognitive needs: Yes Hearing needs: No Vision needs: Yes Review of Systems Const Denies weakness ENT Denies dizziness Card Denies chest pain, Denies chest pain with activity, Denies syncope, Denies rapid heart rate, Denies pedal edema, Denies edema, Denies leg edema, Denies lightheadedness, Denies palpitations, Denies dyspnea, Denies dyspnea on exertion and Denies orthopnea Resp Denies cough, Denies dyspnea and Denies dyspnea on exertion GI Denies hematochezia and Denies change in stool character Musc Denies abnormal gait, Denies muscle cramps, Denies muscle weakness, Denies numbness, Denies radiating pain into limb and Denies tingling Neuro Denies abnormal gait, Denies dizziness, Denies syncope, Denies numbness, Denies tingling and Denies weakness Endo Denies palpitations Physical Exam Vital Signs: Last Vital Signs Pulse 88 08/14/24 14:43 BP 128/68 08/14/24 14:43 BMI result Body Mass Index 37.5 Const General: comfortable and no acute distress Orientation/consciousness: patient oriented x3 HEENT Other: Unremarkable Head: Yes normal to inspection Neck Neck: Yes normal visual inspection Chest Chest palpation & inspection: normal inspection of the chest Resp Auscultation: clear to auscultation bilaterally Cardio Palpation: normal PMI Heart sounds: S1 normal heart sound present, S2 normal heart sound present, no gallops, Murmur heart sound present systolic III/ and at the right sternal border and no rubs GI Palpation (GI): Soft to palpation Back/Spine/Pelvis Other: unremarkable Skin General skin exam: no rashes or lesions noted Neuro General: patient oriented x3 Extrem General: Yes normal to inspection Psych Mental Status: mental status grossly normal Assessment & Plan Assessment & Plan (1) Non-rheumatic aortic stenosis: Code(s): I35.0 - Nonrheumatic aortic (valve) stenosis Category: Medical Plan: She has aortic stenosis but difficult to assess because of high stroke volume. In the most recent study, mean gradient is 50 mm Hg with a calculated valve area of 0.9 cm2. However, her stroke volume also is quite high and hence it is felt that that probably contributes a lot to the gradients. Her dimensionless index is rather 0.3 which is more on the moderate side. On planimetry, no more than moderate stenosis. Clinically, she has got absolutely no symptoms. We will continue to monitor this. Advised her to contact us with any concerns like angina or shortness of breath or dizziness. (2) Essential hypertension: Code(s): I10 - Essential (primary) hypertension Category: Medical Plan: On lisinopril, hydralazine, metoprolol. In the past, was on amlodipine but not taking it because of leg swelling. (3) CHRIS on CPAP: Code(s): G47.33 - Obstructive sleep apnea (adult) (pediatric); Z99.89 - Dependence on other enabling machines and devices Category: Medical Plan: Continue CPAP. Plan Discussed with family who came for appointment. Orders: Orders CA echo transthoracic complete 1 Year I35.0 - Nonrheumatic aortic (valve) stenosis Coding Level of Care Code Est Pt Level 4 (82542) Diagnoses Non-rheumatic aortic stenosis I35.0 Essential hypertension I10 CHRIS on CPAP G47.33; Z99.89
== END 2024-08-14 15:01 | disposition home or self-care (01) ==
PROVIDERS: PCP Internal Medicine; Visit Provider Internal Medicine
DX: I35.0 Nonrheumatic aortic (valve) stenosis (principal); I10 Essential (primary) hypertension; G47.33 Obstructive sleep apnea (adult) (pediatric); Z99.89 Dependence on other enabling machines and devices
CPT/HCPCS: 99214

== ENCOUNTER → 2024-08-14 14:40 | Outpatient (BNVA) | payer OTHER, SELFPAY | PROVIDERS: PCP Internal Medicine; Visit Provider Internal Medicine | DX: I35.0 Nonrheumatic aortic (valve) stenosis (principal); I10 Essential (primary) hypertension; G47.33 Obstructive sleep apnea (adult) (pediatric); Z99.89 Dependence on other enabling machines and devices | CPT/HCPCS: 99212 ==

== ENCOUNTER 2024-10-08 08:45 | Outpatient (REF) | payer OTHER, SELFPAY ==
[2024-10-08 08:58] LABS: MANUAL DIFF FLAG NO
[2024-10-08 09:42] LABS: Basophils Absolute Auto 0.1 X10*3/uL (0.0-0.2); Basophils Percent Auto 1.3 % (0-2); Eosinophils Absolute Auto 0.1 X10*3/uL (0.0-0.4); Eosinophils Percent Auto 1.9 % (0-4); Hematocrit 36.4 % (37.0-47.0); Imm Gran Abs Auto 0.01 X10*3/uL (0.00-0.03); Imm Gran Pct Auto 0.2 % (0.0-0.4); Lymphocytes Absolute Auto 2.1 X10*3/uL (1.2-4.9); Lymphocytes Percent Auto 44.5 % (20-40); Mean Corpuscular HGB Conc 30.2 g/dl (31.0-35.0); Mean Corpuscular Hemoglobin 25.5 pg (27.0-33.0); Mean Corpuscular Volume 84.3 fL (80.0-98.0); Mean Platelet Volume 10.1 fL (9.4-12.3); Monocytes Absolute Auto 0.5 X10*3/uL (0.1-1.2); Monocytes Percent Auto 9.6 % (2-11); Neutrophils Percent Auto 42.5 % (45-73); Platelet Count 261 X10*3/uL (160-400); Red Blood Count 4.32 X10*6/uL (4.20-5.50); Red Cell Distribution Width 15.4 % (11.0-16.0); White Blood Count 4.7 X10*3/uL (4.8-10.8)
[2024-10-08 10:35] LABS: Alanine Aminotransferase 9 U/L (0-31); Albumin Level 3.3 g/dL (3.5-5.0); Alkaline Phosphatase 97 U/L (39-117); Anion Gap 9 (12-20); Aspartate Amino Transferase 20 U/L (5-31); Bilirubin Total 0.4 mg/dL (0.0-1.0); Blood Urea Nitrogen 16 mg/dL (9-16); Carbon Dioxide 30 mmol/L (22-29); Chloride 110 mmol/L (96-108); Cholesterol 121 mg/dL (<200); Estimated Glomerular Filt Rate 57; Glucose Fasting 108 mg/dL (60-99); HDL Cholesterol 47 mg/dL (>40); Iron 40 mcg/dL (30-160); LDL Cholesterol Calculated 55 mg/dL (<100); Percent Iron Saturation 19 % (15-50); Potassium 4.5 mmol/L (3.3-5.1); Sodium 144 mmol/L (135-145); Total Iron Binding Capacity 210 mcg/dL (228-428); Total Protein 7.5 g/dL (6.5-8.0); Triglycerides 98 mg/dL (<150); Unsaturated Iron Binding 170 ug/dL; Vitamin D 25-OH Total 35.2 ng/mL (>30)
== END 2024-10-08 08:46 | disposition home or self-care (01) ==
LOC: HO.LAB 08:45
PROVIDERS: PCP Internal Medicine; Visit Provider Internal Medicine
DX: D64.9 Anemia, unspecified (principal); E55.9 Vitamin D deficiency, unspecified; E78.5 Hyperlipidemia, unspecified; M17.9 Osteoarthritis of knee, unspecified
CPT/HCPCS: 36415; 80053; 80061; 82306; 83540; 85025

== ENCOUNTER 2024-10-14 08:42 | Outpatient (AMB) | payer OTHER, SELFPAY ==
--- NOTE | 2024-10-14 09:00 | MHC.PC.OV ---
Vital Signs 10/14/24 09:01 Height 5 ft Weight 188 lb BMI 36.7 BP 126/68 Blood Pressure Location Lt brachial Position Sitting Intake Visit Reasons: Annual Exam Intake Note: Patient here for a physical exam Housekeeping Department Worker Required: Yes Housekeeping Department Worker Language: Towel Folder Name: Halle Bonilla MD Information Interpreted: non-clinical & clinical Accompanied by: COMMERCIAL LENDING RELATIONSHIP MANAGER Allergies No Known Allergies Allergy (Verified 10/14/24 09:11) Medication List - Last Reconciled 10/14/24 by Halle Bonilla MD acetaminophen ER (Mapap Arthritis Pain) 650 mg PO Q8H 30 days [adult pullups As directed] alprazolam 0.25 mg PO ONCE aspirin 81 mg PO DAILY 90 days [bedpads As directed] blood pressure monitor As directed calcium carbonate-vitamin D3 600 mg-10 mcg (400 unit) 1 tab PO DAILY 90 days cholecalciferol (vitamin D3) 50 mcg PO DAILY 90 days [compression stochings As directed] disposable gloves As directed escitalopram oxalate (Lexapro) 20 mg PO QAM furosemide 20 mg PO DAILY PRN 7 days gabapentin 100 mg PO BEDTIME 90 days hydralazine 10 mg PO TID 90 days incontinence pad, liner, disp (Prevail Panty Liner pads) As directed lisinopril 10 mg PO DAILY meclizine 25 mg PO TID PRN 30 days metoprolol succinate ER (Toprol XL) 25 mg PO DAILY mirtazapine (Remeron) 7.5 mg PO BEDTIME omeprazole 20 mg PO DAILY 90 days [raised toilet seat As directed] rosuvastatin 20 mg PO DAILY 90 days [shower head As directed] [shower mat As directed] [walker As directed] [wipes As directed] Tobacco use date assessed: 10/14/24 Fall risk assessment: 1 Fall in past year Last assessed Fall Risk: 10/14/24 Dental Screening Dental Screen Date: 10/14/24 Did you have a dental visit in the last 12 months?: Yes Did you have a dental problem in the last 6 months where you did not have access to dental care?: No Was dental information given to patient?: Patient has dentist HPI HPI Comments History of Present Illness Details The patient is an 84-year-old female presenting for a physical exam. She reports a history of mild major depressive disorder with a score of 6 on the patient health questionnaire, showing no acute symptoms of depression. Her prediabetes diagnosis was noted from recent lab tests indicating improved fasting glucose levels from 118 mg/dL to 108 mg/dL, which does not currently require pharmacological intervention. Her chronic conditions include hypertension and hyperlipidemia, both controlled with medications such as Lisinopril, Metoprolol, and Rosuvastatin. There's a presence of osteoarthritis affecting her lower extremities, causing difficulty in ambulation, though she has declined physical therapy or pain management interventions. The surgical history includes cataract surgery, a breast biopsy, hysterectomy in 1988, and cholecystectomy. A prior colonoscopy in 2020 identified tubular adenomas, but due to her age, no further colonoscopy is deemed necessary. Her vaccines are current with pneumonia and tetanus. Bone density screening is suggested, as it hasn't been done previously. The patient expresses no additional concerns and reports that her cholesterol levels are within normal limits. - Pneumonia vaccine up-to-date - Tetanus vaccine up-to-date (last in 2016) - Monitoring of fasting blood glucose due to history of prediabetes - Control of hypertension with Lisinopril and Metoprolol - Control of hyperlipidemia with Rosuvastatin - Regular screenings for hypertension, depression, and diabetes - Scheduled bone density scan as not previously done [facility] Medical History Mild recurrent major depression Right shoulder pain Colon cancer screening Non-rheumatic aortic stenosis Right ankle pain Left hip pain Bicytopenia Polyuria Long-term use of aspirin therapy Aortic valve stenosis CHRIS on CPAP Hypovitaminosis D GERD (gastroesophageal reflux disease) Depression with anxiety Pure hypercholesterolemia Osteopenia Essential hypertension Pernicious anemia Surgical History History of esophagogastroduodenoscopy (EGD) Hx of colonoscopy History of bilateral cataract extraction History of breast biopsy History of hysterectomy History of cholecystectomy Family History Father No problems noted. Mother Chronic mental illness CVD (cardiovascular disease) Hypertension Family/Other FH: depression Daughter No problems noted. Daughter No problems noted. Son No problems noted. Son No problems noted. Son No problems noted. Son No problems noted. 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 1. Little interest or pleasure in doing things: nearly every day 2. Feeling down, depressed, or hopeless: more than half the days 3. Trouble falling or staying asleep, or sleeping too much: not at all 4. Feeling tired or having little energy: several days 5. Poor appetite or overeating: not at all 6. Feeling bad about yourself - or that you are a failure or have let yourself or your family down: not at all 7. Trouble concentrating on things, such as reading the newspaper or watching television: not at all 8. Moving or speaking so slowly that other people could have noticed. Or the opposite - being so fidgety or restless that you have been moving around a lot more than usual: not at all 9. Thoughts that you would be better off or of hurting yourself in some way: not at all Total score: 6 Depression Screening Interpretation: Positive Depression Screening Follow-up: Existing condition, In treatment, Community Mental Health Worker F/U and Follow-up Visit Requested Depression Screening Done: Yes 19847 - PHQ-9 Billing: Yes Source: Developed by Drs. Antonio Medeiros, Cheyenne Colon, Thony Lam and colleagues, with an educational nacho from [employer]. Thrive Questionnaire Date Thrive assessed: 10/14/24 I am a: Patient What is your living situation today?: I have a steady place to live Within the past 12 months, did the food you bought not last and you didn't have the money to get more?: Never true Within the past 12 months, did you worry whether your food would run out before you got money to buy more?: Never true Do you have trouble paying for medicines?: No Do you have trouble getting transportation to medical appointments?: No Do you have trouble paying your heating and electricity bill?: No Do you have trouble taking care of your child, family member or friend?: I choose not to answer this question Do you have trouble with day-to-day activities such as bathing, preparing meals, shopping, managing finances, etc.?: No Are you currently unemployed and looking for a job?: No Are you interested in more education?: No Please select the resources that you would like help with: None Currently or been in a relationship where the following occur: No concerns reported THRIVE Score: 0 AUDIT C Alcohol Use Questionnaire (AUDIT-C) 1. How often do you have a drink containing alcohol?: Never Total Score: 0 Score Reviewed/Action Taken: No ONIEL-7 AMB Questionnaire ONIEL-7 Date ONIEL - 7 assessed: 10/14/24 Feeling nervous, anxious, or on edge: 1 = Several days Not being able to stop or control worryin = Not at all Worrying too much about different things: 0 = Not at all Trouble relaxin = Not at all Being so restless that it is hard to sit still: 0 = Not at all Becoming easily annoyed or irritable: 1 = Several days Feeling afraid as if something awful might happen: 0 = Not at all Total ONIEL-7 score (0-4 normal; 5-9 mild; 10-14 moderate; 15-21 severe): 2 Source: Developed by Drs. Antonio Medeiros, Cheyenne Colon, Thony Lam and colleagues, with an educational nacho from [employer]. ONIEL-7 Assessment Billing ONIEL-7 Assessment Tool: ONIEL-7 Assessment 87354 Review of Systems Const All systems reviewed & are unremarkable except as noted in HPI and below Card Denies chest pain at rest, Denies chest pain with activity, Denies edema, Denies irregular heart rhythm, Denies claudication, Denies dyspnea, Denies dyspnea on exertion, Denies orthopnea, Denies paroxysmal nocturnal dyspnea and Denies slow heart rate Resp Denies cough, Denies dyspnea and Denies dyspnea on exertion GI Denies abdominal pain, Denies change in bowel habits, Denies excessive flatus, Denies nausea and Denies vomiting Denies urinary incontinence, Denies urinary hesitancy and Denies urinary urgency Musc Denies abnormal gait, Denies atrophy, Denies deformity and Denies limited range of motion Skin/Breast Denies bleeding lesions, Denies changing lesions and Denies rash Neuro Denies abnormal gait, Denies behavioral changes, Denies confusion and Denies lack of coordination Psych Denies behavioral changes and Denies confusion Physical exam (Primary Care) Vital Signs: Last Vital Signs BP 126/68 10/14/24 09:01 BMI result Body Mass Index 36.7 Tobacco/Smoking Status: Tobacco use Status Tobacco use date assessed 10/14/24 10/14/24 09:05 Patient Tobacco Use Status Never used Tobacco 10/14/24 09:05 e-Cigarette/Vaping Use Never Used 10/14/24 09:05 PHQ-9: PHQ-9 Score PHQ-9: Total score 6 10/14/24 09:22 Depression Screening Interpretation: Positive Depression Screening Follow-up: Existing condition, In treatment, Community Mental Health Worker F/U and Follow-up Visit Requested Thrive Assessment: Date of Thrive Assessment Date Thrive assessed 10/14/24 10/14/24 09:05 Currently or been in a relationship where the following occur: No concerns reported Const General: No confusion Orientation/consciousness: patient oriented x3 and No confusion HENMT General nose exam: Normal external nose present and No nasal discharge present Face and sinus: Yes sinuses nontender Mouth: lip normal Eyes General: appearance normal, both eyes and all related structures Eyelids: Yes eyelids normal Conjunctivae: conjunctivae normal Neck Neck: Yes normal visual inspection and Yes supple Resp Effort & Inspection: normal respiratory effort Auscultation: clear to auscultation bilaterally Cardio Jugular venous distension: no JVD Rate: regular rate Rhythm: regular rhythm Heart sounds: S1 normal heart sound present and S2 normal heart sound present GI Inspection: Yes normal to inspection Palpation (GI): Soft to palpation and nontender Auscultation: normal bowel sounds Skin General skin exam: no rashes or lesions noted Neuro General: patient oriented x3, no focal motor deficits and No confusion Extrem General: Yes full ROM Psych Appearance: grossly normal Coding Level of Care Code Est Pt Level 3 (75777) Est Pt Prev Care >65y(75579) Diagnoses Physical exam Z00.00 Left leg pain M79.605 Mild recurrent major depression F33.0 Additional Codes ONIEL-7 Assessment Billing - ONIEL-7 Assessment Tool: ONIEL-7 Assessment 84816 ([id number]) PHQ-9 - 77707 - PHQ-9 Billing: Yes ([id number]) Time Spent (min) 32 Assessment & Plan Assessment & Plan (1) Physical exam: Code(s): Z00.00 - Encounter for general adult medical examination without abnormal findings Category: Medical (2) Left leg pain: Code(s): M79.605 - Pain in left leg Category: Medical (3) Mild recurrent major depression: Code(s): F33.0 - Major depressive disorder, recurrent, mild Category: Medical Plan During this wellness visit, attention is placed on chronic conditions such as minimal change major depressive disorder, prediabetes, hypertension, hyperlipidemia, and osteoarthritis. The current depressive state is mild and stable with existing medication. The improvement in prediabetes indicators, specifically fasting glucose, is noted. Hypertension and hyperlipidemia are controlled with medication adhering to her therapeutic plan. Her osteoarthritis significantly impacts her mobility; however, while she declines active interventions such as physical therapy, the need for further evaluation with a bone density scan is emphasized to rule out osteoporosis. Vaccination status remains current and additional screenings are considered appropriate. Patient was informed and verbally consented to the use of an ambient scribe for clinic note documentation during this visit. I discussed with the patient the management of her chronic conditions, including the stable mild depression and the improvements in her prediabetes. I explained that her blood glucose levels have improved, and medication for diabetes is not required presently. We reviewed her medications for hypertension and hyperlipidemia, which are under control. The patient was advised to consider a bone density scan due to age-related risks, and she was informed about the current vaccination status being up-to-date. Despite the osteoarthritis affecting her mobility, she opted not to pursue physical therapy or pain management interventions at this time. Follow-up plans were outlined to monitor chronic conditions and ensure regular screenings. Orders: Orders XR DEXA axial skeleton Today Z78.0 - Asymptomatic menopausal state Referrals Rheumatology Referral M79.605 - Pain in left leg Patient Instructions: - Continue current medications for depression, hypertension, and hyperlipidemia - Monitor blood glucose levels regularly - Schedule a bone density screening test - Maintain up-to-date vaccinations; next tetanus vaccine due in 2026 - Reach out if experiencing new symptoms or changes in health status - Report any worsening of mobility or pain immediately
[2024-10-14 09:01] VITALS: BP 126/68; BMI 36.7
== END 2024-10-14 09:27 | disposition home or self-care (01) ==
LOC: HO.HMCH 08:43
PROVIDERS: PCP Internal Medicine; Visit Provider Internal Medicine
DX: Z00.00 Encounter for general adult medical examination without abnormal findings (principal); M79.605 Pain in left leg; F33.0 Major depressive disorder, recurrent, mild

== ENCOUNTER → 2024-10-14 08:42 | Outpatient (BNVA) | payer OTHER, SELFPAY | PROVIDERS: PCP Internal Medicine; Visit Provider Internal Medicine | DX: Z00.00 Encounter for general adult medical examination without abnormal findings (principal); M79.605 Pain in left leg; F33.0 Major depressive disorder, recurrent, mild | CPT/HCPCS: 96127; 99397 ==

== ENCOUNTER 2024-11-08 08:26 | Outpatient (REF) | payer OTHER, SELFPAY ==
--- NOTE | ~2024-11-08 | MM_ITS ---
EXAMINATION: DXA BONE DENSITY AXIAL HISTORY: Z78.0 - Asymptomatic menopausal state TECHNIQUE: [employer] Dual energy absorptiometry (DEXA) of the lumbar spine, total left hip, and femoral neck was performed. COMPARISON: Comparison is made with the prior examination dated 01/20/2020. FINDINGS: The bone mineral density of the lumbar spine is 1.111 with a T-score of -0.5, and a Z-score of 0.6. This is indicative of normal bone mineral density. This represents a BMD change of 4.1% compared to the prior exam. This is statistically significant. The bone mineral density of the left total hip is 0.959 with a T-score of -0.4, and a Z-score of 1.2. This is indicative of normal bone mineral density. This represents a BMD change of -2.9% compared to the prior exam. This is not statistically significant. The bone mineral density of the left femoral neck is 0.887 with a T-score of -1.1, and a Z-score of 0.6. This is indicative of osteopenia. This represents a BMD change of 2.4% compared to the prior exam. FRACTURE RISK: The FRAX index suggests a ten year probability of major osteoporotic fracture of 6.3%, and of hip fracture 1.3%. MM/XR DEXA axial skeleton IMPRESSION: Based on bone mineral density, and according to World Health Organization (WHO) criteria, the diagnosis is consistent with osteopenia. All bone density values are in grams per centimeter squared (g/cm2). Statistically, 68% of repeat scans fall within 1 SD (+/- 0.010 g/cm2 for AP spine L1-L4) and 1 SD (+/- 0.012 g/cm2 for femur total) FRAX is a trademark of the [employer]'s [place] [facility] [employer], a World Health Organization (WHO) Collaborating Center. Electronically signed by: Antonio Gardner MD 11/08/2024 09:13 AM EDT
== END 2024-11-08 08:27 | disposition home or self-care (01) ==
LOC: HO.MAMMO 08:26
PROVIDERS: PCP Internal Medicine; Visit Provider Internal Medicine
DX: Z13.820 Encounter for screening for osteoporosis (principal); Z78.0 Asymptomatic menopausal state
CPT/HCPCS: 77080

== ENCOUNTER → 2024-11-08 08:45 | Outpatient (BNV) | payer OTHER, SELFPAY | PROVIDERS: PCP Internal Medicine; Visit Provider Radiology Diagnostic Radiology | DX: E28.39 Other primary ovarian failure (principal) | CPT/HCPCS: 77080 ==

== ENCOUNTER 2025-03-07 08:44 | Outpatient (REF) | payer OTHER, SELFPAY ==
[2025-03-07 09:00] LABS: MANUAL DIFF FLAG NO
[2025-03-07 09:13] LABS: Hematocrit 34.3 % (37.0-47.0); Hemoglobin 10.3 g/dl (12.0-16.0); Imm Gran Abs Auto 0.01 X10*3/uL (0.00-0.03); Imm Gran Pct Auto 0.2 % (0.0-0.4); Lymphocytes Absolute Auto 2.4 X10*3/uL (1.2-4.9); Mean Corpuscular HGB Conc 30.0 g/dl (31.0-35.0); Mean Corpuscular Hemoglobin 24.7 pg (27.0-33.0); Mean Corpuscular Volume 82.3 fL (80.0-98.0); NRBC Abs Auto 0.000 X10*3/uL (0.0-0.012); NRBC Pct Auto 0.0 /100WBC (0.0-0.2); Platelet Count 216 X10*3/uL (160-400); Red Blood Count 4.17 X10*6/uL (4.20-5.50); White Blood Count 4.4 X10*3/uL (4.8-10.8)
[2025-03-07 09:44] LABS: Alanine Aminotransferase 10 U/L (0-31); Albumin Level 3.9 g/dL (3.5-5.0); Alkaline Phosphatase 70 U/L (39-117); Anion Gap 12 (12-20); Aspartate Amino Transferase 24 U/L (5-31); Blood Urea Nitrogen 18 mg/dL (9-16); Calcium 9.0 mg/dL (8.4-10.2); Carbon Dioxide 30 mmol/L (22-29); Chloride 106 mmol/L (96-108); Cholesterol 131 mg/dL (<200); Estimated Glomerular Filt Rate 58; HDL Cholesterol 65 mg/dL (>40); Iron 36 mcg/dL (30-160); Percent Iron Saturation 12 % (15-50); Potassium 4.7 mmol/L (3.3-5.1); Sodium 143 mmol/L (135-145); Total Iron Binding Capacity 302 mcg/dL (228-428); Total Protein 7.4 g/dL (6.5-8.0); Triglycerides 77 mg/dL (<150); Unsaturated Iron Binding 266 ug/dL
[2025-03-07 10:12] LABS: Folate 10.2 ng/mL (> or = 4.0); Vitamin B12 175 pg/mL (200-900)
== END 2025-03-07 08:45 | disposition home or self-care (01) ==
LOC: HO.LAB 08:44
PROVIDERS: PCP Internal Medicine; Visit Provider Internal Medicine
DX: E53.8 Deficiency of other specified B group vitamins (principal); D64.9 Anemia, unspecified; E78.5 Hyperlipidemia, unspecified; E55.9 Vitamin D deficiency, unspecified; R73.02 Impaired glucose tolerance (oral)
CPT/HCPCS: 36415; 80053; 80061; 82306; 82607; 82746; 83540; 85025

== ENCOUNTER 2025-03-10 09:41 | Outpatient (REF) | payer OTHER, SELFPAY ==
[2025-03-13 04:53] LABS: Intrinsic Factor Antibodies Negative (Negative)
== END 2025-03-10 09:42 | disposition home or self-care (01) ==
LOC: HO.LAB 09:41
PROVIDERS: PCP Internal Medicine; Visit Provider Internal Medicine
DX: E53.8 Deficiency of other specified B group vitamins (principal); I10 Essential (primary) hypertension; I35.0 Nonrheumatic aortic (valve) stenosis; F33.0 Major depressive disorder, recurrent, mild; K21.9 Gastro-esophageal reflux disease without esophagitis; G47.33 Obstructive sleep apnea (adult) (pediatric); D75.89 Other specified diseases of blood and blood-forming organs; D51.0 Vitamin B12 deficiency anemia due to intrinsic factor deficiency; Z79.82 Long term (current) use of aspirin; Z79.899 Other long term (current) drug therapy; Z99.89 Dependence on other enabling machines and devices
CPT/HCPCS: 36415; 83516; 86340; 96127; 99212

== ENCOUNTER 2025-03-10 09:41 | Outpatient (AMB) | payer OTHER, SELFPAY ==
[2025-03-10 09:45] VITALS: BP 126/60; PULSE 78; RESP 18; O2SAT 93; BMI 38.4
--- NOTE | 2025-03-10 09:45 | A.OFFPC_ITS ---
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 Medium compression 20-30 mm. Knee-high. As Directed [compression stochings As directed] CPAP As directed disposable gloves As directed escitalopram oxalate (Lexapro) 20 mg PO QAM furosemide 20 mg PO DAILY PRN 7 days gabapentin 100 mg PO BEDTIME 90 days hydralazine 10 mg PO TID 90 days incontinence pad, liner, disp (Prevail Panty Liner pads) As directed lisinopril 10 mg PO DAILY meclizine 25 mg PO TID PRN 30 days metoprolol succinate ER (Toprol XL) 25 mg PO DAILY mirtazapine (Remeron) 7.5 mg PO BEDTIME omeprazole 20 mg PO DAILY 90 days [Orthopedic shoes As directed] [raised toilet seat As directed] rosuvastatin 20 mg PO DAILY 90 days [shower head As directed] [shower mat As directed] [walker As directed] [wipes As directed] Tobacco use date assessed: 03/10/25 Fall risk assessment: 2 + Falls in past year Last assessed Fall Risk: 03/10/25 Dental Screening Dental Screen Date: 03/10/25 Did you have a dental visit in the last 12 months?: Yes Did you have a dental problem in the last 6 months where you did not have access to dental care?: No Was dental information given to patient?: Patient has dentist HPI HPI Comments History of Present Illness Details The patient is an 84-year-old female presenting with hypertension and anemia. Her hypertension is currently well-controlled, with excellent blood pressure readings today. The anemia has been stable, with hemoglobin levels slightly decreasing from 10.8 to 10.3, but this change is not considered significant. The patient has a history of biscytopenia, with stable white blood cell counts and normal platelet levels. The patient has a documented vitamin B12 deficiency, with levels at 175, which is below the normal range of over 200. She reports fatigue, which may be related to the low B12 levels. The patient has not been consuming much meat, which could contribute to the deficiency. The patient has a history of aortic stenosis, with a recent echocardiogram in July showing moderate stenosis and an ejection fraction of 70%. She was discharged from cardiology as her condition was stable at that time. The patient is also being treated for depression and insomnia, with medications including escitalopram and remeron. She continues to follow up with psychiatry for her mental health management. The patient has sleep apnea and uses a CPAP machine, although there have been issues with obtaining a new machine. A sleep study was conducted over a year ago, and a new study may be needed to expedite the approval of a home machine. [facility] Medical History (Updated 03/10/25 @ 10:16 by Halle Bonilla MD) Bicytopenia Mild recurrent major depression Right shoulder pain Colon cancer screening Non-rheumatic aortic stenosis Right ankle pain Left hip pain Polyuria Long-term use of aspirin therapy Aortic valve stenosis CHRIS on CPAP Hypovitaminosis D GERD (gastroesophageal reflux disease) Depression with anxiety Pure hypercholesterolemia Osteopenia Essential hypertension Pernicious anemia Surgical History History of esophagogastroduodenoscopy (EGD) Hx of colonoscopy History of bilateral cataract extraction History of breast biopsy History of hysterectomy History of cholecystectomy Family History Father No problems noted. Mother Chronic mental illness CVD (cardiovascular disease) Hypertension Family/Other FH: depression Daughter No problems noted. Daughter No problems noted. Son No problems noted. Son No problems noted. Son No problems noted. Son No problems noted. 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 1. Little interest or pleasure in doing things: nearly every day 2. Feeling down, depressed, or hopeless: more than half the days 3. Trouble falling or staying asleep, or sleeping too much: not at all 4. Feeling tired or having little energy: several days 5. Poor appetite or overeating: not at all 6. Feeling bad about yourself - or that you are a failure or have let yourself or your family down: not at all 7. Trouble concentrating on things, such as reading the newspaper or watching television: not at all 8. Moving or speaking so slowly that other people could have noticed. Or the opposite - being so fidgety or restless that you have been moving around a lot more than usual: not at all 9. Thoughts that you would be better off or of hurting yourself in some way: not at all Total score: 6 Depression Screening Interpretation: Positive Depression Screening Follow-up: Existing condition, In treatment, Community Mental Health Worker F/U and Follow- up Visit Requested Depression Screening Done: Yes 14185 - PHQ-9 Billing: Yes Source: Developed by Drs. Antonio Medeiros, Cheyenne Colon, Thony Lam and colleagues, with an educational nacho from [employer]. Thrive Questionnaire Date Thrive assessed: 03/10/25 I am a: Patient What is your living situation today?: I have a steady place to live Within the past 12 months, did the food you bought not last and you didn't have the money to get more?: Never true Within the past 12 months, did you worry whether your food would run out before you got money to buy more?: Never true Do you have trouble paying for medicines?: No Do you have trouble getting transportation to medical appointments?: No Do you have trouble paying your heating and electricity bill?: No Do you have trouble taking care of your child, family member or friend?: I choose not to answer this question Do you have trouble with day-to-day activities such as bathing, preparing meals, shopping, managing finances, etc.?: No Are you currently unemployed and looking for a job?: No Are you interested in more education?: No Please select the resources that you would like help with: None Currently or been in a relationship where the following occur: No concerns reported THRIVE Score: 0 AUDIT C Alcohol Use Questionnaire (AUDIT-C) 1. How often do you have a drink containing alcohol?: Never 3. How often do you have six or more drinks on one occasion?: Never Total Score: 0 Score Reviewed/Action Taken: No ONIEL-7 AMB Questionnaire ONIEL-7 Date ONIEL - 7 assessed: 03/10/25 Feeling nervous, anxious, or on edge: 1 = Several days Not being able to stop or control worryin = Not at all Worrying too much about different things: 0 = Not at all Trouble relaxin = Not at all Being so restless that it is hard to sit still: 0 = Not at all Becoming easily annoyed or irritable: 1 = Several days Feeling afraid as if something awful might happen: 0 = Not at all Total ONIEL-7 score (0-4 normal; 5-9 mild; 10-14 moderate; 15-21 severe): 2 Source: Developed by Drs. Antonio Medeiros, Cheyenne Colon, Thony Lam and colleagues, with an educational nacho from [employer]. ONIEL-7 Assessment Billing ONIEL-7 Assessment Tool: ONIEL-7 Assessment 62649 Review of Systems Const All systems reviewed & are unremarkable except as noted in HPI and below Card Denies chest pain at rest, Denies chest pain with activity, Denies edema, Denies irregular heart rhythm, Denies claudication, Denies dyspnea, Denies dyspnea on exertion, Denies orthopnea, Denies paroxysmal nocturnal dyspnea and Denies slow heart rate Resp Denies cough, Denies dyspnea and Denies dyspnea on exertion GI Denies abdominal pain, Denies change in bowel habits, Denies excessive flatus, Denies nausea and Denies vomiting Physical exam (Primary Care) Vital Signs: Last Vital Signs Pulse 78 03/10/25 09:45 Resp 18 03/10/25 09:45 BP 126/60 03/10/25 09:45 Pulse Ox 93 03/10/25 09:45 Oxygen Delivery Method Room Air 03/10/25 09:45 BMI result Body Mass Index 38.4 BMI Assessment/Plan discussion: High BMI High, discussed plan: lifestyle, weight reduction, dietary and physical activity Tobacco/Smoking Status: Tobacco use Status Tobacco use date assessed 03/10/25 03/10/25 09:53 Patient Tobacco Use Status Never used Tobacco 03/10/25 09:53 e-Cigarette/Vaping Use Never Used 03/10/25 09:53 PHQ-9: PHQ-9 Score PHQ-9: Total score 6 03/10/25 09:53 Depression Screening Interpretation: Positive Depression Screening Follow-up: Existing condition, In treatment, Community Mental Health Worker F/U and Follow- up Visit Requested Thrive Assessment: Date of Thrive Assessment Date Thrive assessed 03/10/25 03/10/25 09:53 Currently or been in a relationship where the following occur: No concerns repo rted Resp Effort & Inspection: normal respiratory effort Auscultation: clear to auscultation bilaterally Cardio Jugular venous distension: no JVD Rate: regular rate Rhythm: regular rhythm Heart sounds: Murmur heart sound present systolic Extrem General: Yes full ROM Coding Level of Care Code Est Pt Level 4 (20906) Complex EM visit Add On G2211 Diagnoses Essential hypertension I10 Non-rheumatic aortic stenosis I35.0 Mild recurrent major depression F33.0 Gastroesophageal reflux disease, unspecified whether esophagitis present K21.9 Esophagitis presence: esophagitis presence not specified CHRIS on CPAP G47.33; Z99.89 Bicytopenia D75.89 Pernicious anemia D51.0 Additional Codes ONIEL-7 Assessment Billing - ONIEL-7 Assessment Tool: ONIEL-7 Assessment 49841 ([id number]) PHQ-9 - 57871 - PHQ-9 Billing: Yes ([id number]) Time Spent (min) 23 Assessment & Plan Assessment & Plan (1) Essential hypertension: Code(s): I10 - Essential (primary) hypertension Category: Medical (2) Non-rheumatic aortic stenosis: Code(s): I35.0 - Nonrheumatic aortic (valve) stenosis Category: Medical (3) Mild recurrent major depression: Code(s): F33.0 - Major depressive disorder, recurrent, mild Category: Medical (4) GERD (gastroesophageal reflux disease): Code(s): K21.9 - Gastro-esophageal reflux disease without esophagitis Category: Medical Qualifiers: Esophagitis presence: esophagitis presence not specified Qualified Code(s): K21.9 - Gastro-esophageal reflux disease without esophagitis (5) CHRIS on CPAP: Code(s): G47.33 - Obstructive sleep apnea (adult) (pediatric); Z99.89 - Dependence on other enabling machines and devices Category: Medical (6) Bicytopenia: Code(s): D75.89 - Other specified diseases of blood and blood-forming organs Category: Medical (7) Pernicious anemia: Code(s): D51.0 - Vitamin B12 deficiency anemia due to intrinsic factor deficiency Category: Medical Plan The patient will continue monitoring her hypertension, which is currently well- controlled. For anemia, further evaluation of vitamin levels is necessary, and vitamin injections are recommended due to the deficiency. The patient should follow up with cardiology for her aortic stenosis, given the presence of a heart murmur and previous echocardiogram findings. Management of depression and insomnia will continue with current medications, and psychiatric follow-up is advised. For sleep apnea, efforts to obtain a new CPAP machine should be pursued, and a repeat sleep study may be necessary to facilitate this process. Patient was informed and verbally consented to the use of an ambient scribe for clinic note documentation during this visit. Orders: Orders Parietal Cell Antibody Today E53.8 - Deficiency of other specified B group vitamins RT home sleep study Today G47.33 - Obstructive sleep apnea (adult) (pediatric), Z99.89 - Dependence on other enabling machines and devices Intrinsic Factor Antibodies Today E53.8 - Deficiency of other specified B group vitamins Medications: New cyanocobalamin (vitamin B-12) 1,000 mcg IM QMONTH 1 mL 3RF 1 month E53.8 - Deficiency of other specified B group vitamins syringe with needle (Myoonet Luer Slip Syringe-Needle) Use 1 syringe once a month 1 ea 3RF b12 injection E53.8 - Deficiency of other specified B group vitamins
== END 2025-03-10 10:18 | disposition home or self-care (01) ==
LOC: HO.HMCH 09:42
PROVIDERS: PCP Internal Medicine; Visit Provider Internal Medicine
DX: I10 Essential (primary) hypertension (principal); I35.0 Nonrheumatic aortic (valve) stenosis; F33.0 Major depressive disorder, recurrent, mild; K21.9 Gastro-esophageal reflux disease without esophagitis; G47.33 Obstructive sleep apnea (adult) (pediatric); Z99.89 Dependence on other enabling machines and devices; D75.89 Other specified diseases of blood and blood-forming organs; D51.0 Vitamin B12 deficiency anemia due to intrinsic factor deficiency

== ENCOUNTER 2025-04-10 10:43 | Outpatient (REF) | payer OTHER, SELFPAY ==
--- NOTE | ~2025-04-10 | XR_ITS ---
EXAMINATION: XR SHOULDER, LEFT CLINICAL INFORMATION: M25.512 - Pain in left shoulder COMPARISON: None available. TECHNIQUE: AP external rotation, Grashey, scapular Y, and axillary views of the left shoulder. FINDINGS: Mild degenerative changes are present in the AC joint. There is no AC joint separation. However, there appears to be a transverse fracture involving the middle diaphysis of the left clavicle with approximately 2 cm overlap. There is downward displacement of the clavicle distal to the fracture by greater than one full shaft width. Mild degenerative irregularity is noted of glenoid. No other abnormalities are seen. XR/XR shoulder LT min 2V IMPRESSION: There is a fracture of the middle third diaphysis of the left clavicle with full shaft width downward displacement of clavicle distal fracture and up to 2 cm overlap. Electronically signed by: Sal Park MD 04/10/2025 01:19 PM EDT
--- NOTE | ~2025-04-10 | XR_ITS ---
Exam: X-ray, bilateral knees.XR KNEE 3 VIEWS BILATERAL TECHNIQUE: Three views lower extremity joint, bilateral knees INDICATION: Chronic knee pain COMPARISON: July 07, 2023 FINDINGS: RIGHT KNEE: There is moderate narrowing of the medial joint space. There is mild to moderate narrowing of the lateral patellofemoral joint space. There are tricompartmental marginal osteophytes and probably a central osteophyte involving the left side of the medial femoral condyle. There is no joint effusion. There is mild medial subluxation of distal femur at the joint. LEFT KNEE: There is severe narrowing of the medial compartment and moderate medial subluxation of distal femur. There are tricompartmental marginal osteophytes. There is no joint effusion. XR/XR Knee Alek 3V IMPRESSION: Right knee: Moderate osteoarthritis with stable joint space narrowing. Left knee: Severe osteoarthritis with stable joint space narrowing. Electronically signed by: Sal Park MD 04/10/2025 01:22 PM EDT
== END 2025-04-10 10:44 | disposition home or self-care (01) ==
LOC: HO.XRAY 10:43
PROVIDERS: PCP Internal Medicine; Visit Provider Internal Medicine Rheumatology
DX: M17.0 Bilateral primary osteoarthritis of knee (principal); M25.512 Pain in left shoulder
CPT/HCPCS: 73030; 73562; 99202

== ENCOUNTER 2025-04-10 10:43 | Outpatient (AMB) | payer OTHER, SELFPAY ==
--- NOTE | 2025-04-10 10:50 | A.OFFVIS_ITS ---
Vital Signs 04/10/25 10:51 Weight 197 lb 1.492 oz BP 100/80 Blood Pressure Location Lt brachial Position Sitting Pulse 74 Pulse Source Pulse Oximeter Pulse Oximetry (%) 97 Oxygen Delivery Method Room Air Intake Visit Reasons: pain left leg Intake Note: Patient presents for left leg joint pain. Metalsmith Apprentice Services: Metalsmith Apprentice Present Metalsmith Apprentice Name: Yu CAO Information Interpreted: non-clinical & clinical Accompanied by: PAPERHANGER AND PAINTER Allergies No Known Allergies Allergy (Verified 04/10/25 10:54) HPI HPI pain left leg: Details: New patient evaluation for left leg pain. Indonesian speaking patient. PAPERHANG[facility] AND [facility] She has had pain in left knee for 20 years. Difficulties with walking. She was unable to complete PT due to increase pain after sessions. She tried physical therapy a few months ago. She has to rest when pain comes on to relieve pain. Left knee locks up. Pain is minimal in right knee. Uses a cane and walker. She has not tried brace. Tylenol 1300mg BID ineffective. Takes gabapentin 100mg qhs ineffective. Gabapentin in the morning caused increased somnolence. Ibuprofen and diclofenac gel was ineffective. She was told to avoid NSAIDs. Failed cortisone injections in the past. She has seen orthopedic surgeon who told her that surgery is not advised because of the increase pain she would have experienced after surgery. She has been experiencing left shoulder pain for few months. No triggering event. She has difficulty using her left shoulder. She is unable to lift her arm. She has not self medicating. [facility] Medical History (Updated 04/10/25 @ 12:31 by Salvador Loo MD) Bicytopenia Mild recurrent major depression Right shoulder pain Colon cancer screening Non-rheumatic aortic stenosis Right ankle pain Left hip pain Polyuria Long-term use of aspirin therapy Aortic valve stenosis CHRIS on CPAP Hypovitaminosis D GERD (gastroesophageal reflux disease) Depression with anxiety Pure hypercholesterolemia Osteopenia Essential hypertension Pernicious anemia Surgical History History of esophagogastroduodenoscopy (EGD) Hx of colonoscopy History of bilateral cataract extraction History of breast biopsy History of hysterectomy History of cholecystectomy Family History Father No problems noted. Mother Chronic mental illness CVD (cardiovascular disease) Hypertension Family/Other FH: depression Daughter No problems noted. Daughter No problems noted. Son No problems noted. Son No problems noted. Son No problems noted. Son No problems noted. 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 Left shoulder abduction 90 degrees actively, passive range of motion abduction 120 degrees. She is able to internally rotate and externally rotate left shoulder. Left knee suprapatellar effusion present. Tender to palpate medial joint line of left knee. She has no joint tenderness of right knee. Bony hypertrophy of bilateral knees present. Right knee flexion 45 degrees, left knee flexion 30 degrees. She requires assistance to get up from exam table lying down to seated position. Results Reviewed Results Reviewed: Labs reviewed in expanse. Imaging reviewed in expanse. Assessment & Plan Assessment & Plan (1) Osteoarthritis of knees, bilateral: Comment: Left knee pain > right knee pain. X-rays from May 2023 reveal severe medial joint space narrowing of left knee with moderate medial joint space narrowing of right knee. We discussed conservative management. She is on low- dose gabapentin at bedtime. Failed Tylenol, ibuprofen, diclofenac gel and cortisone injection. She was unable to tolerate physical therapy due to increased pain. She is not a candidate for surgery per patient. We discussed optimizing gabapentin dose to treat knee pain from osteoarthritis. We also discussed considering trying hyaluronic acid injection. She had painful experiences with cortisone injections in the past. If she were to have a hyaluronic acid injection, I would use anesthesia with lidocaine prior to hyaluronic acid injection. Code(s): M17.0 - Bilateral primary osteoarthritis of knee Category: Medical Plan: Increase gabapentin to 300 mg q.h.s. if she does not find benefit in 2 weeks, she will call office. I will then start the PA process for Euflexxa left knee only. Left hinged brace prescribed Return to clinic in 1-2 months (2) Left shoulder pain: Comment: Differential diagnosis includes rotator cuff tendinopathy versus away. Code(s): M25.512 - Pain in left shoulder Category: Medical Plan: X-ray ordered PT ordered to improve range of motion Orders: Orders XR Knee Alek 3V Today M17.0 - Bilateral primary osteoarthritis of knee XR shoulder LT min 2V Today M25.512 - Pain in left shoulder PT Evaluation and Treatment Today M25.512 - Pain in left shoulder Medications: New gabapentin 300 mg PO BEDTIME 30 caps 5RF leg brace (Knee Support Brace) As directed L knee hinge brace Dx: knee osteoarthritis 1 ea 0RF leg brace (Knee Support Brace) As directed R knee hinge brace Dx: knee osteoarthritis 1 ea 0RF leg brace (Knee Support Brace) As directed L knee hinge brace Dx: knee osteoarthritis 1 ea 0RF Discontinued gabapentin Discontinued Reason: Doctor's Order 100 mg PO BEDTIME 90 days 90 caps 1RF Coding Level of Care Code New Pt Level 4 (70225) Complex EM visit Add On G2211 Diagnoses Osteoarthritis of knees, bilateral M17.0 Left shoulder pain M25.512
[2025-04-10 10:51] VITALS: BP 100/80; PULSE 74; O2SAT 97
== END 2025-04-10 11:52 | disposition home or self-care (01) ==
LOC: HO.RHES 10:44
PROVIDERS: PCP Internal Medicine; Visit Provider Internal Medicine Rheumatology
DX: M17.0 Bilateral primary osteoarthritis of knee (principal); M25.512 Pain in left shoulder
CPT/HCPCS: 99204; G2211

== ENCOUNTER → 2025-04-10 12:16 | Outpatient (BNV) | payer OTHER, SELFPAY | PROVIDERS: PCP Internal Medicine; Visit Provider Radiology Diagnostic Radiology | DX: M17.0 Bilateral primary osteoarthritis of knee (principal); S42.022A Displaced fracture of shaft of left clavicle, initial encounter for closed fracture | CPT/HCPCS: 73030; 73562 ==

== ENCOUNTER 2025-04-22 13:55 | Outpatient (AMB) | payer OTHER, SELFPAY ==
--- NOTE | 2025-04-22 14:16 | MHC.OFFVIS ---
Vital Signs 04/22/25 14:20 Height 5 ft Weight 196 lb BMI 38.3 Handedness Right Intake Visit Reasons: FC-unspecified part of LT clavicle, close fracture Intake Note: Alejandra is a 84 year old right hand dominant female who presents today for a evaluation of her left shoulder injury, DOI 03/31/25. Patient states that she lost her balance when she was near the sink and she does have history of vertigo. She states that her pain is very strong and it is located on the lateral aspect of the shoulder. Patient is taking tylenol and gabapentin that was prescribed by rheumatology. . IMPRESSION: There is a fracture of the middle third diaphysis of the left clavicle with full shaft width downward displacement of clavicle distal fracture and up to 2 cm overlap. Accompanied by: HEALTH SCIENCE WRITER Allergies No Known Allergies Allergy (Verified 04/22/25 14:20) HPI HPI FC-unspecified part of LT clavicle, close fracture: Details: Ms. Quinones is an 84-year-old right-hand dominant female who presents to the office today for evaluation of a left shoulder injury that she sustained on 03/31/2025. Patient reports that she lost her balance when she was standing near the sink and landed on her left shoulder. Patient reports that she has a history of vertigo. Her pain is located along the lateral aspect of the shoulder. She has been taking Tylenol and gabapentin which was prescribed by Rheumatology with mild relief. Patient had x-rays that were-06-24 of the left revealed a left clavicle fracture. [facility] Medical History (Updated 04/10/25 @ 16:14 by Salvador Loo MD) Bicytopenia Mild recurrent major depression Right shoulder pain Colon cancer screening Non-rheumatic aortic stenosis Right ankle pain Left hip pain Polyuria Long-term use of aspirin therapy Aortic valve stenosis CHRIS on CPAP Hypovitaminosis D GERD (gastroesophageal reflux disease) Depression with anxiety Pure hypercholesterolemia Osteopenia Essential hypertension Pernicious anemia Surgical History History of esophagogastroduodenoscopy (EGD) Hx of colonoscopy History of bilateral cataract extraction History of breast biopsy History of hysterectomy History of cholecystectomy Family History Father No problems noted. Mother Chronic mental illness CVD (cardiovascular disease) Hypertension Family/Other FH: depression Daughter No problems noted. Daughter No problems noted. Son No problems noted. Son No problems noted. Son No problems noted. Son No problems noted. 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) Alcohol intake: never Patient Tobacco Use Status: Never used Tobacco e-Cigarette/Vaping Use: Never Used Second Hand Smoke Exposure: No service: No Current occupational status: disabled Current occupation: rt hand Cognitive needs: Yes Hearing needs: No Vision needs: Yes Review of Systems Const All systems reviewed & are unremarkable except as noted in HPI and below Physical Exam Vital Signs: BMI result Body Mass Index 38.3 Const General: cooperative, healthy appearing and no acute distress Resp Effort & Inspection: normal respiratory effort and able to speak in complete sentences Extrem Other: Left shoulder mild deformity noted over the middle of the left clavicle at the fracture site. Skin is intact. No skin tenting. No evidence of open fracture. This is accompanied by tenderness to palpation. She is able to demonstrate 100 degrees of forward flexion and abduction. NVI. Psych Appearance: grossly normal Mental Status: mental status grossly normal Attitude: cooperative Assessment & Plan Assessment & Plan (1) Fracture of left clavicle: Code(s): S42.002A - Fracture of unspecified part of left clavicle, initial encounter for closed fracture Category: Medical Plan Ms. Quinones is an 84-year-old right-hand dominant female who presents to the office today for evaluation of a left shoulder injury that she sustained on 03/31/2025. Patient reports that she lost her balance when she was standing near the sink and landed on her left shoulder. Patient reports that she has a history of vertigo. Her pain is located along the lateral aspect of the shoulder. She has been taking Tylenol and gabapentin which was prescribed by Rheumatology with mild relief. Patient had x-rays that were-06-24 of the left revealed a left clavicle fracture. While the patient is in the office today I have recommended physical Therapy. To begin working on gentle range of motion. Patient has not been using a sling as of this time and therefore to avoid any stiffness I have recommended that she continue to avoid wearing a sling. She should avoid overhead lifting for the next 4-6 weeks. I would like to see her in 6 weeks after physical therapy, sooner if needed. X-rays that were obtained on 04/10/2025 reveal a fracture of the middle 3rd diaphysis of the left clavicle. Coding Level of Care Code Est Pt Level 3 (03540) Diagnoses Fracture of left clavicle S42.002A
[2025-04-22 14:20] VITALS: BMI 38.3
== END 2025-04-22 14:50 | disposition home or self-care (01) ==
LOC: HO.HOS 13:56
PROVIDERS: PCP Internal Medicine; Visit Provider Physician Assistant
DX: S42.002A Fracture of unspecified part of left clavicle, initial encounter for closed fracture (principal)
CPT/HCPCS: 99213

== ENCOUNTER → 2025-04-22 13:55 | Outpatient (BNVA) | payer OTHER, SELFPAY | PROVIDERS: PCP Internal Medicine; Visit Provider Physician Assistant | DX: S42.002A Fracture of unspecified part of left clavicle, initial encounter for closed fracture (principal); E53.8 Deficiency of other specified B group vitamins | CPT/HCPCS: 96372; 99212; J3420 ==

== ENCOUNTER 2025-04-22 14:58 | Outpatient (AMB) | payer OTHER, SELFPAY ==
--- NOTE | 2025-04-22 15:08 | AM.OFFVISNUR ---
Intake Visit Reasons: B-12 shot Allergies No Known Allergies Allergy (Verified 04/22/25 14:20) Office Meds cyanocobalamin (vitamin B-12) 1,000 mcg/mL injection solution Performing Provider: Halle Bonilla MD [facility] [place] [facility] Administered by: Shannon Urrutia RN on 04/22/25 15:08 Dose Route Admin Location Dispensed Lot Number Expiration Date [facility] Senior Architect 1,000 mcg IM right deltoid 1 mL [id number] 11/27/26 65396-477-18 [employer] Total Dispensed Waste 1 mL 0 % Assessment & Plan Assessment & Plan Orders: Orders AMB Vitamin B12 Injection Patient Supplied Today E53.8 - Deficiency of other specified B group vitamins Coding
== END 2025-04-22 15:12 | disposition home or self-care (01) ==
LOC: HO.HMCH 14:59
PROVIDERS: PCP Internal Medicine; Visit Provider Internal Medicine
DX: E53.8 Deficiency of other specified B group vitamins (principal)

== ENCOUNTER → 2025-05-04 19:30 | Outpatient (REF) | payer OTHER, SELFPAY | LOC: HO.SL 19:30 | PROVIDERS: PCP Internal Medicine; Visit Provider Internal Medicine | DX: G47.33 Obstructive sleep apnea (adult) (pediatric) (principal); Z99.89 Dependence on other enabling machines and devices | CPT/HCPCS: 95810 ==

== ENCOUNTER → 2025-05-04 23:31 | Outpatient (BNV) | payer OTHER, SELFPAY | PROVIDERS: PCP Internal Medicine; Visit Provider Internal Medicine | DX: G47.33 Obstructive sleep apnea (adult) (pediatric) (principal); R06.83 Snoring | CPT/HCPCS: 95810 ==

== ENCOUNTER 2025-06-02 09:33 | Outpatient (AMB) | payer OTHER, SELFPAY ==
--- NOTE | 2025-06-02 09:36 | AM.OFFVISNUR ---
Intake Visit Reasons: B12 injection Allergies No Known Allergies Allergy (Verified 04/22/25 14:20) Office Meds cyanocobalamin (vitamin B-12) 1,000 mcg/mL injection solution Performing Provider: Halle Bonilla MD [facility] Administered by: Daya Rose RN on 06/02/25 09:36 Dose Route Admin Location Dispensed Lot Number Expiration Date [employer] Audio Visual Design Engineer 1,000 mcg IM 1 mL [id number] 07/30/24 54767-216-54 [employer] Total Dispensed Waste 1 mL 0 % Assessment & Plan Assessment & Plan Orders: Orders AMB Vitamin B12 Injection Patient Supplied Today E53.8 - Deficiency of other specified B group vitamins Coding
== END 2025-06-02 09:46 | disposition home or self-care (01) ==
LOC: HO.HMCH 09:34
PROVIDERS: PCP Internal Medicine; Visit Provider Internal Medicine
DX: E53.8 Deficiency of other specified B group vitamins (principal)

== ENCOUNTER → 2025-06-02 09:33 | Outpatient (BNVA) | payer OTHER, SELFPAY | PROVIDERS: PCP Internal Medicine; Visit Provider Internal Medicine | DX: E53.8 Deficiency of other specified B group vitamins (principal) | CPT/HCPCS: 96372; J3420 ==

== ENCOUNTER 2025-07-18 08:56 | Outpatient (REF) | payer OTHER, SELFPAY ==
--- NOTE | ~2025-07-18 | MM_ITS ---
EXAMINATION: MM SCREENING DIGITAL BREAST TOMOSYNTHESIS, BILATERAL CLINICAL INFORMATION: Screening. Asymptomatic. COMPARISON: Mammography: Comparison is made with available priors TECHNIQUE: Digital breast mammography with tomosynthesis is performed in both the craniocaudal and mediolateral oblique views along with computer-aided detection (CAD). FINDINGS: The breasts are heterogeneously dense, which may obscure small masses. There are no significant masses, abnormal calcifications, or other abnormalities. MM/MM tomosynthesis screening BI IMPRESSION: No mammographic evidence of malignancy. ASSESSMENT: BI-RADS Category 1: Negative RECOMMENDATION: Routine annual mammography screening. 1 year F/U This examination should not preclude the clinical evaluation of a suspicious palpable abnormality. This patient's information was entered into a reminder system with a target due date for their next mammogram. Electronically signed by: Rosita Resendiz DO 07/21/2025 05:45 PM [facility]
== END 2025-07-18 08:57 | disposition home or self-care (01) ==
LOC: HO.MAMMO 08:56
PROVIDERS: PCP Internal Medicine; Visit Provider Internal Medicine
DX: Z12.31 Encounter for screening mammogram for malignant neoplasm of breast (principal)
CPT/HCPCS: 77063; 77067

== ENCOUNTER → 2025-07-18 09:15 | Outpatient (BNV) | payer OTHER, SELFPAY | PROVIDERS: PCP Internal Medicine; Visit Provider Internal Medicine | DX: Z12.31 Encounter for screening mammogram for malignant neoplasm of breast (principal) | CPT/HCPCS: 77063; 77067 ==

== ENCOUNTER 2025-07-21 08:51 | Outpatient (AMB) | payer OTHER, SELFPAY ==
--- NOTE | 2025-07-21 08:44 | AM.OFFVISNUR ---
Intake Visit Reasons: B-12 Allergies No Known Allergies Allergy (Verified 04/22/25 14:20) Assessment & Plan Assessment & Plan Orders: Orders AMB Vitamin B12 Injection Patient Supplied Today E53.8 - Deficiency of other specified B group vitamins Medications: New cyanocobalamin (vitamin B-12) 1,000 mcg IM ONCE 1 mL 0RF E53.8 - Deficiency of other specified B group vitamins Coding
--- NOTE | 2025-07-21 09:07 | AM.OFFVISNUR ---
Intake Visit Reasons: B-12 Allergies No Known Allergies Allergy (Verified 04/22/25 14:20) Office Meds cyanocobalamin (vitamin B-12) 1,000 mcg/mL injection solution Performing Provider: Halle Bonilla MD [place] [facility] [place] [facility] Administered by: Shannon Urrutia RN on 07/21/25 09:07 Dose Route Admin Location Dispensed Lot Number Expiration Date [facility] Semi Driver 1,000 mcg IM left deltoid 1 mL [id number] 11/27/26 17162-087-76 [employer] Total Dispensed Waste 1 mL 0 % Assessment & Plan Assessment & Plan Orders: Orders AMB Vitamin B12 Injection Patient Supplied Today E53.8 - Deficiency of other specified B group vitamins Coding
== END 2025-07-21 09:10 | disposition home or self-care (01) ==
LOC: HO.HMCH 08:52
PROVIDERS: PCP Internal Medicine; Visit Provider Internal Medicine
DX: E53.8 Deficiency of other specified B group vitamins (principal)

== ENCOUNTER → 2025-07-21 08:51 | Outpatient (BNVA) | payer OTHER, SELFPAY | PROVIDERS: PCP Internal Medicine; Visit Provider Internal Medicine | DX: E53.8 Deficiency of other specified B group vitamins (principal) | CPT/HCPCS: 96372; J3420 ==